=== PATIENT | female | born 2000 | race Caucasian/White ===

== ENCOUNTER 2020-05-26 16:10 | Emergency (ER) | payer MEDICAID, SELFPAY ==
[2020-05-26 16:15] VITALS: BP 167/81; PULSE 106; RESP 17; TEMP 36.9; O2SAT 99
--- NOTE | 2020-05-26 16:33 | ED.FEMALEGU ---
HPI - Female Genitourinary General Chief complaint: Vaginal Bleeding Stated complaint: vaginal bleeding Time Seen by Provider: 05/26/20 16:14 Source: patient and RN notes reviewed Mode of arrival: ambulatory Limitations: no limitations History of Present Illness MD elicited complaint: vaginal bleeding Onset (ago): month(s) (8) Related Data Home Medications Medication Instructions Recorded Confirmed No Home Medications 05/26/20 05/26/20 Allergies Allergy/AdvReac Type Severity Reaction Status Date / Time No Known Allergies Allergy Verified 05/26/20 16:24 Review of Systems Review of Systems: All systems reviewed & are unremarkable except as noted in HPI and below PMFSH Past Medical History Medical History (Updated 05/26/20 @ 17:02 by Gabino Santana MD) Hepatitis C Surgical History Surgical History (Updated 05/26/20 @ 16:45 by Gabino Santana MD) History of appendectomy Social History Social History (Updated 05/26/20 @ 16:45 by Gabino Santana MD) Smoking status: Light tobacco smoker Tobacco type: cigarettes Alcohol intake: current Alcohol use details: occasional Exam Const: General: healthy appearing and no acute distress Nutritional Appearance: well nourished and thin Orientation/consciousness: patient oriented x3 Other: female nurse in room during examination HENMT: Head: normal to inspection Face and sinus: normal facial exam Eyes: Conjunctivae: conjunctivae normal Pupils: Equal, round and reactive pupils present EOM: EOMs intact bilaterally Neck: Neck: normal visual inspection Resp: Effort & Inspection: normal respiratory effort Auscultation: clear to auscultation bilaterally Cardio: Rate: regular rate Rhythm: regular rhythm GI: GI Palp: Yes Soft to palpation and No Tenderness to palpation present (GI) Auscultation: normal bowel sounds Back/Spine/Pelvis: Cervical Spine: cervical ROM normal Thoracic/Lumbar Spine: thoraco-lumbar ROM normal Skin: General skin exam: normal color Rashes: no rashes Neuro: General: patient oriented x3, moves all extremities, no meningeal signs and no focal motor deficits Speech: normal speech Gait exam (Neuro): Normal gait present Extrem: General: normal to inspection and no clubbing, cyanosis or edema Psych: Mental Status: mental status grossly normal Affect: normal affect Attitude: cooperative Thought content: Yes Normal thought content present Judgement: Good judgement present (Psych) Course Vital Signs Vital signs: Vital Signs Temperature 36.9 C 05/26/20 16:15 Pulse Rate 106 H 05/26/20 16:15 Respiratory Rate 17 05/26/20 16:15 Blood Pressure 167/81 H 05/26/20 16:15 Pulse Oximetry 99 05/26/20 16:15 Temperature 36.9 C 05/26/20 16:15 Pulse Rate 106 H 05/26/20 16:15 Respiratory Rate 15 05/26/20 17:08 Blood Pressure 167/81 H 05/26/20 16:15 Pulse Oximetry 99 05/26/20 16:15 MDM - Female Genitourinary MDM Narrative Medical decision making narrative: I discussed differential diagnosis with the patient. Is possible that she is having side effects from the Nexplanon implant causing irregular bleeding. She also may be having retained fragments of conception status post her delivery. Recommended she see a field clerk for further evaluation and possible dilation and curettage. Discharge Plan Discharge Clinical Impression: Dysfunctional uterine bleeding Patient Disposition: Home, Self-Care Condition: Stable Instructions: Abnormal (Dysfunctional) Uterine Bleeding (ED) Additional Instructions: follow-up with field clerk in the next 7-10 days. Continues in tampons as needed. Prescriptions: No Action No Home Medications RF: 0 Follow-up/Referrals: UNKNOWN,DOCTOR [Primary Care Provider] - Time of Disposition: 17:02 Discharge Date/Time: 05/26/20 17:09
[2020-05-26 17:08] VITALS: RESP 15
== END 2020-05-26 17:09 | disposition home or self-care (01) ==
PROVIDERS: Emergency Provider Emergency Medicine
DX: N93.8 Other specified abnormal uterine and vaginal bleeding (principal)
CPT/HCPCS: 99281

== ENCOUNTER 2021-01-10 22:34 | Emergency (ER) | payer MEDICAID, SELFPAY ==
[2021-01-10 23:00] VITALS: BP 138/84; PULSE 81; RESP 20; TEMP 36.7; O2SAT 94
--- NOTE | 2021-01-10 23:21 | ED.EXTPRO ---
HPI - Extremity Problem General Stated complaint: fingers and feet turning purple, burning up. Source: patient Mode of arrival: ambulatory Limitations: no limitations History of Present Illness HPI Narrative: this is a 20-year-old female with a history of hepatitis C complains of some cold extremities mainly in her fingers that change colors and in her toes as well currently not having these symptoms but states that it occurs off and on and has been going on for months, currently has some some dizziness but no syncope no fainting no fever chills no chest pain or shortness of breath. Complaint: extremity pain and cold extremity Onset (ago): month(s) Pain Consistency: intermittent and now resolved Location: upper extremity and lower extremity Severity scale (1-10): 4 Quality: burning Radiation: none Relieving factors: nothing Exacerbating factors: nothing Associated symptoms: denies other symptoms Related Data Allergies Allergy/AdvReac Type Severity Reaction Status Date / Time No Known Allergies Allergy Verified 05/26/20 16:24 Review of Systems Review of Systems: All systems reviewed & are unremarkable except as noted in HPI and below PMFSH Past Medical History Medical History Hepatitis C Surgical History Surgical History History of appendectomy Social History Social History Smoking status: Light tobacco smoker Tobacco type: cigarettes Alcohol intake: current Exam Const: General: no acute distress Orientation/consciousness: patient oriented x3 HENMT: Head: normal to inspection Eyes: Conjunctivae: conjunctivae normal Pupils: Equal, round and reactive pupils present Neck: Neck: normal visual inspection, no lymphadenopathy and no meningeal signs Chest: Chest palpation & inspection: normal inspection of the chest Resp: Effort & Inspection: normal respiratory effort Cardio: Rate: regular rate Rhythm: regular rhythm GI: GI Palp: Yes Soft to palpation : General: Yes no CVA tenderness Urinary Catheter: Urinary Catheter: patent and draining Back/Spine/Pelvis: Back: no CVA tenderness Skin: General skin exam: normal color Rashes: no rashes Neuro: General: patient oriented x3, moves all extremities, no meningeal signs and no focal motor deficits Extrem: General: normal to inspection and no pedal edema Psych: Mental Status: mental status grossly normal Course Course Emergency Course: Currently not having any symptoms will give the patient a dose of Norvasc 2.5 here in the ER and will prescribe a dose and recommend follow-up with her primary care physician. Critical Care Time Critical Care Time Critical Care Time: No Discharge Plan Discharge Clinical Impression: Raynaud's disease Qualifiers: Raynaud?s-associated gangrene presence: without gangrene Qualified Code(s): I73.00 - Raynaud's syndrome without gangrene Patient Disposition: Home, Self-Care Condition: Stable Instructions: Antibiotic Form, Raynaud Disease (ED) Additional Instructions: follow-up with primary care physician within 1 week for further evaluation and treatment. Take medicine as prescribed. Prescriptions: New amlodipine [Norvasc] 2.5 mg tablet 2.5 mg PO DAILY Qty: 14 RF: 0 Follow-up/Referrals: UNKNOWN,DOCTOR [Primary Care Provider] - Time of Disposition: 23:25
[2021-01-10] MEDS: amLODIPine BESYLATE 5 MG TABLET (23:56)
[2021-01-10 23:58] VITALS: BP 138/84; PULSE 80; RESP 20; TEMP 36.6; O2SAT 97
== END 2021-01-11 00:01 | disposition home or self-care (01) ==
PROVIDERS: Emergency Provider Emergency Medicine
DX: I73.00 Raynaud's syndrome without gangrene (principal); M79.603 Pain in arm, unspecified; M79.606 Pain in leg, unspecified; Z86.19 Personal history of other infectious and parasitic diseases; F17.200 Nicotine dependence, unspecified, uncomplicated
CPT/HCPCS: 99283; A9270

== ENCOUNTER 2021-02-13 14:18 | Emergency (ER) | payer BC, SELFPAY ==
--- NOTE | 2021-02-13 14:36 | ED.SKABFB ---
HPI - Skin/Abscess/Foreign Bdy General Chief complaint: Skin/Abscess/Foreign Body Stated complaint: Bit by spider numb/burning Time Seen by Provider: 02/13/21 14:36 Source: patient Mode of arrival: ambulatory Limitations: no limitations History of Present Illness HPI narrative: 20-year-old woman who was previously well comes in today complaining of a spider bite on her right upper back. Patient states that she glimpsed a frank spider that was fuzzy and size of a dollar coin when she fell to the injury. She states she feels ill nauseous but attributes that to walking to the hospital. She denies any vomiting, fever, sweats, weakness. She states there is some numbness around the wound and that the wound itself stings. complaint: insect bite/sting Onset (ago): minute(s) (30) Tetanus up to date: yes Location: back Severity: mild Quality: burning Pain Consistency: constant Relieving factors: none Exacerbating factors: none Context: witnessed insect bite Associated symptoms: nausea Treatments prior to arrival: none Related Data Allergies Allergy/AdvReac Type Severity Reaction Status Date / Time No Known Allergies Allergy Verified 05/26/20 16:24 Review of Systems Review of Systems: All systems reviewed & are unremarkable except as noted in HPI and below Constitutional: Constitutional: Denies fatigue and Denies weakness ENT: Denies nasal congestion and Denies sore throat Cardiovascular: Cardiovascular: Denies chest pain and Denies radiating jaw, neck or arm pain Respiratory: Respiratory: Denies cough and Denies dyspnea Gastrointestinal: Gastrointestinal: Denies abdominal pain, Reports nausea and Denies vomiting Musculoskeletal: Musculoskeletal: Denies back pain, Denies arthralgias and Denies joint swelling Integumentary/Breasts: Skin/Breast: Denies pruritus, Denies erythema and Denies rash Neurologic: Denies vertigo, Denies dizziness and Denies syncope Hematologic/Lymphatic: Hematologic/Lymphatic: Denies easy bleeding and Denies easy bruising Allergic/Immunologic: Allergic/Immunologic: Denies lip swelling, Denies throat swelling and Denies wheezing PMFSH Past Medical History Medical History Hepatitis C Surgical History Surgical History History of appendectomy Social History Social History Smoking status: Light tobacco smoker Tobacco type: cigarettes Alcohol intake: current Exam Const: General: healthy appearing and alert Orientation/consciousness: patient oriented x3 Limitations: no limitations Other: Mildly anxious Eyes: Conjunctivae: conjunctivae normal Pupils: Equal, round and reactive pupils present EOM: EOMs intact bilaterally Resp: Effort & Inspection: normal respiratory effort and not labored Auscultation: clear to auscultation bilaterally, no rales, no rhonchi and no wheezes Cardio: Rate: regular rate Rhythm: regular rhythm Heart sounds: no murmurs Skin: General skin exam: normal color, no jaundice and no pallor Rashes: no rashes Other: 1.5 x 1 cm raised area on the right upper back with some mild surrounding erythema. Appears to be a very small central wound. No active bleeding. Neuro: General: patient oriented x3, moves all extremities, no focal motor deficits and CN's II-XI intact bilaterally Speech: normal speech Gait exam (Neuro): Normal gait present Extrem: General: normal to inspection and no clubbing, cyanosis or edema Psych: Appearance: grossly normal and well kempt Mental Status: mental status grossly normal Affect: normal affect Attitude: cooperative Thought content: Yes Normal thought content present Discharge Plan Discharge Clinical Impression: Spider bite Qualifiers: Encounter type: initial encounter Injury intent: accidental or unintentional Qualified Code(s): T63.301A - Toxic effect of
[2021-02-13 14:37] VITALS: BP 122/82; PULSE 110; RESP 16; TEMP 36.8; O2SAT 98
== END 2021-02-13 14:50 | disposition home or self-care (01) ==
PROVIDERS: Emergency Provider Emergency Medicine
DX: T63.301A Toxic effect of unspecified spider venom, accidental (unintentional), initial encounter (principal)
CPT/HCPCS: 99281; 99282

== ENCOUNTER 2021-03-30 12:33 | Outpatient (CLI) | payer BC, SELFPAY ==
[2021-03-30 12:44] LABS: Basophils Absolute Auto 0.03 K/mm3 (0.00-0.10); Basophils Percent Auto 0.3 % (0.0-1.0); Eosinophils Absolute Auto 0.09 K/mm3 (0.02-0.50); Hematocrit 40.8 % (35.0-49.0); Hemoglobin 13.6 g/dL (12.0-15.0); Immature Granulocyte Absolute 0.02 K/mm3 (0.00-0.00); Immature Granulocyte Percent A 0.2 % (0.0-0.0); Lymphocytes Percent Auto 21.6 % (18.0-42.0); Mean Corpuscular HGB Conc 33.3 g/dL (32.0-36.0); Mean Corpuscular Hemoglobin 26.5 pg (27.0-31.0); Mean Corpuscular Volume 79.4 fL (78.0-102.0); Mean Platelet Volume 11.5 fl (9.2-11.8); Monocytes Absolute Auto 0.54 K/mm3 (0.10-0.90); Monocytes Percent Auto 6.1 % (2.0-11.0); Neutrophils Absolute Auto 6.2 K/mm3 (1.7-7.2); Neutrophils Percent Auto 70.8 % (50.0-70.0); Platelet Count Result 227 K/mm3 (150-420); Red Blood Count 5.14 M/mm3 (4.20-5.40); Red Cell Distribution Width 13.2 % (11.6-14.4); White Blood Count 8.8 K/mm3 (4.8-10.8)
[2021-03-30 12:59] LABS: INR 1.1; Prothrombin Time 11.4 Seconds (9.50-12.10)
[2021-03-30 13:18] LABS: Alanine Aminotransferase 99 U/L (14-59); Alkaline Phosphatase 74 U/L (46-116); Anion Gap 11 mmol/L (8-16); Aspartate Amino Transferase 44 U/L (15-37); Bilirubin,Total 0.6 mg/dL (0.00-1.00); Blood Urea Nitrogen 11 mg/dL (7-18); Calcium 8.8 mg/dL (8.5-10.1); Carbon Dioxide 24 mmol/L (21-32); Chloride 106 mmol/L (98-108); Estimated Glomerular Filt Rate > 60; Glucose 91 mg/dL (70-99); Osmolality Calculated 291 mOsm/kg (285-295); Sodium 141 mmol/L (136-145); Total Protein 7.6 g/dL (6.4-8.2)
[2021-04-02 18:36] LABS: Hepatitis C Additional Testing Has been added; Hepatitis C Virus Antibody Reactive (Nonreactive)
[2021-04-05 14:42] LABS: Hepatitis C Viral RNA PCR 2960 IU/mL
== END 2021-03-30 12:34 | disposition home or self-care (01) ==
LOC: CHSLAB 12:35
PROVIDERS: PCP Family Medicine; Visit Provider Family Medicine
DX: B19.20 Unspecified viral hepatitis C without hepatic coma (principal)
CPT/HCPCS: 36415; 80053; 85025; 85610; 85730

== ENCOUNTER 2021-05-01 14:20 | Emergency (ER) | payer BC, SELFPAY ==
--- NOTE | ~2021-05-01 | US_ITS ---
EXAMINATION: US right upper quadrant DATE: 05/01/2021 15:13 INDICATION: Right upper quadrant abdominal pain. Nausea. Hepatitis C. TECHNIQUE: Multiple grayscale and Doppler ultrasound images of the abdomen were obtained. COMPARISON: None FINDINGS: The visualized portions of the head, body, and tail of the pancreas are normal. The liver i s normal without focal lesion. No liver surface nodularity. There is normal flow in main portal vein. The gallbladder is contracted. No gallstones or gallbladder wall thickening. There was no sonographi c Bro sign. The common duct is normal and measures 3 mm. IMPRESSION: 1. Normal right upper quadrant ultrasound. Reviewed, dictated and finalized at location [facility].
--- NOTE | ~2021-05-01 | CT_ITS ---
EXAMINATION: CT abdomen pelvis w con DATE: 05/01/2021 17:26 INDICATION: Right upper quadrant abdominal pain, tenderness. Nausea, diarrhea. TECHNIQUE: Computed tomography (CT) of the abdomen and pelvis was performed with 100 cc Omnipaque 350 intravenous contrast. Automated exposure control and iterative reconstruction technique were employe d. Exam dose: 189.99 mGy-cm total exam DLP. COMPARISON: 05/01/2021 right upper quadrant abdominal ultrasound, reported normal FINDINGS: The lung bases are clear. Normal heart size. No pericardial or pleural effusion. The liver, gallbladder, bile ducts, spleen, pancreas, pancreatic duct, and adrenal glands and kidneys are normal. No urinary tract calculus or hydroureteronephrosis. Normal caliber of the abdominal aorta. No intraperitoneal or retroperitoneal or pelvic mass lesion or adenopathy or ascites. The uterus and adnexal areas and urinary bladder appear normal. No bowel obstruction, bowel wall thickening, pneumatosis or intraperitoneal free air is detected. No suspicious osteolytic or osteoblastic lesions. IMPRESSION: No significant abnormality Reviewed, dictated and finalized at [facility]. Reviewed, dictated and finalized at location [facility]. IMPRESSION: No significant abnormality
--- NOTE | ~2021-05-01 | XR_ITS ---
XR chest 2V DATE: 05/01/2021 17:26 INDICATION: Weakness TECHNIQUE: PA and lateral views COMPARISON: None FINDINGS: Normal heart size. No hilar or mediastinal enlargement. No pulmonary infiltrate or consolid ation, pleural effusion or pulmonary vascular congestion or pneumothorax. Included skeletal structure s appear normal. IMPRESSION: Negative Reviewed, dictated and finalized at location [facility]. IMPRESSION: Negative
[2021-05-01 14:31] VITALS: BP 132/91; PULSE 95; RESP 16; TEMP 36.9; O2SAT 99
--- NOTE | 2021-05-01 14:44 | ED.ABDPAIN ---
HPI - Abdominal Pain General Chief Complaint: Abdominal Pain Stated Complaint: HAS HEP C LIVER IS HURTING Time Seen by Provider: 05/01/21 14:24 Source: patient Mode of arrival: ambulatory Limitations: no limitations History of Present Illness HPI narrative: 20-year-old woman with a history of hepatitis-C comes ER complaining of right upper quadrant pain that has been present for 4-5 days. The pain comes and goes and is not worsened by fever but is worse by taking a deep breath and with certain movements of her trunk. Pain was intermittent at 1st and now it is constant. She states she has had some mild intermittent nausea and decreased appetite but has had no fever, vomiting. She said she has had soft light brown stools but no black or bloody stools and no dysuria, vaginal discharge, chest pain, shortness of breath or cough. She states she is currently on her period. MD elicited complaint: abdominal pain Pertinent past history: other (Hepatitis-C) Onset (ago): day(s) (4-5) Pain Consistency: constant Location: RUQ Pain scale (0-10): 10 Quality: sharp Radiation: none Migration to: no migration Exacerbating factors: movement and other (Taking a deep breath) Relieving factors: nothing Associated symptoms: nausea Related Data Allergies Allergy/AdvReac Type Severity Reaction Status Date / Time No Known Allergies Allergy Verified 05/26/20 16:24 Review of Systems Review of Systems: All systems reviewed & are unremarkable except as noted in HPI and below Constitutional: Constitutional: Denies chills and Denies fever(s) Eyes: Eyes: Denies change in vision and Denies photophobia ENT: Denies nasal congestion and Denies sore throat Cardiovascular: Cardiovascular: Denies chest pain and Denies radiating jaw, neck or arm pain Respiratory: Respiratory: Denies cough and Denies dyspnea Gastrointestinal: Gastrointestinal: Reports abdominal pain, Denies diarrhea, Reports nausea and Denies vomiting Genitourinary: Genitourinary: Denies hematuria, Denies nocturia and Denies dysuria Musculoskeletal: Musculoskeletal: Denies back pain, Denies arthralgias and Denies joint swelling Integumentary/Breasts: Skin/Breast: Denies pruritus, Denies erythema and Denies rash Neurologic: Denies vertigo, Denies dizziness, Denies syncope and Denies headache(s) Hematologic/Lymphatic: Hematologic/Lymphatic: Denies easy bleeding and Denies easy bruising Allergic/Immunologic: Allergic/Immunologic: Denies lip swelling and Denies throat swelling PMFSH Past Medical History Medical History Hepatitis C Surgical History Surgical History History of appendectomy Social History Social History Smoking status: Light tobacco smoker Tobacco type: cigarettes Alcohol intake: current Alcohol use details: occasional Exam Const: General: healthy appearing, no acute distress and alert Orientation/consciousness: patient oriented x3 Limitations: no limitations HENMT: Head: normal to inspection General nose exam: Normal nares present Face and sinus: normal facial exam Mouth: Yes moist mucous membranes Throat: posterior oropharynx normal Eyes: Conjunctivae: conjunctivae normal Pupils: Equal, round and reactive pupils present EOM: EOMs intact bilaterally Resp: Effort & Inspection: normal respiratory effort and not labored Auscultation: clear to auscultation bilaterally, no rales, no rhonchi and no wheezes Cardio: Rate: regular rate Rhythm: regular rhythm Heart sounds: no murmurs GI: GI Palp: Yes Soft to palpation, Yes Tenderness to palpation present (GI) (Mild right upper quadrant.), No Guarding due to palpation present (GI) and No Palpable mass present Auscultation: normal bowel sounds Skin: General skin exam: normal color, no jaundice and no pallor Rashes: no rashes Neuro: G
[2021-05-01 15:21] LABS: Add Urine Microscopic? YES; Appearance Urine Clear (Clear); Basophils Absolute Auto 0.04 K/mm3 (0.00-0.10); Basophils Percent Auto 0.5 % (0.0-1.0); Bilirubin Urine Negative (Negative); Blood Urine 2+ (Negative); Color Urine Light Yellow (Yellow); Eosinophils Absolute Auto 0.13 K/mm3 (0.02-0.50); Eosinophils Percent Auto 1.8 % (1.0-6.0); Glucose Urine UA Negative (Negative); Hematocrit 41.3 % (35.0-49.0); Hemoglobin 14.1 g/dL (12.0-15.0); Immature Granulocyte Absolute 0.01 K/mm3 (0.00-0.00); Immature Granulocyte Percent A 0.1 % (0.0-0.0); Ketones Urine Negative (Negative); Leukocyte Esterase Ur Negative LEU/UL (Negative); Lymphocytes Absolute Auto 2.12 K/mm3 (1.10-4.50); Lymphocytes Percent Auto 28.6 % (18.0-42.0); Mean Corpuscular HGB Conc 34.1 g/dL (32.0-36.0); Mean Corpuscular Hemoglobin 27.3 pg (27.0-31.0); Mean Corpuscular Volume 79.9 fL (78.0-102.0); Mean Platelet Volume 11.1 fl (9.2-11.8); Monocytes Absolute Auto 0.75 K/mm3 (0.10-0.90); Monocytes Percent Auto 10.1 % (2.0-11.0); Neutrophils Absolute Auto 4.4 K/mm3 (1.7-7.2); Neutrophils Percent Auto 58.9 % (50.0-70.0); Nitrate Urine Negative (Negative); Platelet Count Result 271 K/mm3 (150-420); Protein Urine Negative (Negative); Red Blood Count 5.17 M/mm3 (4.20-5.40); Red Cell Distribution Width 13.4 % (11.6-14.4); Specific Grav Ur 1.015 (1.010-1.020); Urobilinogen Urine 0.2 mg/dL (0.2-1.0); White Blood Count 7.4 K/mm3 (4.8-10.8); pH Urine 6.5 (5.0-8.0)
[2021-05-01 15:29] LABS: Squamous Epithelial Cell Urine Rare /hpf (Few); WBC Urine 0-3 /hpf (0-3)
[2021-05-01 15:30] LABS: Bacteria Urine Trace /hpf
[2021-05-01 15:36] LABS: Alanine Aminotransferase 93 U/L (14-59); Albumin Level 4.2 g/dL (3.4-5.0); Alkaline Phosphatase 75 U/L (46-116); Anion Gap 11 mmol/L (8-16); Aspartate Amino Transferase 47 U/L (15-37); Bilirubin,Total 0.9 mg/dL (0.00-1.00); Blood Urea Nitrogen 14 mg/dL (7-18); Calcium 9.5 mg/dL (8.5-10.1); Carbon Dioxide 29 mmol/L (21-32); Chloride 104 mmol/L (98-108); Estimated CRCL calculation 72 ml/min; Estimated Glomerular Filt Rate > 60; Glucose 69 mg/dL (70-99); Lipase 69 U/L (73-393); Osmolality Calculated 296 mOsm/kg (285-295); Potassium 3.6 mmol/L (3.5-5.1); Sodium 144 mmol/L (136-145); Total Protein 8.3 g/dL (6.4-8.2)
[2021-05-01 15:39] LABS: Lactic Acid Reflex 0.9 mmol/L (0.4-2.0)
[2021-05-01] MEDS: PANTOPRAZOLE SODIUM IV 40 MG VIAL IV PUSH (16:25)
[2021-05-01] MEDS: ONDANSETRON INJ 4 MG/2 ML VIAL IV PUSH (16:25)
[2021-05-01 17:05] LABS: Urine Pregnancy Test Negative
[2021-05-01 17:06] LABS: Pregnancy On Board Control Positive
[2021-05-01 17:55] VITALS: BP 134/81; PULSE 97; RESP 14; TEMP 36.6; O2SAT 99
== END 2021-05-01 17:58 | disposition home or self-care (01) ==
PROVIDERS: Emergency Provider Emergency Medicine; PCP Family Medicine
DX: R10.11 Right upper quadrant pain (principal)
CPT/HCPCS: 36415; 71046; 74177; 76705; 80053; 81001; 81025; 83605; 83690; 85025; 96374; 96375; 99283; 99284; C9113; J2405; Q9967

== ENCOUNTER 2021-06-12 15:56 | Outpatient (CLI) | payer BC, SELFPAY ==
[2021-06-12 16:22] LABS: Amphetamine Screen Urine Negative (Negative); Barbiturate Screen Urine Negative (Negative); Benzodiazepines Screen Urine Negative (Negative); Cannabinoid Screen Urine Positive (Negative); Cocaine Screen Urine Negative (Negative); Methadone Screen Urine Negative (Negative); Opiate Screen Urine Negative (Negative); Phencyclidine Screen Urine Negative (Negative)
[2021-06-12 16:30] LABS: INR 1.2; Prothrombin Time 12.3 Seconds (9.50-12.10)
[2021-06-17 17:47] LABS: Alpha Fetoprotein Tumor Marker 1.7 ng/mL (<6.1)
== END 2021-06-12 15:57 | disposition home or self-care (01) ==
PROVIDERS: PCP Family Medicine
DX: B19.20 Unspecified viral hepatitis C without hepatic coma (principal)
CPT/HCPCS: 36415; 80307; 82105; 85610

== ENCOUNTER 2021-07-11 14:53 | Emergency (ER) | payer BC, SELFPAY ==
[2021-07-11 15:08] VITALS: BP 128/80; PULSE 108; RESP 20; TEMP 36.6; O2SAT 100
[2021-07-11] MEDS: SODIUM CHLORIDE 0.9% IV 1,000 ML 999 ML IV CONT (15:39)
[2021-07-11] MEDS: ONDANSETRON INJ 4 MG/2 ML VIAL IV PUSH (15:40)
[2021-07-11 15:57] LABS: Basophils Absolute Auto 0.05 K/mm3 (0.00-0.10); Basophils Percent Auto 0.5 % (0.0-1.0); Eosinophils Absolute Auto 0.03 K/mm3 (0.02-0.50); Eosinophils Percent Auto 0.3 % (1.0-6.0); Hematocrit 43.2 % (35.0-49.0); Hemoglobin 14.7 g/dL (12.0-15.0); Immature Granulocyte Absolute 0.04 K/mm3 (0.00-0.00); Immature Granulocyte Percent A 0.4 % (0.0-0.0); Lymphocytes Absolute Auto 1.86 K/mm3 (1.10-4.50); Lymphocytes Percent Auto 19.6 % (18.0-42.0); Mean Corpuscular Hemoglobin 27.3 pg (27.0-31.0); Mean Corpuscular Volume 80.3 fL (78.0-102.0); Mean Platelet Volume 11.1 fl (9.2-11.8); Monocytes Percent Auto 7.4 % (2.0-11.0); Neutrophils Absolute Auto 6.8 K/mm3 (1.7-7.2); Neutrophils Percent Auto 71.8 % (50.0-70.0); Platelet Count Result 312 K/mm3 (150-420); Red Blood Count 5.38 M/mm3 (4.20-5.40); Red Cell Distribution Width 13.2 % (11.6-14.4); White Blood Count 9.5 K/mm3 (4.8-10.8)
[2021-07-11 16:03] LABS: Amphetamine Screen Urine Negative (Negative); Barbiturate Screen Urine Negative (Negative); Benzodiazepines Screen Urine Negative (Negative); Cannabinoid Screen Urine Positive (Negative); Cocaine Screen Urine Negative (Negative); Methadone Screen Urine Negative (Negative); Opiate Screen Urine Negative (Negative); Phencyclidine Screen Urine Negative (Negative)
[2021-07-11 16:20] LABS: Alanine Aminotransferase 132 U/L (14-59); Albumin Level 4.4 g/dL (3.4-5.0); Alkaline Phosphatase 83 U/L (46-116); Anion Gap 13 mmol/L (8-16); Aspartate Amino Transferase 56 U/L (15-37); Bilirubin,Total 0.8 mg/dL (0.00-1.00); Blood Urea Nitrogen 10 mg/dL (7-18); Calcium 9.1 mg/dL (8.5-10.1); Carbon Dioxide 27 mmol/L (21-32); Chloride 101 mmol/L (98-108); Creatine Kinase 109 U/L (26-192); Estimated CRCL calculation 69 ml/min; Estimated Glomerular Filt Rate > 60; Glucose 80 mg/dL (70-99); Osmolality Calculated 290 mOsm/kg (285-295); Potassium 3.5 mmol/L (3.5-5.1); Sodium 141 mmol/L (136-145); Total Protein 8.8 g/dL (6.4-8.2)
[2021-07-11 16:21] LABS: Ethanol < 3 mg/dL (0-6)
--- NOTE | 2021-07-11 16:37 | ED.NAVMDI ---
HPI - Nausea/Vomiting/Diarrhea General Chief complaint: Nausea/Vomiting/Diarrhea Stated complaint: Alcohol poisoning Source: patient Mode of arrival: ambulatory Limitations: no limitations History of Present Illness HPI Narrative: this is a 20-year-old female that presents with dry heaves feeling dehydrated after she had a binge drinking overnight and currently having some nausea with dry heaves and had episodes of vomiting with some epigastric discomfort with no abdominal pain no flank pain no dysuria, patient also describes feeling a little dizzy, with no chest pain no shortness of breath. MD elicited complaint: nausea and vomiting Onset (ago): day(s) Description of vomiting: watery Associated nausea: Yes Associated abdominal pain: Yes Location of pain: epigastric Related Data Home Medications Medication Instructions Recorded Confirmed sulfamethoxazole-trimethoprim 1 tablet PO BID 07/11/21 07/11/21 Allergies Allergy/AdvReac Type Severity Reaction Status Date / Time No Known Allergies Allergy Verified 07/11/21 15:13 Review of Systems Review of Systems: All systems reviewed & are unremarkable except as noted in HPI and below PMFSH Past Medical History Medical History Hepatitis C Surgical History Surgical History History of appendectomy Social History Social History Smoking status: Light tobacco smoker Tobacco type: cigarettes Alcohol intake: current Alcohol use details: occasional Exam Const: General: no acute distress Orientation/consciousness: patient oriented x3 HENMT: Head: normal to inspection Eyes: Pupils: Equal, round and reactive pupils present Neck: Neck: normal visual inspection, no lymphadenopathy and no meningeal signs Chest: Chest palpation & inspection: normal inspection of the chest Resp: Effort & Inspection: normal respiratory effort Cardio: Rate: regular rate Rhythm: regular rhythm GI: GI Palp: Yes Soft to palpation and Yes Tenderness to palpation present (GI) ( Epigastric) : General: Yes no CVA tenderness Urinary Catheter: Urinary Catheter: patent and draining Back/Spine/Pelvis: Back: no CVA tenderness Skin: General skin exam: normal color Rashes: no rashes Extrem: General: normal to inspection Psych: Mental Status: mental status grossly normal Course Course Emergency Course: patient states that her dizziness feels better has improved with IV fluids and Zofran, reviewed her laboratory findings. Patient currently resting comfortably and will discharge patient and will discharge with Zofran as needed and advised clear liquid diet till she starts tolerating her food intake. Vital Signs Vital signs: Vital Signs Temperature 36.6 C 07/11/21 15:08 Pulse Rate 108 H 07/11/21 15:08 Respiratory Rate 20 07/11/21 15:08 Blood Pressure 128/80 07/11/21 15:08 Pulse Oximetry 100 07/11/21 15:08 Temperature 36.6 C 07/11/21 15:08 Pulse Rate 108 H 07/11/21 15:08 Respiratory Rate 20 07/11/21 15:08 Blood Pressure 128/80 07/11/21 15:08 Pulse Oximetry 100 07/11/21 15:08 MDM - Nausea/Vomiting/Diarrhea Lab Data Result diagrams: 07/11/21 15:25 07/11/21 15:25 Labs: Lab Results 07/11/21 07/11/21 07/11/21 Range/Units 15:25 15:25 15:25 WBC 9.5 (4.8-10.8) K/mm3 RBC 5.38 (4.20-5.40) M/mm3 Hgb 14.7 (12.0-15.0) g/dL Hct 43.2 (35.0-49.0) % MCV 80.3 (78.0-102.0) fL MCH 27.3 (27.0-31.0) pg MCHC 34.0 (32.0-36.0) g/dL RDW 13.2 (11.6-14.4) % Plt Count 312 (150-420) K/mm3 MPV 11.1 (9.2-11.8) fl Immature Gran % (Auto) 0.4 H (0.0-0.0) % Neut % (Auto) 71.8 H (50.0-70.0) % Lymph % (Auto) 19.6 (18.0-42.0) % Hoke % (Auto) 7.4 (2.0-11.0) % Eos % (Auto) 0.3 L (1.0-6.0) %
[2021-07-11 17:01] VITALS: BP 115/70; PULSE 91; RESP 20; TEMP 37.2; O2SAT 100
== END 2021-07-11 17:05 | disposition home or self-care (01) ==
PROVIDERS: Emergency Provider Emergency Medicine; PCP Family Medicine
DX: E86.0 Dehydration (principal)
CPT/HCPCS: 36415; 80053; 80307; 82550; 83735; 85025; 96361; 96374; 99283; 99284; J2405; J7030

== ENCOUNTER 2021-08-08 16:19 | Emergency (ER) | payer BC, SELFPAY ==
[2021-08-08 16:25] VITALS: BP 123/71; PULSE 106; RESP 24; TEMP 37; O2SAT 100
--- NOTE | 2021-08-08 16:27 | ED.GENADULT ---
HPI - General Adult General Chief complaint: Nausea/Vomiting/Diarrhea Stated complaint: amb Time Seen by Provider: 08/08/21 16:22 Source: patient Mode of arrival: EMS Limitations: no limitations History of Present Illness HPI narrative: Annie is a 20F with a PMH of anemia, Hep C, and IV drug use (clean for 6 years) presented to the ED via EMS. She reportedly drank a bottle of apple crown last night and is very dizzy today as well as anxious and nauseated. She could not tolerate PO fluids and her dizziness became worse so she came to the ED. She is not a frequent drinker. She only drinks twice a month. However, when she does she tends to overdrink. Related Data Allergies Allergy/AdvReac Type Severity Reaction Status Date / Time No Known Allergies Allergy Unverified 08/08/21 16:25 Review of Systems Constitutional: Constitutional: Reports no additional constitutional complaints, Denies chills and Denies fever(s) Eyes: Eyes: Reports no additional eye complaints ENT: Reports system reviewed and no additional complaints, except as documented Cardiovascular: Cardiovascular: Reports no additional cardiovascular complaints Respiratory: Respiratory: Reports no additional respiratory complaints Gastrointestinal: Gastrointestinal: Reports as per HPI Genitourinary: Genitourinary: Reports no additional female genitourinary complaints Musculoskeletal: Musculoskeletal: Reports no additional musculoskeletal complaints Integumentary/Breasts: Skin/Breast: Reports system reviewed and no additional complaints, except as docu Neurologic: Comments: tremors Psychiatric: Psychiatric: Reports anxiety and Reports depression Endocrine: Endocrine: Reports no additional endocrine complaints Hematologic/Lymphatic: Hematologic/Lymphatic: Reports no additional hematologic/lymphatic complaints Allergic/Immunologic: Allergic/Immunologic: Reports no additional allergic/immunologic complaints [facility] Past Medical History Medical History Hepatitis C Surgical History Surgical History History of appendectomy Social History Social History Smoking status: Light tobacco smoker Tobacco type: cigarettes Alcohol intake: current Alcohol use details: occasional Exam Const: General: no acute distress and alert Orientation/consciousness: patient oriented x3 Limitations: No altered mental status HENMT: Head: normal to inspection Other: atrauamtic. Dry mucous membranes Eyes: Conjunctivae: conjunctivae normal Pupils: Equal, round and reactive pupils present Neck: Neck: normal visual inspection Chest: Chest palpation & inspection: normal inspection of the chest Resp: Effort & Inspection: normal respiratory effort Auscultation: clear to auscultation bilaterally Cardio: Rate: tachycardic Rhythm: regular rhythm Heart sounds: no murmurs GI: Inspection: non-distended GI Palp: Yes Soft to palpation, No Tenderness to palpation present (GI) and No Guarding due to palpation present (GI) Skin: General skin exam: normal color Rashes: no rashes Neuro: General: patient oriented x3, moves all extremities and no focal motor deficits Other: no asterixes Extrem: General: normal to inspection Psych: Appearance: grossly normal Mental Status: mental status grossly normal Course Course Emergency Course: Ordered labs, fluids, zofran and ativan. Labs were largely unremarkable so she was discharged home. Vital Signs Vital signs: Vital Signs Temperature 98.6 F 08/08/21 16:25 Pulse Rate 106 H 08/08/21 16:25 Respiratory Rate 24 H 08/08/21 16:25 Blood Pressure 123/71 08/08/21 16:25 Pulse Oximetry 100 08/08/21 16:25 Temperature 98.6 F 08/08/21 16:25 Pulse Rate 106 H 08/08/21 16:25 Respiratory Rate 24 H 08/08/21 16:25 Blood Pressure 123/71
[2021-08-08 16:42] LABS: Basophils Absolute Auto 0.03 K/mm3 (0.00-0.10); Basophils Percent Auto 0.4 % (0.0-1.0); Eosinophils Absolute Auto 0.06 K/mm3 (0.02-0.50); Eosinophils Percent Auto 0.8 % (1.0-6.0); Hematocrit 42.7 % (35.0-49.0); Hemoglobin 14.5 g/dL (12.0-15.0); Immature Granulocyte Absolute 0.03 K/mm3 (0.00-0.00); Immature Granulocyte Percent A 0.4 % (0.0-0.0); Lymphocytes Absolute Auto 1.97 K/mm3 (1.10-4.50); Lymphocytes Percent Auto 25.1 % (18.0-42.0); Mean Corpuscular Volume 79.5 fL (78.0-102.0); Mean Platelet Volume 11.2 fl (9.2-11.8); Monocytes Absolute Auto 0.51 K/mm3 (0.10-0.90); Monocytes Percent Auto 6.5 % (2.0-11.0); Neutrophils Absolute Auto 5.2 K/mm3 (1.7-7.2); Neutrophils Percent Auto 66.8 % (50.0-70.0); Platelet Count Result 295 K/mm3 (150-420); Red Blood Count 5.37 M/mm3 (4.20-5.40); Red Cell Distribution Width 12.7 % (11.6-14.4); White Blood Count 7.8 K/mm3 (4.8-10.8)
[2021-08-08 16:54] LABS: Add Urine Microscopic? NO; Appearance Urine Clear (Clear); Bilirubin Urine Negative (Negative); Blood Urine Negative (Negative); Color Urine Light Yellow (Yellow); Glucose Urine UA Negative (Negative); Ketones Urine Negative (Negative); Leukocyte Esterase Ur Negative (Negative); Nitrate Urine Negative (Negative); Protein Urine Negative (Negative); Urobilinogen Urine 0.2 mg/dL (0.2-1.0); pH Urine 7.5 (5.0-8.0)
[2021-08-08 16:57] LABS: Pregnancy On Board Control Positive; Urine Pregnancy Test Negative
[2021-08-08 16:57] LABS: Alanine Aminotransferase 43 U/L (14-59); Albumin Level 4.3 g/dL (3.4-5.0); Alkaline Phosphatase 80 U/L (46-116); Ammonia < 10 umol/L (11-32); Anion Gap 15 mmol/L (8-16); Aspartate Amino Transferase 23 U/L (15-37); Bilirubin,Total 0.8 mg/dL (0.00-1.00); Blood Urea Nitrogen 14 mg/dL (7-18); Calcium 9.7 mg/dL (8.5-10.1); Carbon Dioxide 24 mmol/L (21-32); Chloride 104 mmol/L (98-108); Estimated CRCL calculation 65 ml/min; Estimated Glomerular Filt Rate > 60; Ethanol < 3 mg/dL (0-6); Glucose 95 mg/dL (70-99); Osmolality Calculated 296 mOsm/kg (285-295); Potassium 3.2 mmol/L (3.5-5.1); Sodium 143 mmol/L (136-145); Total Protein 8.7 g/dL (6.4-8.2)
[2021-08-08 17:00] LABS: Amphetamine Screen Urine Negative (Negative); Barbiturate Screen Urine Negative (Negative); Benzodiazepines Screen Urine Negative (Negative); Cannabinoid Screen Urine Positive (Negative); Cocaine Screen Urine Negative (Negative); Methadone Screen Urine Negative (Negative); Opiate Screen Urine Negative (Negative); Phencyclidine Screen Urine Negative (Negative)
[2021-08-08 17:03] LABS: Thyroid Stimulating Hormone 0.62 uIU/mL (0.36-3.74)
[2021-08-08] MEDS: SODIUM CHLORIDE 0.9% IV 1,000 ML 999 ML IV CONT (17:03)
[2021-08-08] MEDS: LORazepam INJ (*CRX) 2 MG/ML VIAL 1 MG IV PUSH (17:05)
[2021-08-08] MEDS: ONDANSETRON INJ 4 MG/2 ML VIAL IV PUSH (17:05)
[2021-08-08 18:09] VITALS: BP 105/70; PULSE 100; RESP 16; TEMP 36.4; O2SAT 100
== END 2021-08-08 18:05 | disposition home or self-care (01) ==
PROVIDERS: Emergency Provider Family Medicine; PCP Family Medicine
DX: F10.129 Alcohol abuse with intoxication, unspecified (principal)
CPT/HCPCS: 36415; 80053; 80307; 81003; 81025; 82140; 84443; 85025; 96361; 96374; 96375; 99283; 99284; J2060; J2405; J7030

== ENCOUNTER 2021-09-07 13:56 | Emergency (ER) | payer BC, SELFPAY ==
--- NOTE | ~2021-09-07 | US_ITS ---
EXAMINATION: US abdomen limited EXAM DATE: 09/07/2021 14:36 INDICATION: right upper quadrant pain. TECHNIQUE: Multiple grayscale and Doppler images of the abdomen right upper quadrant were obtained (b y a technologist who performed the scan) and subsequently reviewed. Comparison is made to prior exami nation from 05/01/2021. FINDINGS: The pancreatic head and body are normal in appearance. The pancreatic tail is not visualized. The l iver has normal echogenicity and contour. There are no focal liver lesions identified. There is no evidence of intrahepatic biliary duct dilation. Portal venous flow was seen in the hepatopedal, nor mal direction and has normal Doppler waveform. No right-sided hydronephrosis. Common bile duct measures 2 mm, which is normal. The gallbladder wall is normal in thickness, with ex pected amount of distention. No sonographic evidence of pericholecystic fluid. There is no cholelit hiases. Technologist performing exam reports patient did not demonstrate sonographic Bro's sign. Please note that this sign is less reliable in patients who have received pain medication. IMPRESSION: 1. Unremarkable abdominal ultrasound exam. Reviewed, dictated and finalized at location B. [employer]
[2021-09-07 14:12] VITALS: BP 109/71; PULSE 92; RESP 20; TEMP 36.5; O2SAT 99
--- NOTE | 2021-09-07 14:18 | ED.GENADULT ---
HPI - General Adult General Chief complaint: Abdominal Pain Stated complaint: abd/stomache pain History of Present Illness HPI narrative: Annie is a 20F with a PMH of anemia, Hep C, and IV drug use (clean for 6 years) presented to the ED with right upper quadrant pain. It started 7 hours ago and has become worse. It is a stabbing pain in her RUQ. She had 1 episode of diarrhea and has had some nausea. She denies fevers, chills, vomiting, CP and SOB. Related Data Home Medications Medication Instructions Recorded Confirmed escitalopram oxalate 10 mg PO DAILY 09/07/21 09/07/21 Allergies Allergy/AdvReac Type Severity Reaction Status Date / Time No Known Allergies Allergy Unverified 09/07/21 14:44 Review of Systems Constitutional: Constitutional: Reports no additional constitutional complaints Eyes: Eyes: Reports no additional eye complaints ENT: Reports system reviewed and no additional complaints, except as documented Cardiovascular: Cardiovascular: Reports no additional cardiovascular complaints Respiratory: Respiratory: Reports no additional respiratory complaints Gastrointestinal: Gastrointestinal: Reports as per HPI Genitourinary: Genitourinary: Reports no additional female genitourinary complaints Musculoskeletal: Musculoskeletal: Reports no additional musculoskeletal complaints Integumentary/Breasts: Skin/Breast: Reports system reviewed and no additional complaints, except as docu Neurologic: Reports system reviewed and no additional complaints, except as documented Psychiatric: Psychiatric: Reports no additional psychiatric complaints Endocrine: Endocrine: Reports no additional endocrine complaints Hematologic/Lymphatic: Hematologic/Lymphatic: Reports no additional hematologic/lymphatic complaints Allergic/Immunologic: Allergic/Immunologic: Reports no additional allergic/immunologic complaints [facility] Past Medical History Medical History Hepatitis C Surgical History Surgical History History of appendectomy Social History Social History Smoking status: Light tobacco smoker Tobacco type: cigarettes Alcohol intake: current Alcohol use details: occasional Exam Const: General: no acute distress and alert Orientation/consciousness: patient oriented x3 Limitations: No altered mental status HENMT: Head: normal to inspection Other: Normocephalic, atraumatic Eyes: Conjunctivae: conjunctivae normal Pupils: Equal, round and reactive pupils present Neck: Neck: normal visual inspection Chest: Chest palpation & inspection: normal inspection of the chest Resp: Effort & Inspection: normal respiratory effort, not labored and not tachypneic Auscultation: clear to auscultation bilaterally Cardio: Rate: regular rate Rhythm: regular rhythm GI: GI Palp: Yes Guarding due to palpation present (GI) and Yes Rigid due to palpation Other: Diffusely TTP but most TTP in the RUQ, with some guarding and rebound tenderness. +Bro sign : General: Yes no CVA tenderness Skin: General skin exam: normal color Rashes: no rashes Neuro: General: patient oriented x3, moves all extremities, no meningeal signs and CN's II-XI intact bilaterally Extrem: General: normal to inspection Psych: Mental Status: mental status grossly normal Thought content: Yes Normal thought content present Course Course Emergency Course: Ordered labs, US and IV acetaminophen (avoided narcotics given history of abuse) Labs and imaging were unremarkable. However, on repeat exam her abdomen had minimal tenderness and no guarding or rebound tenderness so she was discharged home. Vital Signs Vital signs: Vital Signs Temperature 97.7 F 09/07/21 14:12 Pulse Rate 92 09/07/21 14:12 Respiratory Rate 20 09/07/21 14:12 Blood Pressure 109/71 12
[2021-09-07 14:46] LABS: Basophils Absolute Auto 0.04 K/mm3 (0.00-0.10); Basophils Percent Auto 0.7 % (0.0-1.0); Eosinophils Absolute Auto 0.08 K/mm3 (0.02-0.50); Eosinophils Percent Auto 1.3 % (1.0-6.0); Hematocrit 39.2 % (35.0-49.0); Hemoglobin 13.2 g/dL (12.0-15.0); Immature Granulocyte Absolute 0.01 K/mm3 (0.00-0.00); Immature Granulocyte Percent A 0.2 % (0.0-0.0); Lymphocytes Absolute Auto 1.73 K/mm3 (1.10-4.50); Lymphocytes Percent Auto 28.5 % (18.0-42.0); Mean Corpuscular HGB Conc 33.7 g/dL (32.0-36.0); Mean Corpuscular Hemoglobin 27.4 pg (27.0-31.0); Mean Corpuscular Volume 81.5 fL (78.0-102.0); Mean Platelet Volume 11.9 fl (9.2-11.8); Monocytes Absolute Auto 0.51 K/mm3 (0.10-0.90); Monocytes Percent Auto 8.4 % (2.0-11.0); Neutrophils Absolute Auto 3.7 K/mm3 (1.7-7.2); Neutrophils Percent Auto 60.9 % (50.0-70.0); Platelet Count Result 224 K/mm3 (150-420); Red Blood Count 4.81 M/mm3 (4.20-5.40); Red Cell Distribution Width 13.2 % (11.6-14.4); White Blood Count 6.1 K/mm3 (4.8-10.8)
[2021-09-07 14:52] LABS: Add Urine Microscopic? NO; Appearance Urine Clear (Clear); Bilirubin Urine Negative (Negative); Blood Urine Negative (Negative); Color Urine Light Yellow (Yellow); Glucose Urine UA Negative (Negative); Ketones Urine Negative (Negative); Leukocyte Esterase Ur Negative (Negative); Nitrate Urine Negative (Negative); Protein Urine Negative (Negative); Specific Grav Ur >= 1.030 (1.010-1.020); Urobilinogen Urine 0.2 mg/dL (0.2-1.0); pH Urine 5.5 (5.0-8.0)
[2021-09-07 14:57] LABS: INR 1.1; Prothrombin Time 11.7 Seconds (9.50-12.10)
[2021-09-07 15:04] LABS: Lactic Acid Reflex 0.9 mmol/L (0.4-2.0)
[2021-09-07 15:08] LABS: Alanine Aminotransferase 53 U/L (14-59); Albumin Level 3.9 g/dL (3.4-5.0); Alkaline Phosphatase 60 U/L (46-116); Anion Gap 8 mmol/L (8-16); Aspartate Amino Transferase 34 U/L (15-37); Bilirubin,Total 0.9 mg/dL (0.00-1.00); Blood Urea Nitrogen 12 mg/dL (7-18); Calcium 9.4 mg/dL (8.5-10.1); Carbon Dioxide 26 mmol/L (21-32); Chloride 105 mmol/L (98-108); Estimated CRCL calculation 84 ml/min; Estimated Glomerular Filt Rate > 60; Glucose 81 mg/dL (70-99); Lipase 59 U/L (73-393); Osmolality Calculated 286 mOsm/kg (285-295); Potassium 3.6 mmol/L (3.5-5.1); Sodium 139 mmol/L (136-145); Total Protein 7.4 g/dL (6.4-8.2)
[2021-09-07 15:10] LABS: CRP < 0.5 mg/dL (0.0-0.9)
[2021-09-07 15:30] VITALS: BP 99/62; PULSE 80; RESP 20; TEMP 36.6; O2SAT 100
== END 2021-09-07 15:30 | disposition home or self-care (01) ==
PROVIDERS: Emergency Provider Family Medicine; PCP Family Medicine
DX: R10.9 Unspecified abdominal pain (principal)
CPT/HCPCS: 36415; 76705; 80053; 81003; 83605; 83690; 85025; 85610; 86140; 96374; 99283; 99284; J0131

== ENCOUNTER 2021-11-12 16:27 | Outpatient (CLI) | payer BC, SELFPAY ==
[2021-11-12 17:26] LABS: Influenza A QL RT-PCR Negative (Negative); Influenza B QL RT-PCR Negative (Negative); SARS-CoV-2 RNA PCR Negative (Negative)
== END 2021-11-12 16:28 | disposition home or self-care (01) ==
LOC: CHSLAB 16:30
PROVIDERS: PCP Family Medicine; Visit Provider Family Medicine
DX: R05.1 Acute cough (principal); Z20.822 Contact with and (suspected) exposure to COVID-19
CPT/HCPCS: 87502; C9803; U0003; U0005

== ENCOUNTER 2022-04-05 17:03 | Emergency (ER) | payer BC, SELFPAY ==
[2022-04-05 17:10] VITALS: BP 117/87; PULSE 64; RESP 16; TEMP 36.6; O2SAT 99
--- NOTE | 2022-04-05 17:58 | ED.GENADULT ---
HPI - General Adult General Chief complaint: Weakness Stated complaint: confusion/temp 95.6 History of Present Illness HPI narrative: The patient is a 21-year-old woman who presents with generalized weakness and feeling tired, in a fog, with mild confusion over the past 2 hours. She had 3 episodes of watery diarrhea this morning, and occasional nausea today but no vomiting. Mild abdominal discomfort on the right side which is minimal. No fevers chills diaphoresis cough rhinorrhea nasal congestion or chest pain or back pain or dysuria urinary urgency or frequency. She is , last menstrual period is currently. She has had an appendectomy. She also has hepatitis-C and history of anxiety. No COVID symptoms. Related Data Allergies Allergy/AdvReac Type Severity Reaction Status Date / Time No Known Allergies Allergy Verified 04/05/22 17:46 Review of Systems Review of Systems: All systems reviewed & are unremarkable except as noted in HPI and below Constitutional: Constitutional: Reports no additional constitutional complaints, Denies anorexia, Reports body ache(s), Denies chills, Denies excessive sweating, Reports fatigue, Denies fever(s), Denies frequent falls, Denies headache(s), Reports malaise and Denies poor appetite Eyes: Eyes: Reports no additional eye complaints, Denies blurry vision, Denies change in vision, Denies irritation, Denies itchy eyes and Denies photophobia ENT: Reports system reviewed and no additional complaints, except as documented, Reports Normal hearing present, Denies change in voice, Denies dysphagia, Denies vertigo, Denies dizziness, Denies ear discharge, Denies headache(s), Denies hearing loss, Denies hoarseness, Denies nasal congestion, Denies neck pain, Denies sinus pressure, Denies sore throat and Denies throat swelling Cardiovascular: Cardiovascular: Reports no additional cardiovascular complaints, Denies chest pain, Denies syncope, Denies rapid heart rate, Denies irregular heart rhythm, Denies leg edema, Denies dyspnea and Denies slow heart rate Respiratory: Respiratory: Reports no additional respiratory complaints, Denies cough, Denies dyspnea, Denies stridor and Denies wheezing Gastrointestinal: Gastrointestinal: Reports no additional gastrointestinal complaints, Reports abdominal pain, Denies melena, Denies hematochezia, Denies dysphagia, Denies diarrhea, Reports nausea and Denies vomiting Genitourinary: Genitourinary: Denies hematuria, Denies urinary frequency, Denies dysuria, Denies flank pain and Denies urinary urgency Musculoskeletal: Musculoskeletal: Reports no additional musculoskeletal complaints, Denies abnormal gait, Denies back pain, Reports myalgias, Denies arthralgias, Denies joint swelling, Denies limited range of motion, Denies muscle cramps, Denies muscle weakness, Denies neck pain and Denies numbness Integumentary/Breasts: Skin/Breast: Reports system reviewed and no additional complaints, except as docu, Denies breast pain, Denies change in pigmentation, Denies pruritus, Denies erythema and Denies wounds Neurologic: Reports system reviewed and no additional complaints, except as documented, Reports Normal hearing present, Denies Abnormal speech present, Denies abnormal gait, Reports confusion, Denies vertigo, Denies dizziness, Denies syncope, Denies frequent falls, Denies headache(s), Denies focal weakness, Denies numbness and Denies paresthesias Psychiatric: Psychiatric: Reports no additional psychiatric complaints and Denies confusion Endocrine: Endocrine: Reports no additional endocrine complaints, Denies cold intolerance, Denies excessive sweating, Denies fatigue and Denies heat intolerance Hematologic/Lymphatic: Hematologic/Lymphatic: Reports no additional hematologic/lymphatic complaints, Denies easy bleeding and Denies easy bruising Allergic/Immunologic: Allergic/Immunologic: Reports no additional allergic/immunologic complaints, Denies urticaria, Denies itchy eyes, Denies throat swe
[2022-04-05 18:04] LABS: Add Urine Microscopic? YES; Appearance Urine Clear (Clear); Bilirubin Urine Negative (Negative); Blood Urine 3+ (Negative); Color Urine Light Yellow (Yellow); Glucose Urine UA Negative (Negative); Ketones Urine Negative (Negative); Leukocyte Esterase Ur Negative LEU/UL (Negative); Nitrate Urine Negative (Negative); Protein Urine Negative (Negative); Specific Grav Ur <= 1.005 (1.010-1.020); Urobilinogen Urine 0.2 mg/dL (0.2-1.0)
[2022-04-05 18:10] LABS: Pregnancy On Board Control Positive; Urine Pregnancy Test Negative
[2022-04-05 18:30] LABS: Bacteria Urine None seen /hpf; Squamous Epithelial Cell Urine Rare /hpf (Few); WBC Urine 0-3 /hpf (0-3)
[2022-04-05 18:45] LABS: Amphetamine Screen Urine Negative (Negative); Barbiturate Screen Urine Negative (Negative); Benzodiazepines Screen Urine Negative (Negative); Cannabinoid Screen Urine Negative (Negative); Cocaine Screen Urine Negative (Negative); Methadone Screen Urine Negative (Negative); Opiate Screen Urine Negative (Negative); Phencyclidine Screen Urine Negative (Negative)
== END 2022-04-05 17:58 | disposition left against medical advice (07) ==
PROVIDERS: Emergency Provider Emergency Medicine; PCP Family Medicine
DX: R53.1 Weakness (principal)
CPT/HCPCS: 80307; 81001; 81025; 99283

== ENCOUNTER 2022-07-06 16:46 | Emergency (ER) | payer BC, SELFPAY ==
[2022-07-06 16:50] VITALS: BP 132/77; PULSE 100; RESP 18; TEMP 36.6; O2SAT 99
--- NOTE | 2022-07-06 16:53 | ED.DENTAL ---
HPI - Dental/Oral General Chief complaint: Dental/Oral Stated complaint: tooth ache Time Seen by Provider: 07/06/22 16:52 Source: patient and RN notes reviewed Mode of arrival: ambulatory Limitations: no limitations History of Present Illness Complaint: tooth pain Location: Tooth # (13) Onset (ago): minute(s) (20) Duration: constant Severity: moderate Relieving factors: nothing Exacerbating factors: chewing Context: history of dental caries Treatment prior to arrival: oral analgesic (Aleve) Related Data Allergies Allergy/AdvReac Type Severity Reaction Status Date / Time No Known Allergies Allergy Verified 07/06/22 16:53 Review of Systems Review of Systems: All systems reviewed & are unremarkable except as noted in HPI and below Constitutional: Constitutional: Denies chills and Denies fever(s) PMFSH Past Medical History Medical History Hepatitis C Surgical History Surgical History History of appendectomy Social History Social History Smoking status: Light tobacco smoker Tobacco type: cigarettes Alcohol intake: current Alcohol use details: occasional Exam Const: General: healthy appearing, no acute distress and alert Nutritional Appearance: well nourished Orientation/consciousness: patient oriented x3 Limitations: no limitations Other: female nurse in room during examination. HENMT: Head: normal to inspection Ears: external ears normal Face and sinus: normal facial exam Mouth: Yes moist mucous membranes Teeth and gingiva: abnormal tooth and associated gingiva upper left second bicuspid tender and other ( Cavity center of tooth) Throat: posterior oropharynx normal Eyes: Conjunctivae: conjunctivae normal Pupils: Equal, round and reactive pupils present EOM: EOMs intact bilaterally Neck: Neck: normal visual inspection Resp: Effort & Inspection: normal respiratory effort Auscultation: clear to auscultation bilaterally Cardio: Rate: regular rate Rhythm: regular rhythm GI: GI Palp: Yes Soft to palpation and No Tenderness to palpation present (GI) Auscultation: normal bowel sounds Back/Spine/Pelvis: Cervical Spine: cervical ROM normal Thoracic/Lumbar Spine: thoraco-lumbar ROM normal Skin: General skin exam: normal color Rashes: no rashes Neuro: General: patient oriented x3, moves all extremities and no focal motor deficits Speech: normal speech Gait exam (Neuro): Normal gait present Extrem: General: normal to inspection and no clubbing, cyanosis or edema Psych: Mental Status: mental status grossly normal Affect: normal affect Attitude: cooperative Course Vital Signs Vital signs: Vital Signs Temperature 36.6 C 07/06/22 16:50 Pulse Rate 100 07/06/22 16:50 Respiratory Rate 18 07/06/22 16:50 Blood Pressure 132/77 07/06/22 16:50 Pulse Oximetry 99 07/06/22 16:50 Oxygen Delivery Room Air 07/06/22 16:50 Temperature 36.6 C 07/06/22 16:50 Pulse Rate 100 07/06/22 16:50 Respiratory Rate 18 07/06/22 16:50 Blood Pressure 132/77 07/06/22 16:50 Pulse Oximetry 99 07/06/22 16:50 Oxygen Delivery Room Air 07/06/22 16:50 Discharge Plan Discharge Clinical Impression: Pain, dental Patient Disposition: Home, Self-Care Condition: Stable Instructions: Toothache (ED) Additional Instructions: keep your appointment with dentist tomorrow. Get some dental wax and placed that over the opening of the tooth. Do not use any other Advil, Aleve, ibuprofen or Motrin while using nabumetone for pain. Prescriptions: New nabumetone 750 mg tablet 750 mg PO BID 10 Days Qty: 20 0RF Follow-up/Referrals: Jamaal Hodges MD [Primary Care Provider] - Time of Disposition: 17:02
[2022-07-06] MEDS: KETOROLAC 30 MG/ML VIAL (*BKC) IM (17:03)
== END 2022-07-06 17:30 | disposition home or self-care (01) ==
PROVIDERS: Emergency Provider Emergency Medicine; PCP Family Medicine
DX: K08.89 Other specified disorders of teeth and supporting structures (principal)
CPT/HCPCS: 96372; 99283; J1885

== ENCOUNTER 2022-12-27 11:40 | Emergency (ER) | payer BC, SELFPAY ==
[2022-12-27 11:40] VITALS: BP 132/79; PULSE 98; RESP 16; TEMP 36.6; O2SAT 100
--- NOTE | 2022-12-27 12:15 | ED.GENADULT ---
HPI - General Adult General Chief complaint: Upper Respiratory Infection Stated complaint: allergy issues; itchy eyes and nasal congestion Time Seen by Provider: 12/27/22 12:00 History of Present Illness HPI narrative: The patient is a 22 with history of intermittent seasonal allergies. For the last 4 days, she has had exacerbation of her seasonal allergies as characterized by mild swelling of the eyes, itchiness in the face and eyes, with watery eyes, nasal congestion, rhinorrhea. She has tried [id number] remedies such as Claritin, Zyrtec, Benadryl, fix. No relief. No sore throat or cough. No dyspnea. No abdominal pain or nausea or vomiting. No fevers or chills or diaphoresis. No urinary symptoms. Does not believe she is . Related Data Allergies Allergy/AdvReac Type Severity Reaction Status Date / Time No Known Allergies Allergy Verified 12/27/22 11:46 Review of Systems Review of Systems: All systems reviewed & are unremarkable except as noted in HPI and below Constitutional: Constitutional: Reports as per HPI, Reports no additional constitutional complaints, Denies chills, Denies excessive sweating, Denies fatigue, Denies fever(s), Denies headache(s) and Denies weakness Eyes: Eyes: Reports as per HPI, Reports no additional eye complaints, Denies change in vision, Reports irritation, Reports itchy eyes, Denies loss of vision, Reports requires corrective lenses and Denies photophobia ENT: Reports system reviewed and no additional complaints, except as documented, Reports as per HPI, Denies change in voice, Denies dysphagia, Denies vertigo, Denies dizziness, Denies headache(s), Denies hoarseness, Denies lip swelling, Reports nasal congestion, Reports nasal discharge, Denies sore throat, Denies throat swelling and Denies tongue swelling Cardiovascular: Cardiovascular: Reports as per HPI, Reports no additional cardiovascular complaints, Denies chest pain, Denies syncope, Denies rapid heart rate and Denies dyspnea Respiratory: Respiratory: Reports as per HPI, Reports no additional respiratory complaints, Denies chest congestion, Denies cough, Denies dyspnea and Denies wheezing Gastrointestinal: Gastrointestinal: Reports as per HPI, Reports no additional gastrointestinal complaints, Denies abdominal pain, Denies constipation, Denies dysphagia, Denies diarrhea, Denies nausea and Denies vomiting Genitourinary: Genitourinary: Reports as per HPI, Denies hematuria, Denies urinary frequency, Denies dysuria, Denies urinary incontinence and Denies urinary urgency Musculoskeletal: Musculoskeletal: Reports no additional musculoskeletal complaints, Denies back pain, Denies myalgias, Denies arthralgias, Denies joint swelling and Denies numbness Integumentary/Breasts: Skin/Breast: Reports system reviewed and no additional complaints, except as docu, Denies pruritus, Denies erythema, Denies rash and Denies skin ulcer Neurologic: Reports system reviewed and no additional complaints, except as documented, Reports as per HPI, Denies confusion, Denies vertigo, Denies dizziness, Denies syncope, Denies headache(s), Denies focal weakness, Denies numbness and Denies weakness Psychiatric: Psychiatric: Reports as per HPI, Denies anxiety, Denies confusion, Denies depression, Denies homicidal ideation and Denies suicidal ideation Endocrine: Endocrine: Reports no additional endocrine complaints, Denies excessive sweating, Denies fatigue, Denies polydipsia and Denies polyuria Hematologic/Lymphatic: Hematologic/Lymphatic: Reports no additional hematologic/lymphatic complaints, Denies easy bleeding and Denies easy bruising Allergic/Immunologic: Allergic/Immunologic: Reports no additional allergic/immunologic complaints, Denies lip swelling, Denies throat swelling, Denies tongue swelling and Denies wheezing PMFSH Past Medical History Medical History Hepatitis C Surgical History Surgical History (R
[2022-12-27] MEDS: predniSONE 40 MG, predniSONE 10 MG 50 MG PO (12:30)
[2022-12-27] MEDS: LORATADINE 10 MG TABLET 20 MG PO (12:31)
[2022-12-27] MEDS: hydrOXYzine HCL 25 MG TABLET PO (12:32)
[2022-12-27 12:40] LABS: Appearance Urine Clear (Clear); Bilirubin Urine Negative (Negative); Blood Urine Negative (Negative); Color Urine Yellow (Yellow); Glucose Urine UA Negative (Negative); Ketones Urine Negative (Negative); Leukocyte Esterase Ur Trace LEU/UL (Negative); Nitrate Urine Negative (Negative); Protein Urine Negative (Negative); Specific Grav Ur 1.025 (1.010-1.020); Urobilinogen Urine 0.2 mg/dL (0.2-1.0)
[2022-12-27 12:41] LABS: Pregnancy On Board Control Positive; Urine Pregnancy Test Negative
[2022-12-27 12:45] LABS: Add Urine Microscopic? YES; Bacteria Urine 2+ /hpf; Mucus Urine Few /lpf; RBC Urine None seen /hpf (0-2); Squamous Epithelial Cell Urine Moderate /hpf (Few); WBC Urine 0-3 /hpf (0-3)
[2022-12-27 13:08] LABS: Strep Group A RT-PCR NOT DETECTED (Negative)
--- NOTE | 2022-12-27 13:14 | PC.NURSE ---
PT IS LYING ON STRETCHER WITH DAUGHTER AT BEDSIDE. PT DENIES ANY NEEDS OR COMPLAINTS AT THIS TIME. PT IS AWAITING RESULTS. NAD NOTED. WILL CONTINUE TO MONITOR.
[2022-12-27 13:16] LABS: Influenza A QL RT-PCR Negative (Negative); Influenza B QL RT-PCR Negative (Negative); SARS-CoV-2 RNA PCR Negative (Negative)
[2022-12-27 13:20] LABS: RSV RNA, RT-PCR Negative (Negative)
[2022-12-27 13:50] VITALS: BP 138/94; PULSE 97; RESP 16; O2SAT 100
== END 2022-12-27 13:50 | disposition home or self-care (01) ==
PROVIDERS: Emergency Provider Emergency Medicine; PCP Family Medicine
DX: J30.2 Other seasonal allergic rhinitis (principal); F17.210 Nicotine dependence, cigarettes, uncomplicated; Z20.822 Contact with and (suspected) exposure to COVID-19
CPT/HCPCS: 81001; 81025; 87637; 87651; 99283; A9270; J7512

== ENCOUNTER 2023-03-13 14:53 | Emergency (ER) | payer BC, SELFPAY ==
[2023-03-13 14:53] VITALS: BP 111/83; PULSE 99; RESP 16; TEMP 36.5; O2SAT 100
--- NOTE | 2023-03-13 14:57 | ED.URI ---
HPI - URI/Sore Throat General Chief Complaint: Upper Respiratory Infection Stated Complaint: sore throat Time Seen by Provider: 03/13/23 14:56 Source: patient and RN notes reviewed Mode of arrival: ambulatory Limitations: no limitations History of Present Illness MD elicited complaint: cough and sore throat Onset (ago): day(s) (1) Consistency: intermittent Severity: moderate Description of mucous: clear Able to tolerate fluids by mouth: Yes Exacerbating factors: swallowing Relieving factors: nothing Associated symptoms: myalgias, headache and rhinorrhea Treatments prior to arrival: none Related Data Home Medications Medication Instructions Recorded Confirmed No Home Medications 03/13/23 03/13/23 Allergies Allergy/AdvReac Type Severity Reaction Status Date / Time No Known Allergies Allergy Verified 03/13/23 14:57 Review of Systems Review of Systems: All systems reviewed & are unremarkable except as noted in HPI and below PMFSH Past Medical History Medical History Hepatitis C Surgical History Surgical History History of appendectomy Social History Social History (Updated 03/13/23 @ 15:02 by Gabino Santana MD) Smoking status: Current every day smoker Tobacco type: e-cigarettes/vaping Alcohol intake: current Alcohol use details: occasional Substance use type: marijuana Exam Const: General: healthy appearing, no acute distress and alert Nutritional Appearance: well nourished and thin Orientation/consciousness: patient oriented x3 Limitations: no limitations HENMT: Head: normal to inspection Ears: external ears normal Face/Nose/Sinus: Normal external nose present Face and sinus: normal facial exam Mouth: Yes moist mucous membranes Throat: uvula midline and posterior oropharynx abnormal erythema Eyes: Conjunctivae: conjunctivae normal Pupils: Equal, round and reactive pupils present EOM: EOMs intact bilaterally Neck: Neck: normal visual inspection and lymphadenopathy bilateral anterior cervical normal and tender Resp: Effort & Inspection: normal respiratory effort Auscultation: clear to auscultation bilaterally Cardio: Rate: regular rate Rhythm: regular rhythm GI: GI Palp: Yes Soft to palpation and No Tenderness to palpation present (GI) Auscultation: normal bowel sounds Back/Spine/Pelvis: Cervical Spine: cervical ROM normal Thoracic/Lumbar Spine: thoraco-lumbar ROM normal Skin: General skin exam: normal color Rashes: no rashes Neuro: General: patient oriented x3, moves all extremities, no focal motor deficits and CN's II-XI intact bilaterally Speech: normal speech Gait exam (Neuro): Normal gait present Extrem: General: normal to inspection and no clubbing, cyanosis or edema Psych: Mental Status: mental status grossly normal Affect: normal affect Attitude: cooperative MDM - URI/Sore Throat Differential Diagnosis Differential diagnosis: Likely upper respiratory infection, viral infection, influenza, pharyngitis and other (COVID) Lab Data Attestation: I reviewed the patient's lab results. Discharge Plan Discharge Clinical Impression: Upper respiratory infection Qualifiers: URI type: acute nasopharyngitis (common cold) Qualified Code(s): J00 - Acute nasopharyngitis [common cold] Patient Disposition: Home, Self-Care Condition: Stable Instructions: Cold Symptoms (ED) Additional Instructions: use Tylenol and or Motrin as needed for body aches. Can use [id number] cough cold medication as needed. Prescriptions: No Action No Home Medications Follow-up/Referrals: Jamaal Hodges MD [Primary Care Provider] - Time of Disposition: 16:00
[2023-03-13 15:47] LABS: Strep Group A RT-PCR NOT DETECTED (Negative)
[2023-03-13 15:58] LABS: Influenza A QL RT-PCR Negative (Negative); Influenza B QL RT-PCR Negative (Negative); SARS-CoV-2 RNA PCR Negative (Negative)
[2023-03-13 16:06] VITALS: BP 115/65; PULSE 66; RESP 16; TEMP 36.7; O2SAT 99
== END 2023-03-13 16:07 | disposition home or self-care (01) ==
PROVIDERS: Emergency Provider Emergency Medicine; PCP Family Medicine
DX: J00 Acute nasopharyngitis [common cold] (principal); F17.290 Nicotine dependence, other tobacco product, uncomplicated; Z20.822 Contact with and (suspected) exposure to COVID-19
CPT/HCPCS: 87636; 87651; 99283

== ENCOUNTER 2023-07-14 12:19 | Emergency (ER) | payer BC, SELFPAY ==
[2023-07-14 12:22] VITALS: BP 129/75; PULSE 101; RESP 20; TEMP 36.6; O2SAT 100
[2023-07-14 12:42] LABS: Basophils Absolute Auto 0.04 K/mm3 (0.00-0.10); Basophils Percent Auto 0.5 % (0.0-1.0); Bilirubin Urine Negative (Negative); Blood Urine Negative (Negative); Color Urine Light Yellow (Yellow); Eosinophils Absolute Auto 0.13 K/mm3 (0.02-0.50); Eosinophils Percent Auto 1.7 % (1.0-6.0); Glucose Urine UA Negative (Negative); Hematocrit 44.2 % (35.0-49.0); Hemoglobin 14.9 g/dL (12.0-15.0); Immature Granulocyte Absolute 0.02 K/mm3 (0.00-0.00); Immature Granulocyte Percent A 0.3 % (0.0-0.0); Ketones Urine Negative (Negative); Leukocyte Esterase Ur 3+ LEU/UL (Negative); Lymphocytes Percent Auto 19.9 % (18.0-42.0); Mean Corpuscular HGB Conc 33.7 g/dL (32.0-36.0); Mean Corpuscular Hemoglobin 28.8 pg (27.0-31.0); Mean Corpuscular Volume 85.5 fL (78.0-102.0); Mean Platelet Volume 10.5 fl (9.2-11.8); Monocytes Absolute Auto 0.67 K/mm3 (0.10-0.90); Monocytes Percent Auto 8.9 % (2.0-11.0); Neutrophils Absolute Auto 5.2 K/mm3 (1.7-7.2); Neutrophils Percent Auto 68.7 % (50.0-70.0); Nitrate Urine Negative (Negative); Occult Blood Positive (Negative); Platelet Count Result 271 K/mm3 (150-420); Protein Urine Negative (Negative); Red Blood Count 5.17 M/mm3 (4.20-5.40); Red Cell Distribution Width 13.3 % (11.6-14.4); Specific Grav Ur 1.025 (1.010-1.020); Urobilinogen Urine 0.2 mg/dL (0.2-1.0); White Blood Count 7.5 K/mm3 (4.8-10.8)
[2023-07-14 12:47] LABS: Add Urine Microscopic? YES; Appearance Urine Slightly Cloudy (Clear); Bacteria Urine 1+ /hpf; RBC Urine None seen /hpf (0-2); Squamous Epithelial Cell Urine Many /hpf (Few)
[2023-07-14 12:58] LABS: Alanine Aminotransferase 60 U/L (14-59); Albumin Level 3.8 g/dL (3.4-5.0); Alkaline Phosphatase 67 U/L (46-116); Anion Gap 9 mmol/L (8-16); Aspartate Amino Transferase 30 U/L (15-37); Bilirubin,Total 0.9 mg/dL (0.00-1.00); Blood Urea Nitrogen 12 mg/dL (7-18); Calcium 9.3 mg/dL (8.5-10.1); Carbon Dioxide 26 mmol/L (21-32); Chloride 103 mmol/L (98-108); Estimated CRCL calculation 91 ml/min; Estimated Glomerular Filt Rate > 60; Glucose 87 mg/dL (70-99); Osmolality Calculated 284 mOsm/kg (285-295); Sodium 138 mmol/L (136-145)
--- NOTE | 2023-07-14 12:58 | ED.ABDPAIN ---
HPI - Abdominal Pain General Chief Complaint: Abdominal Pain Stated Complaint: rectal bleeding Time Seen by Provider: 07/14/23 12:20 Source: patient Mode of arrival: ambulatory Limitations: no limitations History of Present Illness HPI narrative: this is a 22-year-old female that presents with some blood in her stool states that she has had bright red blood on the toilet paper when she wipes, and having some lower abdominal discomfort suprapubic with pressure and dysuria with no fever chills no flank pain no diarrhea constipation no chest pain or shortness of breath. MD elicited complaint: other ( suprapubic tenderness) Pertinent past history: none Onset (ago): hour(s) Pain Consistency: now resolved Location: suprapubic Severity: mild Quality: fullness Migration to: no migration Exacerbating factors: nothing Associated symptoms: denies other symptoms and hematochezia Related Data Allergies Allergy/AdvReac Type Severity Reaction Status Date / Time No Known Allergies Allergy Verified 03/13/23 14:57 Review of Systems Review of Systems: All systems reviewed & are unremarkable except as noted in HPI and below PMFSH Past Medical History Medical History Hepatitis C Surgical History Surgical History History of appendectomy Social History Social History Smoking status: Current every day smoker Tobacco type: e-cigarettes/vaping Alcohol intake: current Alcohol use details: occasional Substance use type: marijuana Exam Const: General: healthy appearing, no acute distress and alert Nutritional Appearance: well nourished Orientation/consciousness: patient oriented x3 Limitations: no limitations Neck: Neck: normal visual inspection Chest: Chest palpation & inspection: normal inspection of the chest Resp: Effort & Inspection: normal respiratory effort Auscultation: clear to auscultation bilaterally Cardio: Rate: regular rate Rhythm: regular rhythm GI: GI Palp: Yes Soft to palpation and Yes Tenderness to palpation present (GI) ( Suprapubic area) Auscultation: normal bowel sounds : General: Yes Bladder palpation abnormal Back/Spine/Pelvis: Back: no CVA tenderness Skin: General skin exam: normal color Rashes: no rashes Neuro: General: patient oriented x3 Extrem: General: normal to inspection Psych: Mental Status: mental status grossly normal Affect: normal affect Course Course Emergency Course: stool guaiac positive consistent with internal hemorrhoids, with suprapubic tenderness urinalysis shows she has a urinary tract infection, normal white blood cell count. Vital Signs Vital signs: Vital Signs Temperature 36.6 C 07/14/23 12:22 Pulse Rate 101 H 07/14/23 12:22 Respiratory Rate 20 07/14/23 12:22 Blood Pressure 129/75 07/14/23 12:22 Pulse Oximetry 100 07/14/23 12:22 Temperature 36.6 C 07/14/23 12:22 Pulse Rate 101 H 07/14/23 12:22 Respiratory Rate 20 07/14/23 12:22 Blood Pressure 129/75 07/14/23 12:22 Pulse Oximetry 100 07/14/23 12:22 MDM - Abdominal Pain Lab Data 07/14/23 12:38 07/14/23 12:38 Labs: Lab Results 07/14/23 Range/Units 12:38 WBC 7.5 (4.8-10.8) K/mm3 RBC 5.17 (4.20-5.40) M/mm3 Hgb 14.9 (12.0-15.0) g/dL Hct 44.2 (35.0-49.0) % MCV 85.5 (78.0-102.0) fL MCH 28.8 (27.0-31.0) pg MCHC 33.7 (32.0-36.0) g/dL RDW 13.3 (11.6-14.4) % Plt Count 271 (150-420) K/mm3 MPV 10.5 (9.2-11.8) fl Immature Gran % (Auto) 0.3 H (0.0-0.0) % Neut % (Auto) 68.7 (50.0-70.0) % Lymph % (Auto) 19.9 (18.0-42.0) % Elliott % (Auto) 8.9 (2.0-11.0) % Eos % (Auto) 1.7 (1.0-6.0) % Baso % (Auto) 0.5 (0.0-1.0) % Lymph # (Auto) 1.50 (1.10-4.50) K/mm3 Elliott # (Auto) 0.67 (0.10-0.90) K/mm3 Eos # (Auto) 0.13 (
[2023-07-14 13:14] VITALS: BP 115/81; PULSE 104; RESP 20; TEMP 36.6; O2SAT 100
--- NOTE | 2023-07-14 13:16 | PC.NURSE ---
On 07/14/23, the student, [patsy morgan ], provided care and completed [facility] documentation on this patient. I have reviewed the student's documentation and agree with the findings.
--- NOTE | 2023-07-16 14:27 | PC.NURSE ---
final urine culture reviewed. mixed genital diamante isolated. these superficial bacteria are not indicative of a UTI . no change in plan of care.
== END 2023-07-14 13:20 | disposition home or self-care (01) ==
PROVIDERS: Emergency Provider Emergency Medicine
DX: K64.0 First degree hemorrhoids (principal); N30.00 Acute cystitis without hematuria; F17.290 Nicotine dependence, other tobacco product, uncomplicated
CPT/HCPCS: 36415; 80053; 81001; 82272; 85025; 87086; 87088; 99283

== ENCOUNTER 2023-09-25 15:25 | Emergency (ER) | payer BC, SELFPAY ==
--- NOTE | ~2023-09-25 | XR_ITS ---
Right Hand Technique: PA, oblique, and lateral views were obtained. Clinical History: Pain Findings: No acute fracture or dislocation is seen. Osseous alignment is anatomic. Joint spaces are p reserved. Soft tissues are unremarkable. Impression: Unremarkable right hand. Reviewed, dictated and finalized at location M. ING WHEEL INSPECTOR Impression: Unremarkable right hand.
[2023-09-25 15:25] VITALS: BP 134/95; PULSE 115; RESP 18; TEMP 36.7; O2SAT 100
[2023-09-25] MEDS: KETOROLAC (*BKC) 60 MG/2 ML VIAL IM (15:47)
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
[2023-09-25 16:18] VITALS: PULSE 102; RESP 16; O2SAT 100
[2023-09-25 16:30] VITALS: BP 119/65; PULSE 64; RESP 16; TEMP 36.2; O2SAT 98
== END 2023-09-25 16:34 | disposition home or self-care (01) ==
LOC: CHSED 16:11
PROVIDERS: Emergency Provider Family Medicine; PCP Family Medicine
DX: S63.601A Unspecified sprain of right thumb, initial encounter (principal); F17.290 Nicotine dependence, other tobacco product, uncomplicated; Y04.0XXA Assault by unarmed brawl or fight, initial encounter
CPT/HCPCS: 29125; 73130; 96372; 99283; J1885

== ENCOUNTER 2024-03-02 14:48 | Outpatient (CLI) | payer BC, SELFPAY ==
[2024-03-05 07:51] LABS: Trichomonas Vag PCR NOT DETECTED (NOT DETECTE)
[2024-03-05 08:14] LABS: Chlamydia trachomatis NOT DETECTED (NOT DETECTE); Neisseria gonorrhoeae PCR NOT DETECTED (NOT DETECTE)
== END 2024-03-02 14:49 | disposition home or self-care (01) ==
LOC: CHSLAB 14:50
PROVIDERS: PCP Family Medicine; Visit Provider Nurse Practitioner Family
DX: Z72.51 High risk heterosexual behavior (principal)
CPT/HCPCS: 87491; 87591; 87661

== ENCOUNTER 2024-04-21 13:10 | Emergency (ER) | payer BC, SELFPAY ==
[2024-04-21 13:10] VITALS: BP 130/91; PULSE 107; RESP 20; TEMP 36.5; O2SAT 100
--- NOTE | 2024-04-21 13:16 | ED.GENADULT ---
HPI - General Adult General Chief complaint: Unspecified Stated complaint: INSECT STING Source: patient Mode of arrival: ambulatory History of Present Illness HPI narrative: bee sting to left hand 1 hour prior to arrival to the emergency room. Comparing of slight soreness and redness around the sting, with numbness of 2 fingers. She denies difficulty breathing or swallowing or shortness of breath or any rash. She denied any history of anaphylactic shock in the past. Related Data Home Medications Medication Instructions Recorded Confirmed medroxyprogesterone 150 mg/mL 150 mg IM MONTHLY 09/25/23 04/21/24 intramuscular syringe Allergies Allergy/AdvReac Type Severity Reaction Status Date / Time No Known Allergies Allergy Verified 04/21/24 13:15 Review of Systems Review of Systems: All systems reviewed & are unremarkable except as noted in HPI and below PMFSH Past Medical History Medical History Hepatitis C Surgical History Surgical History History of appendectomy Social History Social History Smoking status: Current every day smoker Tobacco type: e-cigarettes/vaping Alcohol intake: current Alcohol use details: occasional Substance use type: marijuana Exam Narrative: General appearance: Well-developed, well-nourished Skin: Normal color Eyes: Clear conjunctiva ENT: Oropharynx normal, ears normal, nose normal Neck: Supple, nontender Chest and respiratory: Airway patent, no respiratory distress, no accessory muscle use Heart: Regular rate/rhythm Abdomen: Soft, nontender, no organomegaly, quiet bowel sounds Vascular: Normal peripheral pulses, normal capillary refill. 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 Keep left hand elevated Topical cortisone cream [id number] as needed Prescriptions: New prednisone 20 mg tablet 40 mg PO BID Qty: 6 0RF Zyrtec 10 mg capsule 10 mg PO BID PRN (Reason: allergy symptoms) Qty: 10 0RF No Action medroxyprogesterone 150 mg/mL syringe 150 mg IM MONTHLY Follow-up/Referrals: Jamaal Hodges MD [Primary Care Provider] -
[2024-04-21] MEDS: diphenhydrAMINE HCl CAP 25 MG CAPSULE PO (13:27)
[2024-04-21] MEDS: predniSONE 20 MG TABLET 60 MG PO (13:27)
== END 2024-04-21 13:37 | disposition home or self-care (01) ==
PROVIDERS: Emergency Provider Emergency Medicine; PCP Family Medicine
DX: T63.441A Toxic effect of venom of bees, accidental (unintentional), initial encounter (principal); R20.0 Anesthesia of skin
CPT/HCPCS: 99283; A9270; J7512

== ENCOUNTER 2024-07-31 12:56 | Emergency (ER) | payer BC, SELFPAY ==
[2024-07-31 12:56] VITALS: BP 132/91; PULSE 112; RESP 20; TEMP 35.9; O2SAT 100
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
[2024-07-31 13:10] LABS: Appearance Urine Cloudy (Clear); Bilirubin Urine 1+ (Negative); Blood Urine 3+ (Negative); Glucose Urine UA Negative (Negative); Ketones Urine Trace (Negative); Leukocyte Esterase Ur 1+ (Negative); Nitrate Urine Positive (Negative); Protein Urine 3+ (Negative); Specific Grav Ur 1.025 (1.010-1.020); pH Urine 6.5 (5.0-8.0)
[2024-07-31 13:22] LABS: Add Urine Microscopic? YES; Bacteria Urine 1+ /hpf; Color Urine Dark Red (Yellow); RBC Urine >100 /hpf (0-2); Squamous Epithelial Cell Urine Moderate /hpf (Few)
[2024-07-31 13:31] LABS: Hematocrit 39.5 % (35.0-49.0); Mean Corpuscular HGB Conc 35.4 g/dL (32-36); Mean Corpuscular Volume 87.4 fL (78.0-102.0); Mean Platelet Volume 10.1 fl (9.2-11.8); Platelet Count Result 260 K/mm3 (150-420); Red Blood Count 4.52 M/mm3 (4.20-5.40); Red Cell Distribution Width 12.5 % (11.6-14.4); White Blood Count 7.8 K/mm3 (4.8-10.8)
[2024-07-31 13:39] LABS: Anion Gap 9 mmol/L (4-12); Blood Urea Nitrogen 10 mg/dL (7-18); Calcium 9.2 mg/dL (8.5-10.1); Carbon Dioxide 28 mmol/L (21-32); Chloride 102 mmol/L (98-108); Estimated CRCL calculation 74 ml/min; Estimated Glomerular Filt Rate > 60; Glucose 111 mg/dL (70-99); Osmolality Calculated 288 mOsm/kg (285-295); Potassium 3.8 mmol/L (3.5-5.1); Sodium 139 mmol/L (136-145)
[2024-07-31 14:00] VITALS: BP 126/82; PULSE 105; RESP 16; O2SAT 99
[2024-07-31 14:24] VITALS: BP 126/82; PULSE 105; RESP 16; TEMP 36.4; O2SAT 99
--- NOTE | 2024-08-02 12:36 | PC.NURSE ---
final urine culture reviewed. mixed genital diamante isolated. not indicative of a uti. no change in plan of care.
== END 2024-07-31 14:24 | disposition home or self-care (01) ==
PROVIDERS: Emergency Provider Emergency Medicine; PCP Family Medicine
DX: N39.0 Urinary tract infection, site not specified (principal)
CPT/HCPCS: 36415; 80048; 81001; 84702; 85027; 87086; 99283

== ENCOUNTER 2024-09-08 16:19 | Emergency (ER) | payer BC, SELFPAY ==
--- NOTE | 2024-09-08 16:32 | ED.PREGNANCY ---
HPI - General Chief complaint: Vaginal Bleeding Stated complaint: ; cramping and spotting Time Seen by Provider: 09/08/24 16:32 Source: patient Mode of arrival: ambulatory Limitations: no limitations History of Present Illness HPI Narrative: patient is a 23-year-old female with left lower quadrant cramping and vaginal bleeding in 1st trimester. She is not definite about how many weeks but she said she is definitely first-trimester only at this time. She is having light bleeding to medium bleeding with 2 pads used today. There is some tissue/ clots per her information. Otherwise she feels normal at this time. Complaint: other ( Left lower pelvic cramping) Onset (ago): day(s) (1) Pain Consistency: intermittent Location: pelvis ( left side) Severity: mild Severity scale (1-10): 2 Quality: Cramping Radiation: pelvis Relieving factors: none Exacerbating factors: none Associated symptoms: vaginal bleeding Vaginal discharge: none Vaginal bleeding: light and clots Hx Last Menstrual Period: see nurse's notes for last menstrual period date Patient : Yes Number of Weeks : OB History - Current : no complications OB History - Previous Pregnancies: no complications care: none Related Data Allergies Allergy/AdvReac Type Severity Reaction Status Date / Time No Known Allergies Allergy Verified 09/08/24 16:30 Review of Systems Review of Systems: All systems reviewed & are unremarkable except as noted in HPI and below Constitutional: Constitutional: Reports no additional constitutional complaints Eyes: Eyes: Reports no additional eye complaints ENT: Reports system reviewed and no additional complaints, except as documented Cardiovascular: Cardiovascular: Reports no additional cardiovascular complaints Respiratory: Respiratory: Reports no additional respiratory complaints Gastrointestinal: Gastrointestinal: Reports no additional gastrointestinal complaints Genitourinary: Genitourinary: Reports no additional female genitourinary complaints Musculoskeletal: Musculoskeletal: Reports no additional musculoskeletal complaints Integumentary/Breasts: Skin/Breast: Reports system reviewed and no additional complaints, except as docu Neurologic: Reports system reviewed and no additional complaints, except as documented Psychiatric: Psychiatric: Reports no additional psychiatric complaints Endocrine: Endocrine: Reports no additional endocrine complaints Hematologic/Lymphatic: Hematologic/Lymphatic: Reports no additional hematologic/lymphatic complaints Allergic/Immunologic: Allergic/Immunologic: Reports no additional allergic/immunologic complaints PMFSH Past Medical History Medical History Hepatitis C Surgical History Surgical History History of appendectomy Social History Social History Smoking status: Current every day smoker Tobacco type: e-cigarettes/vaping Alcohol intake: current Alcohol use details: occasional Substance use type: marijuana Exam Const: General: healthy appearing Nutritional Appearance: well nourished Orientation/consciousness: patient oriented x3 Limitations: no limitations HENMT: Head: normal to inspection Ears: external ears normal Face/Nose/Sinus: Normal external nose present Eyes: Conjunctivae: conjunctivae normal Pupils: Equal, round and reactive pupils present EOM: EOMs intact bilaterally Neck: Neck: normal visual inspection Chest: Chest palpation & inspection: normal inspection of the chest Resp: Effort & Inspection: normal respiratory effort and not labored Auscultation: clear to auscultation bilaterally and no crackles Cardio: Rate: regular rate Rhythm: regular rhythm Heart sounds: no murmurs GI: Inspection: non-distended GI Palp: Yes Soft to palpation and No Tenderness to palpation present (GI) Auscultation: normal bowel sounds : General: Yes bladder normal to palpation Back/Spine/Pelvis: Back: no CVA tenderness Skin: General skin exam: normal color Rashes: no rashes Wounds: no wounds Neuro: General: patient oriented x3 Cranial nerves: Yes Nystagmus not present Speech: normal speech Gait exam (Neuro): Normal gait present Extrem: General: normal to inspection Psych: Mental Status: mental status grossly normal Affect: normal affect Attitude: cooperative Course Vital Signs Vital signs: Vital Signs Pulse Rate 99 09/08/24 17:31 Respiratory Rate 18 09/08/24 17:31 Blood Pressure 112/67 09/08/24 17:31 Pulse Oximetry 99 09/08/24 17:31 Oxygen Delivery Room Air 09/08/24 17:31 Pulse Rate 99 09/08/24 17:31 Respiratory Rate 18 09/08/24 17:31 Blood Pressure 112/67 09/08/24 17:31 Pulse Oximetry 99 09/08/24 17:31 Oxygen Delivery Room Air 09/08/24 17:31 MDM - OB/Uterine Contractions MDM Narrative Medical decision making narrative: patient is a 23-year-old female with left lower quadrant pelvic discomfort and cramping as well as vaginal bleeding in 1st trimester. I explained to the patient we cannot get an ultrasound at this time and it does not appear that she has ectopic concerns nor does her examination correlate with ectopic concerns. We will do workup at this time. Lab Data Attestation: I reviewed the patient's lab results. 09/08/24 16:56 09/08/24 16:56 Labs: Lab Results 09/08/24 Range/Units 16:56 WBC 12.0 H (4.8-10.8) K/mm3 RBC 4.85 (4.20-5.40) M/mm3 Hgb 14.8 (12.0-15.0) g/dL Hct 41.7 (35.0-49.0) % MCV 86.0 (78.0-102.0) fL MCH 30.5 (27.0-31.0) pg MCHC 35.5 (32-36) g/dL RDW 12.2 (11.6-14.4) % Plt Count 304 (150-420) K/mm3 MPV 10.2 (9.2-11.8) fl Immature Gran % (Auto) 0.5 H (0.0-0.0) % Neut % (Auto) 78.4 H (50.0-70.0) % Lymph % (Auto) 13.9 L (18.0-42.0) % [place] % (Auto) 6.2 (2.0-11.0) % Eos % (Auto) 0.3 L (1.0-6.0) % Baso % (Auto) 0.7 (0.0-1.0) % Lymph # (Auto) 1.67 (1.10-4.50) K/mm3 [place] # (Auto) 0.74 (0.10-0.90) K/mm3 Eos # (Auto) 0.04 (0.02-0.50) K/mm3 Baso # (Auto) 0.08 (0.00-0.10) K/mm3 Abs Immat Gran (auto) 0.06 H (0.00-0.00) K/mm3 Absolute Neuts (auto) 9.40 H (1.70-7.20) K/mm3 Absolute Nucleated RBC 0.00 (0.00-0.00) K/mm3 Nucleated RBC % 0.0 (0-0.0) % PT 11.1 (9.50-12.1) Seconds INR 1.0 APTT 26.8 (23.9-30.70) Sec Sodium 137 (136-145) mmol/L Potassium 3.7 (3.5-5.1) mmol/L Chloride 100 (98-108) mmol/L Carbon Dioxide 27 (21-32) mmol/L Anion Gap 10 (4-12) mmol/L BUN 9 (7-18) mg/dL Creatinine 0.82 (0.55-1.02) mg/dL Estim Creat Clear Calc Not Reportable Estimated GFR > 60 (59 - ) Glucose 89 (70-99) mg/dL Calculated Osmolality 281 L (285-295) mOsm/kg Calcium 9.8 (8.5-10.1) mg/dL Total Bilirubin 0.6 (0.00-1.00) mg/dL AST 21 (15-37) U/L ALT 29 (14-59) U/L Alkaline Phosphatase 72 (46-116) U/L Total Protein 8.2 (6.4-8.2) g/dL Albumin 4.2 (3.4-5.0) g/dL Beta HCG, Quant 5708.00 H (0-6) mIU/mL Urine Color Yellow (Yellow) Urine Appearance Cloudy A (Clear) Urine pH 6.0 (5.0-8.0) Ur Specific [place] 1.025 H (1.010-1.020) Urine Protein Trace H (Negative) Urine Glucose (UA) Negative (Negative) Urine Ketones Trace H (Negative) Ur Blood (Man) 2+ H (Negative) Urine Nitrate Negative (Negative) Urine Bilirubin 1+ H (Negative) Urine Urobilinogen 4.0 H (0.2-1.0) mg/dL Leukocyte Esterase Rfl 1+ H (Negative) MOHIT/UL Urine RBC 6-10 H (0-2) /hpf Urine WBC 4-6 H (0-3) /hpf Ur Squamous Epith Cells Many H (Few) /hpf Urine Bacteria 1+ H (None) /hpf Urine Mucus Heavy H /lpf Discharge Plan Discharge Clinical Impression: First trimester bleeding UTI (urinary tract infection) during Qualifiers: Trimester: first trimester Qualified Code(s): O23.41 - Unspecified infection of urinary tract in , first trimester Patient Disposition: Home, Self-Care Condition: Stable Instructions: Antibiotic Form, Threatened Miscarriage (ED), Urinary Tract Infection in (ED) Patient Language: Sen[place]e Prescriptions: New cephalexin 500 mg capsule 500 mg PO BID 7 Days Qty: 14 0RF Follow-up/Referrals: Jamaal Hodges MD [Primary Care Provider] - Time of Disposition: 18:55
[2024-09-08 17:19] LABS: Basophils Absolute Auto 0.08 K/mm3 (0.00-0.10); Basophils Percent Auto 0.7 % (0.0-1.0); Eosinophils Absolute Auto 0.04 K/mm3 (0.02-0.50); Eosinophils Percent Auto 0.3 % (1.0-6.0); Hematocrit 41.7 % (35.0-49.0); Hemoglobin 14.8 g/dL (12.0-15.0); Immature Granulocyte Absolute 0.06 K/mm3 (0.00-0.00); Immature Granulocyte Percent A 0.5 % (0.0-0.0); Lymphocytes Absolute Auto 1.67 K/mm3 (1.10-4.50); Lymphocytes Percent Auto 13.9 % (18.0-42.0); Mean Corpuscular HGB Conc 35.5 g/dL (32-36); Mean Corpuscular Hemoglobin 30.5 pg (27.0-31.0); Mean Platelet Volume 10.2 fl (9.2-11.8); Monocytes Absolute Auto 0.74 K/mm3 (0.10-0.90); Monocytes Percent Auto 6.2 % (2.0-11.0); Neutrophils Percent Auto 78.4 % (50.0-70.0); Platelet Count Result 304 K/mm3 (150-420); Red Blood Count 4.85 M/mm3 (4.20-5.40); Red Cell Distribution Width 12.2 % (11.6-14.4)
[2024-09-08 17:29] LABS: Add Urine Microscopic? YES; Bilirubin Urine 1+ (Negative); Blood Urine 2+ (Negative); Color Urine Yellow (Yellow); Glucose Urine UA Negative (Negative); Ketones Urine Trace (Negative); Leukocyte Esterase Ur 1+ LEU/UL (Negative); Nitrate Urine Negative (Negative); Protein Urine Trace (Negative); Specific Grav Ur 1.025 (1.010-1.020)
[2024-09-08 17:31] VITALS: BP 112/67; PULSE 99; RESP 18; O2SAT 99
[2024-09-08 17:33] LABS: Partial Thromboplastin Time 26.8 Sec (23.9-30.70); Prothrombin Time 11.1 Seconds (9.50-12.1)
[2024-09-08 18:05] LABS: Alanine Aminotransferase 29 U/L (14-59); Albumin Level 4.2 g/dL (3.4-5.0); Alkaline Phosphatase 72 U/L (46-116); Anion Gap 10 mmol/L (4-12); Aspartate Amino Transferase 21 U/L (15-37); Bilirubin,Total 0.6 mg/dL (0.00-1.00); Blood Urea Nitrogen 9 mg/dL (7-18); Calcium 9.8 mg/dL (8.5-10.1); Carbon Dioxide 27 mmol/L (21-32); Chloride 100 mmol/L (98-108); Estimated Glomerular Filt Rate > 60; Glucose 89 mg/dL (70-99); Osmolality Calculated 281 mOsm/kg (285-295); Potassium 3.7 mmol/L (3.5-5.1); Sodium 137 mmol/L (136-145); Total Protein 8.2 g/dL (6.4-8.2)
[2024-09-08 18:32] LABS: Appearance Urine Cloudy (Clear); Bacteria Urine 1+ /hpf; Squamous Epithelial Cell Urine Many /hpf (Few)
[2024-09-08 18:33] LABS: Mucus Urine Heavy /lpf
[2024-09-08 19:00] VITALS: BP 127/66; PULSE 67; RESP 16; TEMP 37; O2SAT 100
[2024-09-08] MEDS: CEPHALEXIN 500 MG CAPSULE PO (19:02)
== END 2024-09-08 19:07 | disposition home or self-care (01) ==
PROVIDERS: Emergency Provider Emergency Medicine; PCP Family Medicine
DX: O23.41 Unspecified infection of urinary tract in pregnancy, first trimester (principal); N39.0 Urinary tract infection, site not specified; O20.9 Hemorrhage in early pregnancy, unspecified; O99.331 Smoking (tobacco) complicating pregnancy, first trimester; F17.290 Nicotine dependence, other tobacco product, uncomplicated; O99.321 Drug use complicating pregnancy, first trimester; F12.90 Cannabis use, unspecified, uncomplicated; Z3A.00 Weeks of gestation of pregnancy not specified
CPT/HCPCS: 36415; 80053; 81001; 84702; 85025; 85610; 85730; 87086; 99283; A9270

== ENCOUNTER 2024-09-09 17:19 | Emergency (ER) | payer BC, SELFPAY ==
[2024-09-09 17:20] VITALS: BP 141/84; PULSE 751; RESP 16; TEMP 36.3; O2SAT 100
--- NOTE | 2024-09-09 19:10 | PC.NURSE ---
Patient approached triage desk asking for wait time. This RN told patient we are not allowed to give out wait times as they can change any minute. Pt stated she has been waiting for over and hour so she wanted to leave. This RN advised pt to be seen at nearest ED if she feels necessary to be.
--- OUTSIDE RECORDS SUMMARY | 2024-09-16 21:14 | XMS_ITS | Data Portability ---
Author Organization [facility] MEHRANYosef Fonseca Address [address] [place] [address] Assessment No assessment recorded. Plan of Treatment Reminders Order Date Submit Date Provider Last Modified By Organization Details Last Modified Time Details Appointments None record ed. Lab None record ed. Referral None record ed. Procedures None record ed. Surgeries None record ed. Imaging None record ed. Medication Orders None record ed. Patient TargetsNo targets recorded. Patient InstructionsNo instructions recorded. Reason for Referral None Reported. Problems No Known Problems Procedures Surgical History Date Name Laterality Status Provider Name and Address Organization Details Recorded Time Appendectomy completed EVELIA Raymundo [facility] 03/20/2024 14:03:32 Imaging Results None recorded. Procedure Notes None recorded. Medical Equipment None Reported. Allergies No known drug allergies Medications Name Sig Start Date Stop Date Status Note LastModified by Organization Details LastModified Time fluconazole 100 mg tablet 03/20 completed Not Available Not Available Not Available metronidazole 0.75 % (37.5 mg/5 gram) vaginal gel 03/20 completed Not Available Not Available Not Available medroxyprogester one 150 mg/mL intramuscular syringe 03/20 completed Not Available Not Available Not Available nitrofurantoin monohydrate/macr ocrystals 100 mg capsule 03/20 completed Not Available Not Available Not Available Vitals Date Recorded Body height Body mass index (BMI) Body weight Systolic blood pressure Diastolic blood pressure Provider Name and Address Organization Details Last Updated DateTime 03/20/2024 165.1 cm 21.1 kg/m2 21750.23 g 141 mm[Hg] 84 mm[Hg] EVELIA Trevizo [facility] 13:59:16 Social History Question Answer Notes LastModified by Organizat ion Details LastModified Time Tobacco Smoking Status Former Smoker Bruna Knox, [place], [place] 03/20/2024 14:03:09 What Is Your Level Of Alcohol Consumption? Moderate Information not available 03/20/2024 Do You Or Have You Ever Used E-cigarettes Or Vape? Current User Of Electronic Cigarettes Information not available 03/20/2024 What Was The Date Of Your Most Recent Tobacco Screening? 03/20/2024 Information not available 03/20/2024 What Is Your Relationship Status? Single Information not available 03/20/2024 Are You Sexually Active? Yes Information not available 03/20/2024 Do You Use Any Illicit Or Recreational Drugs? Yes Information not available 03/20/2024 Has Tobacco Cessation Counseling Been Provided? No Information not available 03/20/2024 Do You Or Have You Ever Used Any Other Forms Of Tobacco Or Nicotine? Yes Information not available 03/20/2024 Sex: Female Functional Status None recorded. Mental Status None recorded. Family History Relationship Description Onset Age of this Age Resolved Age Notes LastModified by Organization Details LastModified Time Father No current problems or disability [email or web address] Not available 05/2024 14:02:23 Mother No current problems or disability [email or web address] Not available 05/2024 14:02:23 Medical History Condition Response Anemia Y Anxiety Disorder Y Hepatitis Y Gynecological History Statement/Question Response Flow Moderate Date of LMP 03/16/2024 On BCP's at Conception? N Menses Monthly Y STIs/STDs N Date of Last Pap Smear Duration of Flow (days) 7 Current Control Method None LMP Approximate Obstetrics History GPAL:G 1 P 0 1 0 1 Type Value Premature 1 Living 1 Total 1 Past Encounters Encounter ID Performer Location Encounter Start Date Encounter Closed Date Diagnosis/Indication Diagnosis SNOMED-CT Code Diagnosis ICD10 Code [id number] TREVON Oliva 14 OB [address] [place] [address] 03/20/2024 13:50:13 03/21/2024 09:28:36 Contraception care management 708359283 Z30.9 Health Concerns Section Related Observation LastModified by Organization Detai ls LastModified Time None Recorded Concern Status LastModified by Organization Details LastModified Time None Recorded Advance Directives Directive None Recorded Payers Encounter Date Sequence Insurance Name Policy Number Policy Thomas Covered Member ID Thomas Member ID Guarantor Name 03/20/2024 1 [facility] (MEDICAID REPLACEMENT - HMO) [id number] Annie Naranjo [id number] Annieyoli Naranjo Notes Date Note Type Note Provider Name and Address Organization Details Recorded Time 03/20/2024 text/html Annual GYNReport ed bypatient.History:n o gynecologic complaints Menstrual cycle:Normal menses Urinary symptoms:No hematuria; No incontinence Vulva:No genital lesion Vagina:Normal vaginal discharge Breast:No breast pain; No breast lump; No nipple discharge Current Contraception:Wants to discuss contraceptive options Sexual complaints:No sexual complaints; No pain during intercourse; Normal libido Menopausal Symptoms:No menopausal symptoms; Normal vaginal lubrication Psychological symptoms:No depression; No anxiety; No PMDD Preventive measures:Encourage self breast examination; Encourage regular exercise; Encourage no tobacco use 23 yo here for control consult- pt states she has taken plan b numerous times this summer, cycles are now irregular and she would like to have mirena- states normal pap in [place] done last year, will obtain records- no other complaints or concerns ROVERTO Oliva Attn: [address]ing[address] [place], [address], [facility] 03/20/2024 15:05:20 OBGyn Episode Ob Episode Information Episode Created Date Number of Fetuses Patient Bloodtype Patient rh Status Prepregnancy Weight lbs Domestic Partner Domestic Partner Phone Father Name 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 Status 03/20/20 24 1 CLOSED Fetus Data First Name Last Name Admitted to NICU Weight (g) Sex Living Outcome Pediatric Complications Fetus ID Race Codes Race Delivery Type [id number] [place] [id number] Vaginal Julia Calculation JULIA Calculation Method Initial Julia Date Initial Exam Date Initial Exam Provider Initial Ultrasound Date Last Menstrual Period Date Ultra Sound Weeks Gestation Conception by IVF Embryo Age at Transfer Date of Transfer 0 Eighteen To Twenty Week Julia Update Ultra Sound Date Fundal Height At Umbil Quickening Date Ultra Sound Latest Weeks Gestation Final Julia Confirmed By Final Julia Confirmed Date Final Julia Date Ultra Sound Latest Days Gestation 0 0 Menstrual History Last Menstrual Date Menses Monthly On Bcp Conception Prior Menses Frequency Hcg Plus Date Menarche Onset Age Delivery Information Delivery Date Delivery Type Labor Anesthesia Weeks Gestation Incision Type Labor Labor Length Hrs Delivered By Post Complications Tubal Sterilization Discharge Date Comments 0 36 [place] Discharge Information Feeding Method Contraceptive Method Maternal HG B and HCT Levels
--- OUTSIDE RECORDS SUMMARY | 2024-09-16 21:14 | XMS_ITS | Clinical Summary ---
Author Organization [facility] Address [address] [place] [address]. 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 Gender Identity Not on file Sexual Orientation Not on file Plan of Treatment Health Maintenance Due Date Last Done Comments Cervical Cancer Screening Pa p Smear (Age 21 to 29) Every 3 Years 1998 Cervical Cancer Screening 1998 Annual Physical 2001 Pneumococcal Vaccine: Pediat rics (0 to 5 Years) and At-Risk Patients (6 to 64 Years) (1 of 2 - PCV) 2004 HPV Vaccines (1 - 3-dose series) 2013 DTaP, Tdap and Td Vaccines ( 1 - Tdap) 2017 Hepatitis B Vaccines (1 of 3 - 19+ 3-dose series) 2017 COVID-19 Vaccine ( - 2023-2 5 season) 2024 Influenza Adult (#1) 2024 Hepatitis C Completed 08/07/2024 Meningococcal Vaccine Aged Out No martha rajesh eligible based on patient's age to complete this topic RSV Immunizations Under 20 Months Aged Out No longer eligible based on patient's age to complete this topic Insurance [facility] Care Teams Water Resource Project Manager Relationship Specialty Start Date End Date Jamaal Hodges MD [address] [place] [address] PCP - General FAMILY PRACTICE 08/29/24
== END 2024-09-09 19:48 | disposition left against medical advice (07) ==
PROVIDERS: PCP Family Medicine
DX: O03.4 Incomplete spontaneous abortion without complication (principal)
CPT/HCPCS: 99199

== ENCOUNTER 2024-09-10 11:22 | Emergency (ER) | payer BC, SELFPAY ==
--- NOTE | ~2024-09-10 | US_ITS ---
EXAMINATION: US transvaginal DATE: 09/10/2024 12:35 INDICATION: Cramping and bleeding during first trimester . TECHNIQUE: Multiple endovaginal sonographic images of the pelvis were obtained. COMPARISON: None. FINDINGS: The uterus measures 9.0 x 4.0 x 4.7 cm. The endometrial complex measures 10 mm in thickness with het erogeneous echogenicity. No intrauterine gestational sac. The right ovary measures 3.0 x 2.2 x 1.5 cm . The left ovary measures 2.6 x 1.7 x 2.1 cm. [place] identified in both ovaries on color Doppler. N o abnormal masses or evident ectopic in the bilateral adnexal regions. There is no free flu id in the pelvis. IMPRESSION: 1. No intrauterine gestational sac for which differential would include early, failed or ectopic preg chelo. Recommend follow-up with serial beta-hCG levels and repeat imaging as clinically indicated. Reviewed, dictated and finalized at location B. NERY OPERATOR IMPRESSION: 1. No intrauterine gestational sac for which differential would include early, failed or ectopic . Recommend follow-up with serial beta-hCG levels an d repeat imaging as clinically indicated.
[2024-09-10 11:24] VITALS: BP 128/99; PULSE 106; RESP 20; TEMP 36.7; O2SAT 99
--- NOTE | 2024-09-10 11:38 | ED_ITS ---
HPI - Female Genitourinary General Chief complaint: Vaginal Bleeding Stated complaint: threatened miscarriage Time Seen by Provider: 09/10/24 11:34 Source: patient Mode of arrival: ambulatory Limitations: no limitations History of Present Illness HPI Narrative: Patient is a 23-year-old female with large clot with tissue from the vagina yesterday. She went to another facility but the wait was too long. She came back today for evaluation and hopefully an ultrasound for reassurance. She is under the assumption she had a miscarriage. I saw this patient 2 days ago and she had beta level checked and we did not do ultrasound due to weekend. She came back as instructed if any changes. She is being treated for UTI as well. MD elicited complaint: UTI , vaginal bleeding ( since her visit 2 days ago she had large clots/tissue passage) and pelvic pain ( Left side pain is not worse in degrees of pain) Onset (ago): day(s) (3) Location of symptoms: LLQ and pelvis Severity: mild Female Urogenital Radiation: Non-Radiating Severity scale (1-10): 1 Quality of pain: cramping Consistency: constant Vaginal discharge: none Vaginal bleeding: moderate, bright red, dark red, clots and POC/tissue Urinary symptoms: Dysuria ( symptoms resolved and she is on antibiotics) Exacerbating factors: none Relieving factors: none Associated symptoms: denies other symptoms Treatment prior to arrival: none Sexual activity: Yes Patient : Yes Possible : at home test positive ( known positive from last visit as well and her hCG was 5708) Related Data Allergies Allergy/AdvReac Type Severity Reaction Status Date / Time No Known Allergies Allergy Verified 09/08/24 16:30 Review of Systems 2 Review of Systems: All systems reviewed & are unremarkable except as noted in HPI and below Constitutional: Constitutional: Reports no additional constitutional complaints Eyes: Eyes: Reports no additional eye complaints ENT: Reports system reviewed and no additional complaints, except as documented Cardiovascular: Cardiovascular: Reports no additional cardiovascular complaints Respiratory: Respiratory: Reports no additional respiratory complaints Gastrointestinal: Gastrointestinal: Reports no additional gastrointestinal complaints Genitourinary: Genitourinary: Reports no additional female genitourinary complaints Musculoskeletal: Musculoskeletal: Reports no additional musculoskeletal complaints Integumentary/Breasts: Skin/Breast: Reports system reviewed and no additional complaints, except as docu Neurologic: Reports system reviewed and no additional complaints, except as documented Psychiatric: Psychiatric: Reports no additional psychiatric complaints Endocrine: Endocrine: Reports no additional endocrine complaints Hematologic/Lymphatic: Hematologic/Lymphatic: Reports no additional hematologic/lymphatic complaints Allergic/Immunologic: Allergic/Immunologic: Reports no additional allergic/immunologic complaints [facility] Past Medical History Medical History Hepatitis C Surgical History Surgical History History of appendectomy Social History Social History Smoking status: Current every day smoker Tobacco type: e-cigarettes/vaping Alcohol intake: current Alcohol use details: occasional Substance use type: marijuana Exam 2 Const: General: healthy appearing Nutritional Appearance: well nourished Orientation/consciousness: patient oriented x3 Limitations: no limitations HENMT: Head: normal to inspection Ears: external ears normal F shelli/Nose/Sinus: Normal external nose present Eyes: Conjunctivae: conjunctivae normal Pupils: Equal, round and reactive pupils present EOM: EOMs intact bilaterally Neck: Neck: normal visual inspection Chest: Chest palpation & inspection: normal inspection of the chest Resp: Effort & Inspection: normal respiratory effort and not labored A uscultation: clear to auscultation bilaterally and no crackles Cardio: Rate: regular rate Rhythm: regular rhythm Heart sounds: no murmurs GI: Inspection: non-distended GI Palp: Yes Soft to palpation, Yes Tenderness to palpation present (GI) ( left lower quadrant /pelvis minimally), No Guarding due to palpation present (GI), No Rigid due to palpation, No Hernia present, No Palpable mass present and No Rebound tenderness present A uscultation: normal bowel sounds : General: Yes bladder normal to palpation Back/Spine/Pelvis: Back: no CVA tenderness Skin: General skin exam: normal color Rashes: no rashes Wounds: no wounds Neuro: General: patient oriented x3 Cranial nerves: Yes Nystagmus not present Speech: normal speech Gait exam (Neuro): Normal gait present Extrem: General: normal to inspection Psych: Appearance: grossly normal Mental Status: mental status grossly normal Affect: normal affect Attitude: cooperative Course Vital Signs Vital signs: Vital Signs Temperature 36.7 C 09/10/24 11:24 Pulse Rate 106 H 09/10/24 11:24 Respiratory Rate 20 09/10/24 11:24 Blood Pressure 128/99 H 09/10/24 11:24 Pulse Oximetry 99 09/10/24 11:24 Oxygen Delivery Room Air 09/10/24 11:24 Temperature 36.7 C 09/10/24 11:24 Pulse Rate 98 09/10/24 13:00 Respiratory Rate 20 09/10/24 13:00 Blood Pressure 124/90 09/10/24 13:00 Pulse Oximetry 99 09/10/24 13:00 Oxygen Delivery Room Air 09/10/24 13:00 MDM - Female Genitourinary MDM Narrative Medical decision making narrative: patient is a 23-year-old female who saw me the other night for a consideration of a missed spontaneous and she was discharged at that time with hopeful thoughts that this would take and proceed. Further she comes back with loss of large amounts of tissue/clots and it appears that she has had a miscarriage. The pain is not worse in the left lower quadrant which may be and probably related to urinary tract infection and the miscarriage. Ultrasound was done and did not see any adnexal masses were concerns for ectopic . She will return to the emergency room with any worse bleeding or worse pain. Lab Data Attestation: I reviewed the patient's lab results. 09/10/24 12:08 09/10/24 12:08 Labs: Lab Results 09/10/24 Range/Units 12:08 WBC 6.8 (4.8-10.8) K/mm3 RBC 4.62 (4.20-5.40) M/mm3 Hgb 14.6 (12.0-15.0) g/dL Hct 39.9 (35.0-49.0) % MCV 86.4 (78.0-102.0) fL MCH 31.6 H (27.0-31.0) pg MCHC 36.6 H (32-36) g/dL RDW 12.3 (11.6-14.4) % Plt Count 259 (150-420) K/mm3 MPV 9.9 (9.2-11.8) fl Immature Gran % (Auto) 0.3 H (0.0-0.0) % Neut % (Auto) 67.2 (50.0-70.0) % Lymph % (Auto) 20.7 (18.0-42.0) % [place] % (Auto) 9.7 (2.0-11.0) % Eos % (Auto) 1.5 (1.0-6.0) % Baso % (Auto) 0.6 (0.0-1.0) % Lymph # (Auto) 1.40 (1.10-4.50) K/mm3 [place] # (Auto) 0.66 (0.10-0.90) K/mm3 Eos # (Auto) 0.10 (0.02-0.50) K/mm3 Baso # (Auto) 0.04 (0.00-0.10) K/mm3 Abs Immat Gran (auto) 0.02 H (0.00-0.00) K/mm3 Absolute Neuts (auto) 4.55 (1.70-7.20) K/mm3 Absolute Nucleated RBC 0.00 (0.00-0.00) K/mm3 Nucleated RBC % 0.0 (0-0.0) % Sodium 137 (136-145) mmol/L Potassium 3.4 L (3.5-5.1) mmol/L Chloride 102 (98-108) mmol/L Carbon Dioxide 26 (21-32) mmol/L Anion Gap 9 (4-12) mmol/L BUN 6 L (7-18) mg/dL Creatinine 0.86 (0.55-1.02) mg/dL Estim Creat Clear Calc 79 ml/min Estimated GFR > 60 (59 - ) Glucose 95 (70-99) mg/dL Calculated Osmolality 281 L (285-295) mOsm/kg Calcium 9.5 (8.5-10.1) mg/dL Beta HCG, Quant 2063.00 H (0-6) mIU/mL Imaging Data Attestation: I personally reviewed and interpreted this imaging study as follows: Radiologist's impression: Ultrasound transvaginally shows no intrauterine or related products; no ectopic seen Discharge Plan Discharge Clinical Impression: Incomplete miscarriage Patient Disposition: Home, Self-Care Condition: Stable Instructions: Miscarriage (ED) Additional Instructions: Please follow-up with the primary doctor/ obstetrics gynecology md in the next week. You will need close follow-up to make sure that this has completely resolved. If you get further heavy bleeding or significant pain then you will need to be seen again right away in the emergency room. Patient Language: Swedish Prescriptions: No Action cephalexin 500 mg capsule 500 mg PO BID 7 Days Qty: 14 0RF Follow-up/Referrals: UNKNOWN,DOCTOR [Primary Care Provider] - Time of Disposition: 13:29
[2024-09-10 12:13] LABS: Basophils Absolute Auto 0.04 K/mm3 (0.00-0.10); Basophils Percent Auto 0.6 % (0.0-1.0); Eosinophils Percent Auto 1.5 % (1.0-6.0); Hematocrit 39.9 % (35.0-49.0); Hemoglobin 14.6 g/dL (12.0-15.0); Immature Granulocyte Absolute 0.02 K/mm3 (0.00-0.00); Immature Granulocyte Percent A 0.3 % (0.0-0.0); Lymphocytes Percent Auto 20.7 % (18.0-42.0); Mean Corpuscular HGB Conc 36.6 g/dL (32-36); Mean Corpuscular Hemoglobin 31.6 pg (27.0-31.0); Mean Corpuscular Volume 86.4 fL (78.0-102.0); Mean Platelet Volume 9.9 fl (9.2-11.8); Monocytes Absolute Auto 0.66 K/mm3 (0.10-0.90); Monocytes Percent Auto 9.7 % (2.0-11.0); Neutrophils Absolute Auto 4.55 K/mm3 (1.70-7.20); Neutrophils Percent Auto 67.2 % (50.0-70.0); Platelet Count Result 259 K/mm3 (150-420); Red Blood Count 4.62 M/mm3 (4.20-5.40); Red Cell Distribution Width 12.3 % (11.6-14.4); White Blood Count 6.8 K/mm3 (4.8-10.8)
[2024-09-10 12:23] LABS: Anion Gap 9 mmol/L (4-12); Blood Urea Nitrogen 6 mg/dL (7-18); Calcium 9.5 mg/dL (8.5-10.1); Carbon Dioxide 26 mmol/L (21-32); Chloride 102 mmol/L (98-108); Estimated CRCL calculation 79 ml/min; Estimated Glomerular Filt Rate > 60; Glucose 95 mg/dL (70-99); Osmolality Calculated 281 mOsm/kg (285-295); Potassium 3.4 mmol/L (3.5-5.1); Sodium 137 mmol/L (136-145)
[2024-09-10 13:00] VITALS: BP 124/90; PULSE 98; RESP 20; O2SAT 99
[2024-09-10] MEDS: POTASSIUM CHLORIDE 20 MEQ ER TABLET PO (13:34)
--- NOTE | 2024-09-11 18:18 | PC.NURSE ---
final urine culture report; mixed genital diamante isolated, no further action or change in treatment per dr. andino
== END 2024-09-10 13:45 | disposition home or self-care (01) ==
PROVIDERS: Emergency Provider Emergency Medicine
DX: O03.4 Incomplete spontaneous abortion without complication (principal); F17.210 Nicotine dependence, cigarettes, uncomplicated; F12.90 Cannabis use, unspecified, uncomplicated
CPT/HCPCS: 36415; 76830; 80048; 84702; 85025; 99284; A9270

== ENCOUNTER 2024-12-07 12:40 | Emergency (ER) | payer BC, SELFPAY ==
[2024-12-07 12:45] VITALS: BP 129/88; PULSE 102; RESP 16; TEMP 36.5; O2SAT 100
--- NOTE | 2024-12-07 12:55 | ED.SKABFB ---
HPI - Skin/Abscess/Foreign Bdy General Chief complaint: Skin/Abscess/Foreign Body Stated complaint: rash Time Seen by Provider: 12/07/24 12:55 Source: patient Mode of arrival: ambulatory Limitations: no limitations History of Present Illness HPI narrative: Patient is a 24-year-old female with a rash on her chin cheeks and bilateral temporal area. This has been going on for 1 day. complaint: rash Onset (ago): day(s) ( One) Tetanus up to date: yes Location: face Severity: moderate Severity scale (1-10): 3 Quality: pruritic Pain Consistency: constant Relieving factors: none Exacerbating factors: none Context: other ( patient started to have a facial rash over the past 24 hours which is pruritic in nature) Associated symptoms: denies other symptoms Treatments prior to arrival: none Related Data Allergies Allergy/AdvReac Type Severity Reaction Status Date / Time No Known Allergies Allergy Verified 09/08/24 16:30 Review of Systems Review of Systems: All systems reviewed & are unremarkable except as noted in HPI and below Constitutional: Constitutional: Reports no additional constitutional complaints Eyes: Eyes: Reports no additional eye complaints ENT: Reports system reviewed and no additional complaints, except as documented Cardiovascular: Cardiovascular: Reports no additional cardiovascular complaints Respiratory: Respiratory: Reports no additional respiratory complaints Gastrointestinal: Gastrointestinal: Reports no additional gastrointestinal complaints Genitourinary: Genitourinary: Reports no additional female genitourinary complaints Musculoskeletal: Musculoskeletal: Reports no additional musculoskeletal complaints Integumentary/Breasts: Skin/Breast: Reports system reviewed and no additional complaints, except as docu Neurologic: Reports system reviewed and no additional complaints, except as documented Psychiatric: Psychiatric: Reports no additional psychiatric complaints Endocrine: Endocrine: Reports no additional endocrine complaints Hematologic/Lymphatic: Hematologic/Lymphatic: Reports no additional hematologic/lymphatic complaints Allergic/Immunologic: Allergic/Immunologic: Reports no additional allergic/immunologic complaints [facility] Past Medical History Medical History Hepatitis C Surgical History Surgical History History of appendectomy Social History Social History Smoking status: Current every day smoker Tobacco type: e-cigarettes/vaping Alcohol intake: current Alcohol use details: occasional Substance use type: marijuana Exam Const: General: healthy appearing Nutritional Appearance: well nourished Orientation/consciousness: patient oriented x3 Limitations: no limitations HENMT: Head: normal to inspection Ears: external ears normal Face/Nose/Sinus: Normal external nose present Eyes: Conjunctivae: conjunctivae normal Pupils: Equal, round and reactive pupils present EOM: EOMs intact bilaterally Neck: Neck: normal visual inspection Chest: Chest palpation & inspection: normal inspection of the chest Resp: Effort & Inspection: normal respiratory effort and not labored Auscultation: clear to auscultation bilaterally and no crackles Cardio: Rate: regular rate Rhythm: regular rhythm Heart sounds: no murmurs GI: Inspection: non-distended Auscultation: normal bowel sounds and bowel sounds present : General: Yes bladder normal to palpation Back/Spine/Pelvis: Back: no CVA tenderness Skin: General skin exam: normal color Rashes: rash noted Wounds: no wounds Other: bilateral lower chin and cheeks and all the way up to the temporal area has red irritated erythema could fluent rash with pruritic changes; no cellulitis seen Neuro: General: patient oriented x3 Cranial nerves: Yes Nystagmus not present Speech: normal speech Gait exam (Neuro): Normal gait present Extrem: General: normal to inspection Psych: Mental Status: mental status grossly normal Affect: normal affect Attitude: cooperative Course Vital Signs Vital signs: Vital Signs Temperature 36.5 C 12/07/24 12:45 Pulse Rate 102 H 12/07/24 12:45 Respiratory Rate 16 12/07/24 12:45 Blood Pressure 129/88 12/07/24 12:45 Pulse Oximetry 100 12/07/24 12:45 Oxygen Delivery Room Air 12/07/24 12:45 Temperature 36.5 C 12/07/24 12:45 Pulse Rate 102 H 12/07/24 12:45 Respiratory Rate 16 12/07/24 12:45 Blood Pressure 129/88 12/07/24 12:45 Pulse Oximetry 100 12/07/24 12:45 Oxygen Delivery Room Air 12/07/24 12:45 MDM - Skin/Abscess/Foreign Bdy MDM Narrative Medical decision making narrative: patient is a 24-year-old female with a facial rash and dermatitis. We will give her prednisone now and send her home with desonide cream. Discharge Plan Discharge Clinical Impression: Perioral dermatitis Patient Disposition: Home, Self-Care Condition: Stable Instructions: Dermatitis (ED) Patient Language: Uzbek Prescriptions: New desonide 0.05 % cream 1 applic topical BID PRN (Reason: skin irritation) Qty: 15 0RF No Action cephalexin 500 mg capsule 500 mg PO BID 7 Days Qty: 14 0RF Follow-up/Referrals: Jamaal Hodges MD [Primary Care Provider] - Time of Disposition: 13:51
--- OUTSIDE RECORDS SUMMARY | 2024-12-07 12:56 | XMS_ITS | Data Portability ---
Author Organization [facility] MEHRANYosef Fonseca Address [address] [place] [address] Assessment No assessment recorded. Plan of Treatment [...] Details Recorded Time Appendectomy completed EVELIA Raymundo [facility] 03/20/2024 14:03:32 Imaging Results None recorded. Procedure [...] Updated DateTime 03/20/2024 165.1 cm 21.1 kg/m2 49104.23 g 141 mm[Hg] 84 mm[Hg] EVELIA Trevizo [facility] 13:59:16 Social History Question Answer Notes LastModified [...] available 05/2024 14:02:23 Medical History Condition Response Anxiety Disorder Y Hepatitis Y Anemia Y Gynecological History Statement/Question Response Flow Moderate [...] Diagnosis/Indication Diagnosis SNOMED-CT Code Diagnosis ICD10 Code Diagnosis Note [id number] TREVON Oliva 14 OB [address] [facility] [place] [address] 03/20/2024 13:50:13 03/21/2024 09:28:36 Contraception care management [id number] Z30.9 Patient here for control discussion . All forms of control reviewed with patient including risks, benefits, pros and cons. Patient verbalized understand ing of all forms and that abstinence is the only true form of control. Condom use reviewed as well and prevention of STD's. Patient would like us to order IUD. Device reviewed with patient and pamphlet given. Will call when device arrives to schedule appt or when pt is on cycle. Health Concerns Section Related Observation LastModified by Organization Detai ls LastModified Time None Recorded Concern Status LastModified by Organization Details LastModified Time None Recorded Advance Directives Directive None Recorded Payers Encounter Date Sequence Insurance Name Policy Number Policy Thomas Covered Member ID Thomas Member ID Guarantor Name 03/20/2024 1 [facility] (MEDICAID REPLACEMENT - HMO) [id number] Annie Marcella [id number] Annie Naranjo Notes Date Note Type Note Provider [...] to have mirena- states normal pap in [place] done last year, will obtain records- no other complaints or concerns MARIANNA Oliva- Attn: Accounting[address] 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 Status 03/20/20 24 1 CLOSED Fetus Data First Name Last Name Admitted to NICU Weight (g) Sex Living Outcome Pediatric Complications Fetus ID Race Codes Race Delivery Type 5.88 8704 F [place] [address] Vaginal Sebastian Calculation Initial Sebastian Date Initial Exam Date Initial Exam Provider Initial Ultrasound Date Last Menstrual Period Date Ultra Sound Weeks Gestation 0 Eighteen To Twenty Week Sebastian Update Ultra Sound Date Fundal Height At Umbil Quickening Date Ultra Sound Latest Weeks Gestation Final Sebastian Confirmed By Final Sebastian Confirmed Date Final Sebastian Date Ultra Sound Latest Days Gestation 0 0 Menstrual History Last Menstrual Date Menses Monthly On Bcp Conception Prior Menses Frequency Hcg Plus Date Menarche Onset Age Delivery Information Delivery Date Delivery Type Labor Anesthesia Weeks Gestation Incision Type Labor Labor Length Hrs Delivered By Post Complications Tubal Sterilization Discharge Date Comments 0 36 [place] Discharge Information Feeding Method Contraceptive Method Maternal HG B and HCT Levels
--- OUTSIDE RECORDS SUMMARY | 2024-12-07 13:15 | XMS_ITS | Data Portability ---
Author Organization [place] [facility], zLSP_General Surgery_[facility] Address [address] [place] [address] Assessment Encounter Date Assessment Date Assessment LastModified by Organization Details LastModified Time 10/08/2019 10/08/2019 Discussed blues with patient. Warning signs reviewed. CMP ordered today to re-evaluate liver enzymes. Nexplanon ordered. Patient has history of marijuana use, reports last use the beginning of September. She would like drug screen performed today. Follow-up in 5 weeks for visit. Not available 10/08/2019 14:54:23 11/12/2019 11/12/2019 exam: -Patient cleared to resume normal activity -Pap performed -liver function and hepatitis viral loads ordered today. She has follow-up with gastroenterology scheduled PP Depression Screen: -Discussed signs and symptoms of PP depression, Patient encouraged to contact clinic if symptoms are to occur Contraceptive counseling: -Nexplanon has been ordered, we will follow up with specially pharmacy in order to get her device before insurance terms. [email or web address] Not available 11/12/2019 22:34:43 11/19/2019 11/19/2019 The risks, benefits, alternatives, and indications for Nexplanon use were reviewed with patient. Reviewed side effects which include irregular bleeding, weight gain, and mood disturbances. Reviewed that the device is effective for 3 years. Reviewed that device does not protect against sexually transmitted infections and recommend condoms with all sexual encounters to prevent these. All questions were answered and consent was obtained. Device placed without difficulty. She tolerated the procedure well. Post placement instructions reviewed with patient. Reviewed use of SSRI therapy. Risks benefits side effects reviewed. Will restart her Prozac at her previous dose of 10 mg. Patient has follow follow-up scheduled with Gastroenterology secondary to hepatitis C, again reinforced importance of following up for treatment [email or web address] Not available 11/19/2019 22:29:17 Plan of Treatment Reminders Order Date Submit Date Provider Last Modified By Organization Details Last Modified Time Details Appointments None recorded. Lab hepatitis C virus RNA, quant, PCR, serum or plasma 2019 [email or web address] Not available 0 12:37:40 hepatic function panel, serum 2019 020 [email or web address] Not available 0 12:37:40 hepatitis B virus core Ab igg, serum 2019 [email or web address] Not available 0 14:21:38 test, urine 2019 [facility], [address], [address], [place], [address], 0 14:37:07 urinalysis , dipstick 2019 [place] [id number] [facility], [address], [address], [place], [address], 0 21:23:34 test, urine 2019 [place] [address] [facility], [address], [address], [place], [address], 0 21:23:34 pap, LB + reflex to HR HPV if ASC-U 2019 KELY Mccracken (Lab), [address], [place], [address], 0 16:04:14 unlisted lab - leukorrhea panel, thinprep vial contains verna, gardnerell a, trich, ctng 2019 KELY Mccracken (Lab), [address], [place], [address], 0 16:04:14 CMP, serum or plasma 2019 020 KELY Mccracken (Lab), [facility] , [place], [address], 0 17:44:28 unlisted lab - hepatitis C antibody w/ reflex to PCR 2019 020 KELY Mccracken (Lab), [address] [place] [address] , [place], [address], 0 17:44:29 drug screen, urine 2019 020 KELY Mccracken (Lab), [address] [place] [address] , [place], [address], 0 08:36:30 CMP, serum or plasma 2019 020 KELY Mccracken (Lab), [address] [place] [address] , [place], [address], 0 08:36:31 Referral None recorded. Procedures None recorded. Surgeries None recorded. Imaging None recorded. Medication Orders fluoxetine 10 mg capsule 2019 020 [id number], [address] [address], [place], [place], [id number], 0 12:32:29 Patient TargetsNo targets recorded. Patient Instructions Encounter Date Encounter Id Patient Instructions Last Modified By Organization Details Last Modified Time 10/08/2019 [id number] hepatitis C: car e instructions [email or web address] Not available 10/08/2019 17:57:11 learning about hepatitis C [email or web address] Not available 10/08/2019 17:57:11 11/12/2019 [id number] hepatitis C: car e instructions [email or web address] Not available 11/12/2019 21:23:34 11/19/2019 [id number] learning about mood disorders [email or web address] Not available 11/19/2019 12:32:11 Reason for Referral None Reported. Results Created Date Observation Date Name Description Value Unit Range Abnormal Flag Note LastModifiedBy Organization Detail LastModifiedTime 11/19/19 20 11/19/2019 pregn isidoro test, urine HCG - Urine negati ve Not Available [facility] [address], [place], [address], 11/19/2019 11:03:02 11/12/19 20 11/12/2019 pregn isidoro test, urine HCG - Urine negati ve Not Available [facility] [address], [place], [address], 11/12/2019 16:10:17 11/12/19 20 11/12/2019 urina lysis , dipst ick Leukocytes (reference range: negative jonathan/ l) small Not Available [facility] [employer] [address], [place], [address], 11/12/2019 16:10:16 11/12/19 20 11/12/2019 urina lysis , dipst ick Nitrite (reference range: negative mg/dl) negati ve Not Available [facility] [address], [place], [address], 11/12/2019 16:10:16 11/12/19 20 11/12/2019 urina lysis , dipst ick Urobilinogen (reference range: 0.2 - 1 mg/dl) 0.2 Not Available [facility] [employer] [address], [place], [address], 11/12/2019 16:10:16 11/12/19 20 11/12/2019 urina lysis , dipst ick Protein (reference range: negative mg/dl) trace Not Available [facility] [employer] [facility] [address], [place], [address], 11/12/2019 16:10:16 11/12/19 20 11/12/2019 urina lysis , dipst ick pH (reference range: 5 - 7 units) 6.0 Not Available [facility] [employer] [address], [place], [address], 11/12/2019 16:10:16 11/12/19 20 11/12/2019 urina lysis , dipst ick Blood (reference range: negative rbc/ l) non-He molyze d: Trace Not Available [facility] [address], [place], [address], 11/12/2019 16:10:16 11/12/19 20 11/12/2019 urina lysis , dipst ick Specific gravity (reference range: 1.005 - 1.030) 1.020 Not Available Elton Campos [employer] [address], [place], [address], 11/12/2019 16:10:16 11/12/19 20 11/12/2019 urina lysis , dipst ick Ketone (reference range: negative mg/dl) modera te Not Available [facility] [address], [place], [address], 11/12/2019 16:10:16 11/12/19 20 11/12/2019 urina lysis , dipst ick Bilirubin (reference range: negative mg/dl) negati ve Not Available [facility] [address], [place], [address], 11/12/2019 16:10:16 11/12/19 20 11/12/2019 urina lysis , dipst ick Glucose (reference range: negative mg/dl) negati ve Not Available [facility] [address], [place], [address], 11/12/2019 16:10:16 11/12/19 20 11/12/2019 urina lysis , dipst ick Appearance (reference range: clear) clear Not Available Elton Campos [employer] [address], [place], [address], 11/12/2019 16:10:16 11/12/19 20 11/12/2019 urina lysis , dipst ick Color (reference range: yellow) brown Not Available [facility] [employer] [facility] [address], [place], [address], 11/12/2019 16:10:16 09/26/19 20 09/26/2019 urina lysis , dipst ick Leukocytes (reference range: negative jonathan/ l) modera te Not Available [facility] [address], [place], [address], 09/26/2019 14:52:35 09/26/19 20 09/26/2019 urina lysis , dipst ick Nitrite (reference range: negative mg/dl) negati ve Not Available [facility] [address], [place], [address], 09/26/2019 14:52:35 09/26/19 20 09/26/2019 urina lysis , dipst ick Urobilinogen (reference range: 0.2 - 1 mg/dl) 8 Not Available [facility] [address], [place], [address], 09/26/2019 14:52:35 09/26/19 20 09/26/2019 urina lysis , dipst ick Protein (reference range: negative mg/dl) 30 Not Available [facility] [address], [place], [address], 09/26/2019 14:52:35 09/26/19 20 09/26/2019 urina lysis , dipst ick pH (reference range: 5 - 7 units) 8.0 Not Available [facility] [address], [place], [address], 09/26/2019 14:52:35 09/26/19 20 09/26/2019 urina lysis , dipst ick Blood (reference range: negative rbc/ l) negati ve Not Available [facility] [address], [place], [address], 09/26/2019 14:52:35 09/26/19 20 09/26/2019 urina lysis , dipst ick Specific gravity (reference range: 1.005 - 1.030) 1.005 Not Available [facility] [employer] [address], [place], [address], 09/26/2019 14:52:35 09/26/19 20 09/26/2019 urina lysis , dipst ick Ketone (reference range: negative mg/dl) negati ve Not Available [facility] [address], [place], [address], 09/26/2019 14:52:35 09/26/19 20 09/26/2019 urina lysis , dipst ick Bilirubin (reference range: negative mg/dl) large Not Available Bailey [facility] [employer] [address], [place], [address], 09/26/2019 14:52:35 09/26/19 20 09/26/2019 urina lysis , dipst ick Glucose (reference range: negative mg/dl) 100 Not Available [facility] [address], [place], [address], 09/26/2019 14:52:35 09/26/19 20 09/26/2019 urina lysis , dipst ick Appearance (reference range: clear) cloudy Not Available Bailey [facility] [employer] [address], [place], [address], 09/26/2019 14:52:35 09/26/19 20 09/26/2019 urina lysis , dipst ick Color (reference range: yellow) orange Not Available Elton Campos [employer] [address], [place], [address], 09/26/2019 14:52:35 09/19/19 20 09/19/2019 urina lysis , dipst ick Leukocytes (reference range: negative jonathan/ l) modera te Not Available [facility] [address], [place], [address], 09/19/2019 17:07:14 09/19/19 20 09/19/2019 urina lysis , dipst ick Nitrite (reference range: negative mg/dl) negati ve Not Available [facility] [address], [place], [address], 09/19/2019 17:07:14 09/19/19 20 09/19/2019 urina lysis , dipst ick Urobilinogen (reference range: 0.2 - 1 mg/dl) 1 Not Available Conde [facility] [employer] [address], [place], [address], 09/19/2019 17:07:14 09/19/19 20 09/19/2019 urina lysis , dipst ick Protein (reference range: negative mg/dl) trace Not Available Conde [facility] [employer] [address], [place], [address], 09/19/2019 17:07:14 09/19/19 20 09/19/2019 urina lysis , dipst ick pH (reference range: 5 - 7 units) 8.5 Not Available [facility] [employer] [address], [place], [address], 09/19/2019 17:07:14 09/19/19 20 09/19/2019 urina lysis , dipst ick Blood (reference range: negative rbc/ l) negati ve Not Available [facility] [address], [place], [address], 09/19/2019 17:07:14 09/19/19 20 09/19/2019 urina lysis , dipst ick Specific gravity (reference range: 1.005 - 1.030) 1.005 Not Available Bailey Carlito [facility] [employer] [facility] [address], [place], [address], 09/19/2019 17:07:14 09/19/19 20 09/19/2019 urina lysis , dipst ick Ketone (reference range: negative mg/dl) negati ve Not Available [facility] [address], [place], [address], 09/19/2019 17:07:14 09/19/19 20 09/19/2019 urina lysis , dipst ick Bilirubin (reference range: negative mg/dl) modera te Not Available [facility] [address], [place], [address], 09/19/2019 17:07:14 09/19/19 20 09/19/2019 urina lysis , dipst ick Glucose (reference range: negative mg/dl) negati ve Not Available [facility] [address], [place], [address], 09/19/2019 17:07:14 09/19/1909/19/2019 urina lysis , dipst ick Appearance (reference range: clear) cloudy Not Available Bailey [facility]ito [employer] [facility] [address], [place], [address], 09/19/2019 17:07:14 09/19/1909/19/2019 urina lysis , dipst ick Color (reference range: yellow) orange Not Available Elton Campos [employer] [address], [place], [address], 09/19/2019 17:07:14 09/14/19 20 09/14/2019 bile acid, quant , serum total bile acids 29 mcmol /L 0-10 high Refer ence inter radha appli es to fasti ng speci mens. TESTI NG PERFO RMED AT [facility] [employer] [address], [address], [address] [place] [address] CLIA NO: [id number] UNLES S OTHER GEORGE INDIC ATED, ALL TESTI NG PERFO RMED AT CLINI JOANN PATHO LOGY [facility] [employer] [address] [place] [address] LABOR ATORY DIREC TOR: TOAN KENNEDY M.D. CLIA NUMBE [id number] [place]. [id number] -01 Not Available [facility] (Lab) [facility], [place], [address], 09/17/2019 18:08:55 09/14/19 20 09/14/2019 CMP, serum or plasm a glucose 71 mg/dL 68-110 Fasti ng Gluco se Refer ence Range : Predi abete s 100 - 125 mg/dL Diabe slick >/= 126 mg/dL Gesta dmitriy l diabe slick > 92 mg/dL Not Available [facility] (Lab) [address], [place], [address], 09/17/2019 18:08:55 09/14/19 20 09/14/2019 CMP, serum or plasm a BUN 6 mg/dL 7-19 low Not Available [facility] (L ab) [address], [place], [address], 09/17/2019 18:08:55 09/14/19 20 09/14/2019 CMP, serum or plasm a creatinine 0.6 mg/dL 0.6-1. 2 Not Available [facility] (Lab) [facility], [place], [address], 09/17/2019 18:08:55 09/14/19 20 09/14/2019 CMP, serum or plasm a BUN/creat ratio 11 ratio 10-21 Not Available [facility] (Lab) [address] [place] [address] [address], [place], [address], 09/17/2019 18:08:55 09/14/19 20 09/14/2019 CMP, serum or plasm a bilirubin, total 1.00 mg/dL 0.27-1 .23 Not Available [facility] (Lab) [address] [place] [address] [address], [place], [address], 09/17/2019 18:08:55 09/14/19 20 09/14/2019 CMP, serum or plasm a AST (SGOT) 182 U/L 10-34 high Not Available [facility] (Lab) [address] [place] [address] [address], [place], [address], 09/17/2019 18:08:55 09/14/19 20 09/14/2019 CMP, serum or plasm a ALT (SGPT) 391 U/L 7-39 high Not Available [facility] (Lab) [address] [place] [address] [place], [address], 09/17/2019 18:08:55 09/14/19 20 09/14/2019 CMP, serum or plasm a alkaline phosphatase 159 U/L 26-104 high Not Available [facility] (Lab) [address] [place] [address] [place], [address], 09/17/2019 18:08:55 09/14/19 20 09/14/2019 CMP, serum or plasm a calcium 9.2 mg/dL 8.9-10 .3 Not Available [facility] (Lab) [address] [place] [address] [place], [address], 09/17/2019 18:08:55 09/14/1909/14/2019 CMP, serum or plasm a sodium 136 mEq/L 136-14 5 Not Available [facility] (Lab) [address] [place] [address] [place], [address], 09/17/2019 18:08:55 09/14/19 20 09/14/2019 CMP, serum or plasm a potassium 3.8 mEq/L 3.5-5. 1 Not Available [facility] (Lab) [address] [place] [address] [address], [place], [address], 09/17/2019 18:08:55 09/14/19 20 09/14/2019 CMP, serum or plasm a chloride 101 mEq/L 98-107 Not Available [facility] ( Lab) [address] [place] [address] [address], [place], [address], 09/17/2019 18:08:55 09/14/19 20 09/14/2019 CMP, serum or plasm a CO2 29 mmol/ L 23-33 Not Available [facility] (Lab) [address] [place] [address] [address], [place], [address], 09/17/2019 18:08:55 09/14/1909/14/2019 CMP, serum or plasm a total protein 6.5 g/dL 6.4-7. 9 Not Available [facility] (Lab) [address] [place] [address] [address], [place], [address], 09/17/2019 18:08:55 09/14/19 20 09/14/2019 CMP, serum or plasm a albumin 3.4 g/dL 3.8-4. 9 low Not Available [facility] (Lab) [address] [place] [address] [address], [place], [address], 09/17/2019 18:08:55 09/14/19 20 09/14/2019 CMP, serum or plasm a globulin 3.1 g/dL 2.0-4. 0 Not Available [facility] (Lab) [address] [place] [address] [address], [place], [address], 09/17/2019 18:08:55 09/14/1909/14/2019 CMP, serum or plasm a eGFR 166 mL/mi n/1.7 3m2 >60 Not Available [facility] (Lab) [address] [place] [address] [address], [place], [address], 09/17/2019 18:08:55 09/14/1909/14/2019 CMP, serum or plasm a eGFR non- 137 mL/mi n/1.7 3m2 >60 Not Available [facility] (Lab) [address] [place] [address] [address], [place], [address], 09/17/2019 18:08:55 09/14/19 20 09/14/2019 CMP, serum or plasm a albumin/glob ulin 1.1 ratio 1.2-2. 2 low Not Available [facility] (Lab) [address] [place] [address] , [place], [address], 09/17/2019 18:08:55 09/14/19 20 09/14/2019 CMP, serum or plasm a anion gap 10 mEq/L 9-14 Not Available [facility] (Lab) [address] [place] [address] , [place], [address], 09/17/2019 18:08:55 09/19/19 20 09/19/2019 bile acid, quant , serum total bile acids 76 mcmol /L 0-10 high Refer ence inter radha appli es to fasti ng speci mens. TESTI NG PERFO RMED AT SONIC REFER [facility]CE LABOR [employer] [address], [address], [address] [place] [address] CLIA NO: [id number] UNLES S OTHER GEORGE INDIC ATED, ALL TESTI NG PERFO RMED AT CLINI JOANN PATHO LOGY LABOR [employer] [address] [place] [address] LABOR [employer] DIREC TOR: TOAN KENNEDY M.D. CLIA NUMBE [id number] [place]. [id number] -01 Not Available [facility] (Lab) [address] [place] [address] , [place], [address], 09/21/2019 15:31:54 09/19/19 20 09/19/2019 CMP, serum or plasm a glucose 73 mg/dL 68-110 Fasti ng Gluco se Refer ence Range : Predi abete s 100 - 125 mg/dL Diabe slick >/= 126 mg/dL Gesta dmitriy l diabe slick > 92 mg/dL Not Available [facility] (Lab) [address] [place] [address] , [place], [address], 09/21/2019 15:31:55 09/19/19 20 09/19/2019 CMP, serum or plasm a BUN 7 mg/dL 7-19 Not Available [facility] (L [facility]) [address] [place] [address] , [place], [address], 09/21/2019 15:31:55 09/19/19 20 09/19/2019 CMP, serum or plasm a creatinine 0.6 mg/dL 0.6-1. 2 Not Available [facility] (Lab) [address] [place] [address] , [place], [address], 09/21/2019 15:31:55 09/19/19 20 09/19/2019 CMP, serum or plasm a BUN/creat ratio 11 ratio 10-21 Not Available [facility] ([facility]) [address] [place] [address] , [place], [address], 09/21/2019 15:31:55 09/19/19 20 09/19/2019 CMP, serum or plasm a bilirubin, total 1.70 mg/dL 0.27-1 .23 high Not Available [facility] (Lab) [address] [place] [address] [address], [place], [address], 09/21/2019 15:31:55 09/19/19 20 09/19/2019 CMP, serum or plasm a AST (SGOT) 202 U/L 10-34 high Not Available [facility] (Lab) [address] [place] [address] , [place], [address], 09/21/2019 15:31:55 09/19/19 20 09/19/2019 CMP, serum or plasm a ALT (SGPT) 433 U/L 7-39 high Not Available [facility] (Lab) [address] [place] [address] [place], [address], 09/21/2019 15:31:55 09/19/19 20 09/19/2019 CMP, serum or plasm a alkaline phosphatase 162 U/L 26-104 high Not Available [facility] (Lab) [address] [place] [address] , [place], [address], 09/21/2019 15:31:55 09/19/19 20 09/19/2019 CMP, serum or plasm a calcium 9.0 mg/dL 8.9-10 .3 Not Available [facility] (Lab) [address] [place] [address] [place], [address], 09/21/2019 15:31:55 09/19/19 20 09/19/2019 CMP, serum or plasm a sodium 134 mEq/L 136-14 5 low Not Available [facility] (Lab) [address] [place] [address] , [place], [address], 09/21/2019 15:31:55 09/19/19 20 09/19/2019 CMP, serum or plasm a potassium 4.1 mEq/L 3.5-5. 1 Not Available [facility] (Lab) [address] [place] [address] , [place], [address], 09/21/2019 15:31:55 09/19/19 20 09/19/2019 CMP, serum or plasm a chloride 102 mEq/L 98-107 Not Available [facility] ( Lab) [address] [place] [address] [address], [place], [address], 09/21/2019 15:31:55 09/19/19 20 09/19/2019 CMP, serum or plasm a CO2 28 mmol/ L 23-33 Not Available [facility] (Lab) [address] [place] [address] [address], [place], [address], 09/21/2019 15:31:55 09/19/19 20 09/19/2019 CMP, serum or plasm a total protein 6.8 g/dL 6.4-7. 9 Not Available [facility] (Lab) [address] [place] [address] , [place], [address], 09/21/2019 15:31:55 09/19/19 20 09/19/2019 CMP, serum or plasm a albumin 3.4 g/dL 3.8-4. 9 low Not Available [facility] (Lab) [address] [place] [address] [address], [place], [address], 09/21/2019 15:31:55 09/19/19 20 09/19/2019 CMP, serum or plasm a globulin 3.4 g/dL 2.0-4. 0 Not Available [facility] (Lab) [address] [place] [address] [address], [place], [address], 09/21/2019 15:31:55 09/19/19 20 09/19/2019 CMP, serum or plasm a eGFR 145 mL/mi n/1.7 3m2 >60 Not Available [facility] (Lab) [address] [place] [address] , [place], [address], 09/21/2019 15:31:55 09/19/19 20 09/19/2019 CMP, serum or plasm a eGFR non- 119 mL/mi n/1.7 3m2 >60 Not Available [facility] (Lab) [address] [place] [address] , [place], [address], 09/21/2019 15:31:55 09/19/19 20 09/19/2019 CMP, serum or plasm a albumin/glob ulin 1.0 ratio 1.2-2. 2 low Not Available [facility] (Lab) [address] [place] [address] , [place], [address], 09/21/2019 15:31:55 09/19/19 20 09/19/2019 CMP, serum or plasm a anion gap 8 mEq/L 9-14 low Not Available [facility] (Lab) [address] [place] [address] , [place], [address], 09/21/2019 15:31:55 09/25/19 20 09/26/2019 cultu re, vagin al/re ctal, strep tococ cus group B group B strep Negati ve normal GROUP B STREP TOCOC CI: Negat mariusz Metho d: Real- time PCR. This test was devel oped and its perfo rmanc e irwin cteri stics deter mined by [facility]. It has not been clear ed or appro maximo by the U.S. Food and Drug Admin istra tion (FDA) . The labor atory is regul ated under CLIA as quali fied to perfo rm high- compl exity testi ng. This test is used for clini joann purpo ses. It shoul d not be regar ded as inves tigat ional or for resea [facility]. Not Available [facility] (Lab) [address] [place] [address] , [place], [address], 09/27/2019 12:03:12 09/25/19 09/26/2019 patho logy study pdfreport PROPAT H Not Available [facility] (Landy echevarria) [address], [place], [address], 09/27/2019 12:03:13 09/27/1909/27/2019 surgi joann patho logy study surgical procedure See Result s ----- ----- ----- ----- -SPEC IMEN PART- ----- ----- ----- --- A. Place nta ----- ----- ----- ----- -CLIN ICAL HX--- ----- ----- ----- --- No clini joann submi tted ----- ----- ----- ----- -MAVIS L DIAGN OSIS- ----- ----- ----- - A. Place nta: Umbil ical cord: - Three vesse l cord, no signi fican t patho logic abnor malit y. membr anes: - Pigme nted laden macro phage s, sugge stive of mecon ium stain ing. Place ntal disc: - Third trime ster place nta (285 g), small for gesta dmitriy l age. - Micro calci ficat ions. ----- ----- ----- ----- -MICR O DIAGN OSIS- ----- ----- ----- - The stain quali ty is adequ ate. The micro scopi c findi ngs are refle cted in the diagn osis. ----- ----- ----- ----- -GILBERTO S DESCR IPTIO N---- ----- ----- - A. Submi tted in forma raman; Desig nated : Plac enta Inven tory: Singl eton place nta with attac hed umbil ical cord and membr anes Shape : Disco id Dimen sions : 16.5 x 13.8 x 2.0 cm Weigh t: 285 gm, below the 10th perce ntile for gesta dmitriy l age Membr anes: Color : Green Inser tion: Kiya nal surfa ce: Alexandria l Umbil ical cord: Inser tion: Velam entou s Lengt h: 12.5 cm, short for gesta dmitriy l age Vesse ls: Three Diame ter: 0.8 cm Lesio ns: No focal lesio ns Numbe r of coils : 12 Mater nal surfa ce: Alexandria l Place ntal paren chyma : [place] l Summa ry of secti ons: (A1) Umbil ical cord and membr ane roll, 3 pcs (A2-A 3) Ortiz campos place nta, 1 pc each Not Available [facility] ([facility]) [address] , [place], [address], 2019 18:04:36 09/27/19 20 09/27/2019 surgi joann patho logy study surgical procedure See Result s ----- ----- ----- ----- -SPEC IMEN PART- ----- ----- ----- --- A. Place nta ----- ----- ----- ----- -CLIN ICAL HX--- ----- ----- ----- --- No clini joann submi tted ----- ----- ----- ----- -MAVIS L DIAGN OSIS- ----- ----- ----- - A. Place nta: Umbil ical cord: - Three vesse l cord, no signi fican t patho logic abnor malit y. membr anes: - Pigme nted laden macro phage s, sugge stive of mecon ium stain ing. Place ntal disc: - Third trime ster place nta (285 g), small for gesta dmitriy l age. - Micro calci ficat ions. ----- ----- ----- ----- -MICR O DIAGN OSIS- ----- ----- ----- - The stain quali ty is adequ ate. The micro scopi c findi ngs are refle cted in the diagn osis. ----- ----- ----- ----- -GILBERTO S DESCR IPTIO N---- ----- ----- - A. Submi tted in forma raman; Desig nated : Plac enta Inven tory: Singl eton place nta with attac hed umbil ical cord and membr anes Shape : Disco id Dimen sions : 16.5 x 13.8 x 2.0 cm Weigh t: 285 gm, below the 10th perce ntile for gesta dmitriy l age Membr anes: Color : Green Inser tion: Kiya nal surfa ce: [place] l Umbil ical cord: Inser tion: Velam entou s Lengt h: 12.5 cm, short for gesta dmitriy l age Vesse ls: Three Diame ter: 0.8 cm Lesio ns: No focal lesio ns Numbe r of coils : 12 Mater nal surfa ce: Alexandria l Place ntal paren chyma : [place] l Summa ry of secti ons: (A1) Umbil ical cord and membr ane roll, 3 pcs (A2-A 3) Rando m place nta, 1 pc each Not Available [facility] ([facility]) [address] [place] [address] Aron Zelaya, [place], [address], 2019 16:44:12 09/27/19 20 09/27/2019 patho logy study pdfreport PROPAT H Not Available [facility] ([facility]) [address] [place] [address] Aron Zelaya, [place], [address], 2019 16:44:13 10/08/19 20 10/08/2019 drug scree n, urine amphetamine Negati ve negati ve Not Available [facility] ([facility]) [address] [place] [address] Aron Zelaya, [place], [address], 10/09/2019 08:36:30 10/08/19 20 10/08/2019 drug scree n, urine barbiturate Negati ve negati ve Not Available [facility] ([facility]) [address] [place] [address] Aron Zelaya, [place], [address], 10/09/2019 08:36:30 10/08/19 20 10/08/2019 drug scree n, urine benzodiazepi ne Negati ve negati ve Not Available [facility] ([facility]) [address] [place] [address] Aron Zelaya, [place], [address], 10/09/2019 08:36:30 10/08/19 20 10/08/2019 drug scree n, urine cocaine Negati ve negati ve Not Available [facility] ([facility]) [address] [place] [address] Aron Zelaya, [place], [address], 10/09/2019 08:36:30 10/08/19 20 10/08/2019 drug scree n, urine methadone Negati ve negati ve Not Available [facility] ([facility]) [address] [place] [address] Aron Zelaya, [place], [address], 10/09/2019 08:36:30 10/08/19 20 10/08/2019 drug scree n, urine opiates Negati ve negati ve Not Available [facility] ([facility]) [address] [place] [address] Aron Zelaya, [place], [address], 10/09/2019 08:36:30 10/08/19 20 10/08/2019 drug scree n, urine pcp Negati ve negati ve Not Available [facility] ([facility]) [address] [place] [address] Aron Zelaya, [place], [address], 10/09/2019 08:36:30 10/08/19 20 10/08/2019 drug scree n, urine THC Positi ve negati ve abnormal Not Available [facility] ([facility]) [address] [place] [address] Aron Zelaya, [place], [address], 10/09/2019 08:36:30 10/08/19 20 10/08/2019 CMP, serum or plasm a glucose 91 mg/dL 68-110 Fasti ng Gluco se Refer ence Range : Predi abete s 100 - 125 mg/dL Diabe slick >/= 126 mg/dL Gesta dmitriy l diabe slick > 92 mg/dL Not Available [facility] ([facility]) [address] [place] [address] Aron Zelaya, [place], [address], 10/09/2019 08:36:31 10/08/19 20 10/08/2019 CMP, serum or plasm a BUN 14 mg/dL 7-19 Not Available [facility] (L ab) [address] [place] [address] Aron Zelaya, [place], [address], 10/09/2019 08:36:31 10/08/19 20 10/08/2019 CMP, serum or plasm a creatinine 0.7 mg/dL 0.6-1. 2 Not Available [facility] ([facility]) [address] [place] [address] Aron Zelaya, [place], [address], 10/09/2019 08:36:31 10/08/19 20 10/08/2019 CMP, serum or plasm a BUN/creat ratio 19 ratio 10-21 Not Available [facility]) [address] [place] [address] , [place], [address], 10/09/2019 08:36:31 10/08/19 20 10/08/2019 CMP, serum or plasm a bilirubin, total 0.80 mg/dL 0.27-1 .23 Not Available [facility] ([facility]) [address] [place] [address] Aron Zelaya, [place], [address], 10/09/2019 08:36:31 10/08/19 20 10/08/2019 CMP, serum or plasm a AST (SGOT) 146 U/L 10-34 high Not Available [facility] ([facility]) [address] [place] [address] Aron Zelaya, [place], [address], 10/09/2019 08:36:31 10/08/19 20 10/08/2019 CMP, serum or plasm a ALT (SGPT) 365 U/L 7-39 high Not Available [facility] ([facility]) [address] [place] [address] Aron Zelaya, [place], [address], 10/09/2019 08:36:31 10/08/19 20 10/08/2019 CMP, serum or plasm a alkaline phosphatase 165 U/L 26-104 high Not Available [facility] ([facility]) [address] [place] [address] [place], [address], 10/09/2019 08:36:31 10/08/19 20 10/08/2019 CMP, serum or plasm a calcium 10.0 mg/dL 8.9-10 .3 Not Available [facility] ([facility]) [address] [place] [address] Aron Zelaya, [place], [address], 10/09/2019 08:36:31 10/08/19 20 10/08/2019 CMP, serum or plasm a sodium 139 mEq/L 136-14 5 Not Available [facility] ([facility]) [address] [place] [address] Aron Zelaya, [place], [address], 10/09/2019 08:36:31 10/08/19 20 10/08/2019 CMP, serum or plasm a potassium 3.8 mEq/L 3.5-5. 1 Not Available [facility] ([facility]) [address] [place] [address] Aron Zelaya, [place], [address], 10/09/2019 08:36:31 10/08/1910/08/2019 CMP, serum or plasm a chloride 103 mEq/L 98-107 Not Available [facility] ( Lab) [address] [place] [address] Aron Zelaya, [place], [address], 10/09/2019 08:36:31 10/08/1910/08/2019 CMP, serum or plasm a CO2 26 mmol/ L 23-33 Not Available [facility] ([facility]) [address] [place] [address] Aron Zelaya, [place], [address], 10/09/2019 08:36:31 10/08/1910/08/2019 CMP, serum or plasm a total protein 7.6 g/dL 6.4-7. 9 Not Available [facility] ([facility]) [address] [place] [address] Aron Zelaya, [place], [address], 10/09/2019 08:36:31 10/08/1910/08/2019 CMP, serum or plasm a albumin 4.0 g/dL 3.8-4. 9 Not Available [facility] ([facility]) [address] [place] [address] Aron Zelaya, [place], [address], 10/09/2019 08:36:31 10/08/19 20 10/08/2019 CMP, serum or plasm a globulin 3.6 g/dL 2.0-4. 0 Not Available [facility] ([facility]) [address] [place] [address] Aron Zelaya, [place], [address], 10/09/2019 08:36:31 10/08/19 20 10/08/2019 CMP, serum or plasm a eGFR 120 mL/mi n/1.7 3m2 >60 Not Available [facility] ([facility]) [address] [place] [address] Aron Zelaya, [place], [address], 10/09/2019 08:36:31 10/08/19 20 10/08/2019 CMP, serum or plasm a eGFR non- 99 mL/mi n/1.7 3m2 >60 Not Available [facility] ([facility]) [address] [place] [address] Aron Zelaya, [place], [address], 10/09/2019 08:36:31 10/08/19 20 10/08/2019 CMP, serum or plasm a albumin/glob ulin 1.1 ratio 1.2-2. 2 low Not Available [facility] ([facility]) [address] [place] [address] Aron Zelaya, [place], [address], 10/09/2019 08:36:31 10/08/19 20 10/08/2019 CMP, serum or plasm a anion gap 14 mEq/L 9-14 Not Available [facility] ([facility]) [address] [place] [address] Aron Zelaya, [place], [address], 10/09/2019 08:36:31 11/08/19 20 11/08/2019 CMP, serum or plasm a Na 140 mmol/ L 136-14 5 Not Available [facility] [address] [facility] [address], [place], [address], 11/08/2019 15:34:50 11/08/19 20 11/08/2019 CMP, serum or plasm a K 3.6 mmol/ L 3.5-5. 1 Not Available [facility] [address] [facility] [address], [place], [address], 11/08/2019 15:34:50 11/08/19 20 11/08/2019 CMP, serum or plasm a cL 103 mmol/ L 98-107 Not Available [facility] [address] [facility] [address], [place], [address], 11/08/2019 15:34:50 11/08/19 20 11/08/2019 CMP, serum or plasm a CO2 29 mmol/ L 21-32 Not Available [facility] [address] [facility] [address], [place], [address], 11/08/2019 15:34:50 11/08/19 20 11/08/2019 CMP, serum or plasm a Ca 9.7 mg/dL 8.5-10 .1 Not Available [facility] [address] [facility] [address], [place], [address], 11/08/2019 15:34:50 11/08/19 20 11/08/2019 CMP, serum or plasm a BUN 11 mg/dL 7-18 Not Available [facility] [address] [facility] [address], [place], [address], 11/08/2019 15:34:50 11/08/19 20 11/08/2019 CMP, serum or plasm a creat 0.8 mg/dL 0.6-1. 0 Not Available [facility] [address] [facility] [address], [place], [address], 11/08/2019 15:34:50 11/08/19 20 11/08/2019 CMP, serum or plasm a GFR 91 mL/mi n/1.7 3_sqm -60 GFR - Refer ence range for estim ated GFR is >60 mL/mi n/1.7 3 squar e meter s. The GFR formu la is valid only for adult s betwe en ages 18 & 70 years of age. If patie nt is Afric an-Am gisela n, multi ply GFR resul t by 1.212 [facility] e: Natio nal Kidne y Disea se Progr am, Rati onale for use and repor ting of estim ated GFR . Not Available [facility] [address] [facility] [address], [place], [address], 11/08/2019 15:34:50 11/08/19 20 11/08/2019 CMP, serum or plasm a glucose 75 mg/dL 74-106 Not Available [facility] Out[facility] [address] [facility] [address], [place], [address], 11/08/2019 15:34:50 11/08/19 20 11/08/2019 CMP, serum or plasm a TP-S 9.3 g/dL 6.4-8. 2 high Not Available [facility] [address] [facility] [address], [place], [address], 11/08/2019 15:34:50 11/08/19 20 11/08/2019 CMP, serum or plasm a alb-S 4.7 g/dL 3.4-5. 0 Not Available [facility] [address] [facility] [address], [place], [address], 11/08/2019 15:34:50 11/08/19 20 11/08/2019 CMP, serum or plasm a bilit 0.9 mg/dL -<1.0 Not Available [facility] [address] [facility] [address], [place], [address], 11/08/2019 15:34:50 11/08/19 20 11/08/2019 CMP, serum or plasm a alkaline phosphotase 131 U/L 50-136 Not Available [facility] [address] [facility] [address], [place], [address], 11/08/2019 15:34:50 11/08/19 20 11/08/2019 CMP, serum or plasm a ALT 506 U/L 30-65 high Not Available [facility] [address] [facility] [address], [place], [address], 11/08/2019 15:34:50 11/08/19 20 11/08/2019 CMP, serum or plasm a anion gap 8.0 mmol/ L 3-13 Not Available [facility] [address] [facility] [address], [place], [address], 11/08/2019 15:34:50 11/08/19 20 11/08/2019 CMP, serum or plasm a AST 148 U/L 15-37 high Not Available [facility] [address] [facility] [address], [place], [address], 11/08/2019 15:34:50 11/08/19 20 11/08/2019 CMP, serum or plasm a B/cr ratio 13.8 Not Available [facility] Out[facility] [address] [facility] [address], [place], [address], 11/08/2019 15:34:50 11/08/19 20 11/08/2019 drug scree n, urine amphet NEGATI VE Not Available [facility] [address] [facility] [address], [place], [address], 11/08/2019 15:34:52 11/08/19 20 11/08/2019 drug scree n, urine kyle NEGATI VE Not Available [facility] [address] [facility] [address], [place], [address], 11/08/2019 15:34:52 11/08/19 20 11/08/2019 drug scree n, urine bzo NEGATI VE Not Available [facility] [address] [facility] [address], [place], [address], 11/08/2019 15:34:52 11/08/19 20 11/08/2019 drug scree n, urine jazlyn NEGATI VE Not Available [facility] [address] [facility] [address], [place], [address], 11/08/2019 15:34:52 11/08/19 20 11/08/2019 drug scree n, urine opi NEGATI VE Not Available [facility] [address] [facility] [address], [place], [address], 11/08/2019 15:34:52 11/08/19 20 11/08/2019 drug scree n, urine pcp NEGATI VE Not Available [facility] [address] [facility] [address], [place], [address], 11/08/2019 15:34:52 11/08/19 20 11/08/2019 drug scree n, urine THC POSITI VE Not Available [facility] [address] [facility] [address], [place], [address], 11/08/2019 15:34:52 11/08/19 20 11/08/2019 PT/IN R protime 11.3 secs. 9.12-1 1.68 INR Thera peuti c Range s: Proph ylaxi s 2.0-3 .0 Preve ntion of Syste tamia embol ism from atria l fibri llati on 2.0-3 .0 Myoca rdial Infar ction 2.0-3 .0 Mecha nical prost hetic heart valve s 2.5-3 .5 Recur rent syste tamia embol ism 2.5-3 .5 Not Available [facility] [address] [facility] [address], [place], [address], 11/08/2019 15:40:25 11/08/19 20 11/08/2019 PT/IN R INR 1.09 0.89-1 .09 Not Available [facility] [address] [facility] [address], [place], [address], 11/08/2019 15:40:25 11/08/19 20 11/08/2019 marly ol, blood ETOH <3.0 mg/dL -<3.[address] [facility] Outpatient Lab [address] [facility] [address], [place], [address], 11/08/2019 15:40:58 11/08/19 20 11/08/2019 CBC WBC 7.2 10*3/ uL 4.8-10 .8 Not Available [facility] [address] [facility] [address], [place], [address], 11/08/2019 15:42:20 11/08/19 20 11/08/2019 CBC RBC 5.44 10*6/ uL 4.20-5 .40 high Not Available [facility] [address], [place], [address], 11/08/2019 15:42:20 11/08/19 20 11/08/2019 CBC HGB 15.0 g/dL 12.0-1 6.0 Not Available [facility] [address], [place], [address], 11/08/2019 15:42:20 11/08/19 20 11/08/2019 CBC HCT 44.6 % 37-47 Not Available [facility] [address], [place], [address], 11/08/2019 15:42:20 11/08/19 20 11/08/2019 CBC MCV 82.0 fL 81-99 Not Available [facility] [address], [place], [address], 11/08/2019 15:42:20 11/08/19 20 11/08/2019 CBC MCH 27.6 pg 27.0-3 1.0 Not Available [facility] [address], [place], [address], 11/08/2019 15:42:20 11/08/19 20 11/08/2019 CBC MCHC 33.6 g/dL 33.0-3 7.0 Not Available [facility] [address], [place], [address], 11/08/2019 15:42:20 11/08/19 20 11/08/2019 CBC RDW 13.1 % 11.5-1 4.5 Not Available [facility] [address], [place], [address], 11/08/2019 15:42:20 11/08/19 20 11/08/2019 CBC plt 274 10*3/ uL 140-40 0 Not Available [facility] [address] [facility] [address], [place], [address], 11/08/2019 15:42:20 11/08/19 20 11/08/2019 CBC ne% 56.0 % 42.2-7 5.2 Not Available [facility] [address] [place] [address] [address], [place], [address], 11/08/2019 15:42:20 11/08/19 20 11/08/2019 CBC ly% 29.1 % 20.5-5 1.1 Not Available [facility] [address] [place] [address] [address], [place], [address], 11/08/2019 15:42:20 11/08/19 20 11/08/2019 CBC MO% 10.1 % 0.0-5 high Not Available [facility] [address] [place] [address] [address], [place], [address], 11/08/2019 15:42:20 11/08/19 20 11/08/2019 CBC eo% 2.6 % 0-3 Not Available [facility] [address] [place] [address] [address], [place], [address], 11/08/2019 15:42:20 11/08/19 20 11/08/2019 CBC ba% 0.7 % 0.1-1. 0 Not Available [facility] [address] [place] [address] [address], [place], [address], 11/08/2019 15:42:20 11/08/19 20 11/08/2019 CBC immature granulocytes % 1.5 Not Available [facility] Out[facility] Lab [address] [place] [address] [address], [place], [address], 11/08/2019 15:42:20 11/08/19 20 11/08/2019 CBC immature granulocytes # 0.1 Not Available [facility] Out[facility] Lab [address] [place] [address] [address], [place], [address], 11/08/2019 15:42:20 11/08/19 20 11/08/2019 CBC ne# 4.04 10*3/ uL 2.2-6. 5 Not Available [facility] [address] [facility] [address], [place], [address], 11/08/2019 15:42:20 11/08/19 20 11/08/2019 CBC ly# 2.10 10*3/ uL 1.2-3. 4 Not Available [facility] [address] [facility] [address], [place], [address], 11/08/2019 15:42:20 11/08/19 20 11/08/2019 CBC MO# 0.73 10*3/ uL 0.1-0. 6 high Not Available [facility] [address] [facility] [address], [place], [address], 11/08/2019 15:42:20 11/08/19 20 11/08/2019 CBC eo# 0.19 10*3/ uL 0.0-0. 2 Not Available [facility] [address] [facility] [address], [place], [address], 11/08/2019 15:42:20 11/08/19 20 11/08/2019 CBC ba# 0.05 10*3/ uL 0.0-0. 1 Not Available [facility] [address] [facility] [address], [place], [address], 11/08/2019 15:42:20 11/08/19 20 11/08/2019 beta- HCG, quant itati ve, serum or plasm a qnhcg <1 mIU/m L 0-6 WEEKS POST LMP: APPRO X. hCG RANGE (mIU/ ML) 3-4 WEEKS 9- 130 4-5 WEEKS 75- 2,600 5-6 WEEKS 850- 20,80 0 6-7 WEEKS 4,000 -100, 000 7-12 WEEKS 11,50 0-289 ,000 12-16 WEEKS 18,30 0-137 ,000 16-29 WEEKS 1,400 - 53,00 0 2ND TRIME STER 29-41 WEEKS 940- 60,00 0 3RD TRIME STER This test is not inten ded for use as a surro gate brisa bello in the diagn osis of monit ori the treat ment of jesus jerome nts. Not Available [facility] [address], [place], [address], 11/08/2019 15:50:08 11/08/19 20 11/09/2019 HIV 1+2 AB + HIV 1 p24 Ag, quali tativ e immun oassa y, serum hivabsc REPORT HIV 1/2 ANTIG EN/AN TIBOD Y,FOU RTH GENER ATION W/RFL PERFO RMING SITE ID*: IG TEST NAME FLAG RESUL T UNITS OF MEASU RE ===== ==== ==== ===== = ===== ===== ===== = HIV AG/AB , 4TH GEN NON-R EACTI VE REFER ENCE RANGE : NON-R EACTI VE RESUL T COMME NT: HIV-1 antig en and HIV-1 /HIV- 2 antib odies were not detec danny. There is no labor atory evide nce of HIV infec tion. PLEAS E NOTE: This infor matio n has been discl osed to you from recor ds whose confi denti ality may be prote cted by state law. If your state requi res such prote ction , then the state law prohi bits you from isaak g any furth er discl osure of the infor matio n witho ut the speci fic writt en conse nt of the perso n to whom it perta ins, or as other george permi tted by law. A gener al autho rizat ion for the relea se of medic al or other infor matio n is NOT suffi cient for this purpo se. For addit ional infor matio n pleas e refer to http: //[facility] catmarlee n.que stdia gnost ics.c om/fa q/FAQ 106 (This link is being provi ded for infor matio nal/ educa dmitriy l purpo ses only. ) The perfo rmanc e of this assay has not been clini ryan valid ated in patie nts less than 2 years old. * PERFO ING SITE LEGEN D FOR THIS REPOR T: IG [facility] [address] [facility]. [place] [phone] NADEEN LOPEZ MD Not Available [facility] [address] [facility] [address], [place], [address], 11/09/2019 09:50:06 11/08/19 20 11/09/2019 hepat itis A Ab, total , serum HAV REPORT HEPAT [facility]IS A AB, [facility] TEST NAME FLAG RESUL T UNITS OF MEASU RE ===== ==== ==== ===== = ===== ===== ===== = HEPAT ITIS A AB, TOTAL A REACT MARIUSZ REFER ENCE RANGE : NON-R EACTI VE RESUL T COMME NT: For addit ional infor michelle licea e refer to http: //[email or web address] [place].jory stdia gnost ics.c om/fa q/FAQ (This link is being provi ded for infor matio nal/ educa dmitriy l purpo ses only. ) * [facility] SITE LEGEN D FOR THIS REPOR T: IG [facility] [address] [place] [phone] NADEEN LOPEZ MD Not Available [facility] [address] [facility] [address], [place], [address], 11/09/2019 14:39:06 11/08/19 20 11/10/2019 hepat itis C virus RNA, quant , PCR, serum or plasm a HCV REPORT HCV RNA, QUANT ITATI VE REAL TIME PCR [facility] SITE ID*: IG TEST NAME FLAG RESUL T UNITS OF MEASU RE ===== ==== ==== ===== = ===== ===== ===== = HCV RNA, [place] [address] IU/mL REFER ENCE RANGE : NOT DETEC DANNY HCV RNA, QUANT ITATI VE REAL TIME PCR H 4.45 Log IU/mL REFER ENCE RANGE : NOT DETEC DANNY RESUL T COMME NT: This test was perfo rmed using Real- Time Polym erase Chain React ion. Repor table Range : 15 IU/mL to 100,0 00,00 0 IU/mL (1.18 Log IU/mL to 8.00 Log IU/mL ). The harry tical perfo rmanc e irwin cteri stics of this assay have been deter mined by [employer]. The modif icati ons have not been clear ed or appro maximo by the FDA. This assay has been valid ated pursu ant to the CLIA regul ation s and is used for clini joann purpo ses. For more infor raimundo barahona on this test, go to: http: //[facility] davis [place].jory stdia gnost ics.c om/fa q/FAQ 22v1 (This link is being provi ded for infor raimundo nal/ educa dmitriy l purpo ses only. ) * PERFO RMING SITE LEGEN D FOR THIS REPOR T: IG [facility] [address] [place] [phone] NADEEN LOPEZ MD Not Available [facility] Lab [address], [place], [address], 11/10/2019 14:09:28 11/08/19 20 11/08/2019 liver fibro sis - actit est shahla fibr LIVER FIBRO SIS, FIBRO TEST ACTIT EST PANEL PERFO RMING SITE ID*: EZ TEST NAME FLAG RESUL T UNITS OF MEASU RE ===== ==== ==== ===== = ===== ===== ===== = FIBRO SIS SCORE 0.51 FIBRO SIS STAGE F2 FIBRO SIS INTER PRETA TION SEE NOTE RESUL T COMME NT: moder ate fibro sis Fibro Test Score (f) Metav ir Score f>=0 and f<=0. 21 : F0 (no fibro sis) f>0.2 1 and f<=0. 27 : F0-F1 (no fibro sis) f>0.2 7 and f<=0. 31 : F1 (mini mal fibro sis) f>0.3 1 and f<=0. 46 : F1-F2 (mini mal fibro sis) f>0.4 8 and f<=0. 58 : F2 (mode rate fibro sis) f>0.5 8 and f<=0. 72 : F3 (adva nced fibro sis) f>0.7 2 and f<=0. 74 : F3-F4 (adva nced fibro sis) f>0.7 4 and f<=1. 00 : F4 (harvinder re fibro sis) NECRO INFLA MMAT ACT SCORE 0.94 NECRO INFLA MMAT ACT GRADE A3 NECRO INFLA MMAT INTER P SEE NOTE RESUL T COMME NT: sever e activ ity ActiT est Score (a) Metav ir Score a>=0 and a<=0. 17 : A0 (no activ ity) a>0.1 7 and a<=0. 29 : A0-A1 (no activ ity) a>0.2 9 and a<=0. 36 : A1 (mini mal activ ity) a>0.3 6 and a<=0. 52 : A1-A2 (mini mal activ ity) a>0.5 2 and a<=0. 60 : A2 (sign ifica nt activ ity) a>0.6 0 and a<=0. 62 : A2-A3 (sign ifica nt activ ity) a>0.6 2 and a<=1. 00 : A3 (harvinder re activ ity) ALPHA 2 MACRO GLOBU RAMAN H 390 mg/dL REFER ENCE RANGE : 106-2 79 HAPTO GLOBI N 58 mg/dL REFER ENCE RANGE : 43-21 2 APOLI POPRO TEIN A1 142 mg/dL REFER ENCE RANGE : 101-1 98 TOTAL BILIR UBIN 0.8 mg/dL REFER ENCE RANGE : 0.2-1 .2 GGT H 49 U/L REFER ENCE RANGE : 3-40 ALT H 351 U/L REFER ENCE RANGE : 6-29 [place] [id number] FOOTN OTE SEE NOTE RESUL T COMME NT: The relia bilit y of resul ts is depen dent on compl iance with the prean alyti joann and harry tical condi tions recom hieu d by Bio[employer] edict mariusz. The tests have to be defer red for: acute hemol ysis, acute hepat itis, acute infla mmati on, extra hepat ic gina stasi s. The advic e of a speci alist shoul d be sough t for inter preta tion in chron ic hemol ysis and Gilbe rt's syndr ome. The test inter preta tion is not valid ated in liver trans plant patie nts. [place] danny extre me value s of one of the compo nents shoul d lead to cauti on in inter preti ng the resul ts. In case of disco rdanc e betwe en a biops y resul t and a test, it is recom hieu d to seek the advic e of a speci alist . The cause s of these disco rdanc es could be due to a flaw of the test or to a flaw in the biops y: i.e. a liver biops y has a 33% varia bilit y rate for one fibro sis stage . Fibro Test is inter preta ble for chron ic hepat itis B and C, alcoh olic and non alcoh olic steat osis. ActiT est is inter preta ble for chron ic hepat itis B and C. The perfo rmanc e irwin cteri stics have been deter mined by [facility] Hernan bowens [facility] . It has not been clear ed or appro maximo by the U.S. Food and Drug Admin istra tion. Perfo rmanc e irwin cteri stics refer to the harry tical perfo rmanc e of the test. [facility] , [facility], the assoc iated logo, Hernan bowens and all assoc iated [facility] allen are the nichole tered trade allen of [facility]. All third democrat allen - (R) and (TM) - are the prope rty of their respe ctive central supply nurse s. (C) 1999- 2013 [facility] Inc[employer] porat ed. All right s reser maximo. * PERFO RMING SITE LEGPAVEL D FOR THIS REPOR T: [facility] [address] [address] [address] Carlito BURTON,PHD ,AWAIS Not Available [facility] [address] [facility] [address], [place], [address], 11/10/2019 23:09:48 11/08/19 20 11/13/2019 hepat itis B surfa ce Ab, quali tativ e, serum hbsab REPORT HEPAT ITIS B SURFA CE AB IMMUN ITY, QN [facility] SITE ID*: IG TEST NAME FLAG RESUL T UNITS OF MEASU RE ===== ==== ==== ===== = ===== ===== ===== = HEPAT ITIS B SURFA CE AB IMMUN ITY, QN L <5 mIU/m L REFER ENCE RANGE : > OR = 10 RESUL T COMME NT: Patie nt does not have immun ity to hepat itis B virus . For addit ional infor raimundo nmichelle e refer to http: //[facility] [place].que stdia gnost ics.c om/fa q/FAQ 105 (This link is being provi ded for infor matmarlee nal/ educa dmitriy l purpo ses only) . * [facility] LEGEN D FOR THIS REPOR T: IG [facility] [address] [place] [address] NADEEN LOPEZ MD Not Available [facility] [address] [facility] [address], [place], [address], 11/13/2019 11:14:27 11/08/19 20 11/13/2019 HBsAg (hepa titis B surfa ce Ag), serum HBsAg REPORT HEPAT ITIS B SURFA CE ANTIG EN W/REF L CONFI RM [facility] SITE ID*: IG TEST NAME FLAG RESUL T UNITS OF MEASU RE ===== ==== ==== ===== = ===== ===== ===== = HEPAT ITIS B SURFA CE ANTIG EN NON-R EACTI VE REFER ENCE RANGE : NON-R EACTI VE * [facility] SITE LEGEN D FOR THIS REPOR T: IG [facility] [address] [place] [address] NADEEN LOPEZ MD Not Available [facility] [address], [place], [address], 11/13/2019 11:14:29 11/08/19 20 11/13/2019 hepat itis C genot ype, serum or plasm a hepcdna REPORT HEPAT ITIS C VIRAL RNA GENOT YPE, LIPA( R) PERFO RMING SITE ID*: [facility] TEST NAME FLAG RESUL T UNITS OF MEASU RE ===== ==== ==== ===== = ===== ===== ===== = HEPAT ITIS C VIRAL RNA GENOT YPE, LIPA( R) 1a RESUL T COMME NT: The metho d used in this test is RT-PC R and rever se hybri dizat ion (Line Probe ) of the 5' UTR and core regio n of the HCV genom e. The harry tical perfo rmanc e irwin cteri stics of this assay have been deter mined by [facility] Infec tious Disea se. The modif icati ons have not been clear ed or appro maximo by the FDA. This assay has been valid ated pursu ant to the CLIA regul ation s and is used for clini joann purpo ses. For addit ional infor michelle licea e refer to http: //[facility] [place].Que stDia gnost ics.c om /faq/ HCVGe notyp ing (This link id being provi ded for infor matmarlee nal/ educa dmitriy l purpo ses only. ) * PERFO RMING SITE LEGEN D FOR THIS REPOR T: [facility] [address] [place] [address] Carlito GUDINO Not Available [facility] [address], [place], [address], 11/13/2019 22:19:05 11/12/19 20 11/13/2019 pap, LB + refle x to HR HPV if ASC-U TP reflex HPV ASCUS Abnorm al abnormal ----- ----- ----- ----- -SPEC IMEN PART- ----- ----- ----- --- A. 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 SPECI MEN ADEQU ACY:S atisf actor y for evalu ation . Endoc ervic al/tr ansfo rmati on zone compo nent prese nt. Not Available [facility] (Lab) [facility] , [place], [address], 11/15/2019 16:04:13 11/12/1911/13/2019 STI panel verna - swab Normal normal KELLEY DA SPECI ES: Negat mariusz This test detec ts the prese nce of Kelley da albic ans, Kelley da glabr suman, Kelley da tropi calis and Kelley da parap edirdre is. Metho d: Real- time PCR. This test was devel oped and its perfo rmanc e irwin cteri stics deter mined by [facility]. It has not been clear ed or appro maximo by the U.S. Food and Drug Admin istra tion (FDA) . The labor atory is regul ated under CLIA as quali fied to perfo rm high- compl exity testi ng. This test is used for clini joann purpo ses. It shoul d not be regar ded as inves tigat ional or for resea rch. Not Available [facility] (Lab) [address], [place], [address], 11/15/2019 16:04:14 11/12/19 20 11/13/2019 STI panel gardnerella Normal normal GARDN ERELL A VAGIN [place]: Negat mariusz Metho d: Real- time PCR. This test was devel oped and its perfo rmanc e irwin cteri stics deter mined by [facility] [email or web address]. It has not been clear ed or appro maximo by the U.S. Food and Drug Admin istra tion (FDA) . The labor atory is regul ated under CLIA as quali fied to perfo rm high- compl exity testi ng. This test is used for clini joann purpo ses. It shoul d not be regar ded as inves tigat ional or for resea rch. Not Available [facility] (Lab) [address], [place], [address], 11/15/2019 16:04:14 11/12/19 20 11/13/[address]/NG Normal normal CHLAM YDIA TRACH OMATI S: Negat mariusz NEISS ERIA GONOR RHOEA E: Negat mariusz Testi ng perfo rmed by the FDA-a pprov ed Holog ic APTIM A COMBO 2 Assay . The APTIM A COMBO 2 Assay is desig charity to detec t the prese nce of Chlam ydia and Neiss eria in the follo wing speci mens colle cted in Aptim a trans port media or Prese rvCyt Solut ion: endoc ervic al and male ureth ral speci mens, clini hollis colle cted vagin al swab speci mens, Prese rvCyt Solut ion liqui d Pap speci mens, femal e and male urine speci mens, clini hollis- colle cted throa t and recta l sampl es. Perfo rmanc e with speci mens other than those liste d has not been evalu ated and resul ts must be inter prete d with cauti on and corre lated with clini joann findi ngs. Note: The perfo rmanc e of this assay has not been evalu ated in perso ns less than 14 years of age. Not Available [facility] (Lab) [address], [place], [address], 11/15/2019 16:04:14 11/12/19 20 11/13/2019 STI panel trichomonas vaginalis addon - swab Normal normal Trich omona s vagin [place]: Negat mariusz Testi ng perfo rmed by the FDA-a pprov ed Holog ic APTIM A Trich omona s vagin [place] Assay . The APTIM A Trich omona s vagin [place] Assay is desig charity to detec t the prese nce of T. vagin [place] in the follo wing speci mens colle cted in Aptim a trans port media or Prese rvCyt Solut ion: clini hollis- colle cted endoc ervic al and vagin al swab speci mens and Prese rvCyt liqui d Pap speci mens. Perfo rmanc e with speci mens other than those liste d has not been evalu ated and resul ts must be inter prete d with cauti on and corre lated with clini joann findi ngs. The sensi tivit y of this assay may be decre ased when perfo rmed using speci mens from oral or anal sourc es. For urine speci mens, the perfo rmanc e irwin cteri stics of this test were deter mined by [email or web address] [email or web address], as requi red by CLIA '88 regul ation s. It has not be clear ed or appro maximo for speci fic uses by the US Food \T\ Drug Admin istra tion (FDA) . The FDA has deter mined that such clear ance or appro radha is not neces fang. This test is used for clini joann diagn ostic purpo se. It shoul d not be regar ded as inves tigat ional or for resea rch. Perfo rmanc e of this test with speci mens other than those liste d above has not been evalu ated and resul ts must be inter prete d with cauti on and corre lated with clini joann findi ngs. Note: The perfo rmanc e of this assay has not been evalu ated in perso ns less than 14 years of age. Not Available [facility] (Lab) [address] [place] [address] Aron Zelaya, [place], [address], 11/15/2019 16:04:14 11/12/19 20 11/13/2019 patho logy study pdfreport PROPAT H Not Available [facility] (La [facility]) [address] [place] [address] Aron Zelaya, [place], [address], 11/15/2019 16:04:15 11/12/19 20 11/12/2019 CMP, serum or plasm a glucose 77 mg/dL 68-110 Fasti ng Gluco se Refer ence Range : Predi abete s 100 - 125 mg/dL Diabe slick >/= 126 mg/dL Gesta dmitriy l diabe slick > 92 mg/dL Not Available [facility] (Lab) [address] [place] [address] Aron Zelaya, [place], [address], 11/15/2019 17:44:28 11/12/19 20 11/12/2019 CMP, serum or plasm a BUN 7 mg/dL 7-19 Not Available [facility] (L ab) [address] [place] [address] Aron Zelaya, [place], [address], 11/15/2019 17:44:28 11/12/19 20 11/12/2019 CMP, serum or plasm a creatinine 0.8 mg/dL 0.6-1. 2 Not Available [facility] (Lab) [address] [place] [address] Aron Zleaya, [place], [address], 11/15/2019 17:44:28 11/12/19 20 11/12/2019 CMP, serum or plasm a BUN/creat ratio 9 ratio 10-21 low Not Available [facility] (Lab) [address] [place] [address] Aron Zelaya, [place], [address], 11/15/2019 17:44:28 11/12/19 20 11/12/2019 CMP, serum or plasm a bilirubin, total 0.90 mg/dL 0.27-1 .23 Not Available [facility] (Lab) [address] [place] [address] Aron Zelaya, [place], [address], 11/15/2019 17:44:28 11/12/19 20 11/12/2019 CMP, serum or plasm a AST (SGOT) 39 U/L 10-34 high Not Available [facility] (Lab) [address] [place] [address] , [place], [address], 11/15/2019 17:44:28 11/12/19 20 11/12/2019 CMP, serum or plasm a ALT (SGPT) 134 U/L 7-39 high Not Available [facility] (Lab) [address] [place] [address] , [place], [address], 11/15/2019 17:44:28 11/12/19 20 11/12/2019 CMP, serum or plasm a alkaline phosphatase 88 U/L 26-104 Not Available [facility] (Lab) [address] [place] [address] Aron Zelaya, [place], [address], 11/15/2019 17:44:28 11/12/19 20 11/12/2019 CMP, serum or plasm a calcium 10.8 mg/dL 8.9-10 .3 high Not Available [facility] (Lab) [address] [place] [address] , [place], [address], 11/15/2019 17:44:28 11/12/19 20 11/12/2019 CMP, serum or plasm a sodium 139 mEq/L 136-14 5 Not Available [facility] (Lab) [address] [place] [address] Aron Zelaya, [place], [address], 11/15/2019 17:44:28 11/12/19 20 11/12/2019 CMP, serum or plasm a potassium 3.7 mEq/L 3.5-5. 1 Not Available [facility] (Lab) [address] [place] [address] Aron Zelaya, [place], [address], 11/15/2019 17:44:28 11/12/19 20 11/12/2019 CMP, serum or plasm a chloride 102 mEq/L 98-107 Not Available [facility] ( Lab) [address] [place] [address] Aron Zelaya, [place], [address], 11/15/2019 17:44:28 11/12/19 20 11/12/2019 CMP, serum or plasm a CO2 27 mmol/ L 23-33 Not Available [facility] (Lab) [address] [place] [address] Aron Zelaya, [place], [address], 11/15/2019 17:44:28 11/12/19 20 11/12/2019 CMP, serum or plasm a total protein 8.3 g/dL 6.4-7. 9 high Not Available [facility] (Lab) [address] [place] [address] Aron Zelaya, [place], [address], 11/15/2019 17:44:28 11/12/19 20 11/12/2019 CMP, serum or plasm a albumin 4.9 g/dL 3.8-4. 9 Not Available [facility] (Lab) [address] [place] [address] Aron Zelaya, [place], [address], 11/15/2019 17:44:28 11/12/19 20 11/12/2019 CMP, serum or plasm a globulin 3.4 g/dL 2.0-4. 0 Not Available [facility] (Lab) [address] [place] [address] Aron Zealya, [place], [address], 11/15/2019 17:44:28 11/12/19 20 11/12/2019 CMP, serum or plasm a eGFR 108 mL/mi n/1.7 3m2 >60 Not Available [facility] (Lab) [address] [place] [address] Aron Zelaya, [place], [address], 11/15/2019 17:44:28 11/12/19 20 11/12/2019 CMP, serum or plasm a eGFR non- 89 mL/mi n/1.7 3m2 >60 Not Available [facility] (Lab) [address] [place] [address] Aron Zelaya, [place], [address], 11/15/2019 17:44:28 11/12/19 20 11/12/2019 CMP, serum or plasm a albumin/glob ulin 1.4 ratio 1.2-2. 2 Not Available [facility] (Lab) [address] [place] [address] Aron Zelaya, [place], [address], 11/15/2019 17:44:28 11/12/19 20 11/12/2019 CMP, serum or plasm a anion gap 14 mEq/L 9-14 Not Available [facility] (Lab) [address] , [place], [address], 11/15/2019 17:44:28 11/12/19 20 11/12/2019 hepat itis C Ab, serum hepatitis C antibody Reacti ve non-re active abnormal React mariusz antib inna to hepat itis C indic ates recen t or past infec tion with hepat itis C. Confi rmati on with HCV PCR has been refle xed. Not Available [facility] (Lab) [address] [place] [address] , [place], [address], 11/15/2019 17:44:29 11/12/19 20 11/12/2019 hepat itis C RNA, quant , PCR, serum HCV RNA, PCR quant 746 IU/mL high Not Available [facility] ([facility]) [address] [place] [address] , [place], [address], 11/15/2019 17:44:29 11/12/19 20 11/12/2019 hepat itis C RNA, quant , PCR, serum HCV viral log 2.873 log_I U/mL high Not Available [facility] (Lab) [address] [place] [address] , [place], [address], 11/15/2019 17:44:29 11/12/19 20 11/12/2019 hepat itis C RNA, quant , PCR, serum HCV qualitative interp POSITI VE abnormal Range of quant itati on is 15-10 0,000 ,000 IU/mL , (1.17 6-8.0 00 log IU/mL ). Sampl es with HCV RNA detec danny below the limit of quant itati on are repor danny as <15 IU/mL . Assay metho dolog y is polym erase chain react ion (PCR) using the Leigh Ryan 8800 syste m. The expec danny resul t is NOT DETEC DANNY. UNLES S OTHER GEORGE INDIC ATED, ALL TESTI NG PERFO RMED AT [facility] [address] [place] [address] LABOR ATORY DIREC TOR: TOAN KENNEDY M.D. ROSA Rand [id number] [place] [id number] Not Available [facility] (Lab) [address], [place], [address], 11/15/2019 17:44:29 11/26/19 20 11/27/2019 hepat itis B virus core Ab igg, serum hepcoret REPORT HEPAT ITIS B CORE AB TOTAL PERFO [facility] SITE ID*: IG TEST NAME FLAG RESUL T UNITS OF MEASU RE ===== ==== ==== ===== = ===== ===== ===== = HEPAT ITIS B CORE AB TOTAL NON-R EACTI VE REFER ENCE RANGE : NON-R EACTI VE * PERFO [facility] SITE LEGEN D FOR THIS REPOR T: IG [facility] [address] [place] [address] NADEEN LOPEZ MD Not Available [facility] [address], [place], [address], 11/27/2019 09:49:10 09/19/19 20 09/19/2019 US, obste tric, bioph ysica l profi le + non-s tress test PATIEN T NAME: ZENA ELAINE ACCT ID: [id number] DD: 0 16:21: 35 REPORT ID: [id number] DATE OF : 2000 DATE OF EXAM:0 020 14:36 ORDERI NG: KYLE MARTINEZ EXAM DESCRI PTION: US BIO NONST( MFM)_ EXAM: OBSTET RICAL ULTRAS OUND: HISTOR Y:PREG NANT?- -Y DIAGNO SIS? :--O26 .619 . . TECHNI QUE: Transa bdomin al images were obtain ed. COMPAR MARQUITA: 2018 FINDIN GS: There is a single living intrau terine pregna ncy in cephal ic positi on. The placen mich locati on is fundal . There is no eviden ce of placen ta previa . The internal consultant al os is closed and the cervic al - length appear s normal . Intrac ranial anatom y previo usly seen. The stomac h is visual ized. The urinar y bladde r is visual ized. The visual ized portio n of the kidney s have a normal appear ance. The cord insert ion was previo usly seen. 3 vessel CORD previo usly seen. cardia c activi ty is identi fied with a heart rate of 141 beats/ min. Cardia c anatom y previo usly seen. spine previo usly seen. The amniot ic fluid volume appear s normal . moveme nts 2, breath ing 2, tone 2, amniot ic fluid volume 2; biophy sical profil e 8 of 8. The matern al adnexa could not be visual ized due to overly ing struct ures and bowel gas, limiti ng visual izatio n. measur ements are as follow s: Bipari etal diamet er 8.2 centim eters. Head circum ferenc e 30.7 centim eters. Abdomi nal circum ferenc e 29.3 centim eters. Femur length 6.4 centim eters. These number s result s in an estima danny gestat ional - age of 33 weeks, 3 days by ultras ound, for an estima danny date of delive ry of 2019. IMPRES JONAS: Single living intrau terine pregna ncy with an estima danny gestat ional age of 33 weeks, 3 days by ultras ound. ELECTR ONICAL Y SIGNED BY: KYLE JASSO MD 2019 16:21: 35 Report Ends [id number] [facility] [address] , [place], [address], 09/21/2019 00:25:13 09/19/19 20 09/19/2019 US, obste tric PATIEN T NAME: ZENA ELAINE ACCT ID: [id number] DD: 0 16:21: 35 REPORT ID: [id number] DATE OF : 2000 DATE OF EXAM:0 020 14:36 ORDERI NG: KYLE MARTINEZ EXAM DESCRI PTION: US PELVIS PREG(M FM)_ EXAM: OBSTET RICAL ULTRAS OUND: HISTOR Y:PREG NANT?- -Y DIAGNO SIS? :--O26 .619 . . TECHNI QUE: Transa bdomin al images were obtain ed. COMPAR MARQUITA: 2018 FINDIN GS: There is a single living intrau terine pregna ncy in cephal ic positi on. The placen mich locati on is fundal . There is no eviden ce of placen ta previa . The internal consultant al os is closed and the cervic al - length appear s normal . Intrac ranial anatom y previo usly seen. The stomac h is visual ized. The urinar y bladde r is visual ized. The visual ized portio n of the kidney s have a normal appear ance. The cord insert ion was previo usly seen. 3 vessel CORD previo usly seen. cardia c activi ty is identi fied with a heart rate of 141 beats/ min. Cardia c anatom y previo usly seen. spine previo usly seen. The amniot ic fluid volume appear s normal . moveme nts 2, breath ing 2, tone 2, amniot ic fluid volume 2; biophy sical profil e 8 of 8. The matern al adnexa could not be visual ized due to overly ing struct ures and bowel gas, limiti ng visual izatio n. measur ements are as follow s: Bipari etal diamet er 8.2 centim eters. Head circum ferenc e 30.7 centim eters. Abdomi nal circum ferenc e 29.3 centim eters. Femur length 6.4 centim eters. These number s result s in an estima danny gestat ional - age of 33 weeks, 3 days by ultras ound, for an estima danny date of delive ry of 2019. IMPRES JONAS: Single living intrau terine pregna ncy with an estima danny gestat ional age of 33 weeks, 3 days by ultras ound. ELECTR ONICAL Y SIGNED BY: KYLE JASSO MD 2019 16:21: 35 Report Ends [id number] [facility] [address], [place], [address], 09/21/2019 00:25:13 09/25/19 20 09/25/2019 US, obste tric, bioph ysica l profi le + non-s tress test PATIEN T NAME: ZENA ELAINE ACCT ID: [id number] DD: 0 09:04: 16 REPORT ID: [id number] DATE OF : 2000 DATE OF EXAM:0 020 16:09 ORDERI NG: KYLE MARTINEZ EXAM DESCRI PTION: US BIO NONST( MFM)_ EXAM: Biophy sical profil e HISTOR Y: PREGNA NT?--Y DIAGNO SIS? :--O26 .619 TECHNI QUE: Transa bdomin al transd ucers COMPAR MARQUITA: None FINDIN GS: breath ing 2, gross body moveme nts 2, tone 2, amniot ic fluid volume 2 .. JIMBO 12.7 cm Positi on is vertex IMPRES JONAS: Biophy sical profil e 8 of 8. ELECTR ONICAL Y SIGNED BY: KYLE JASSO MD 2019 09:04: 16 Report Ends [id number] [facility] [address] , [place], [address], 09/25/2019 21:34:01 09/26/19 20 09/25/2019 US, obste tric, bioph ysica l profi le No observ ation record ed. BARCODE Crandall Physician Special Projects Manager (Ultrasound) [address] [facility], [place], [address], 09/26/2019 17:29:47 09/26/19 20 09/19/2019 US, obste tric, bioph ysica l profi le No observ ation record ed. BARCODE [facility]andall Physician Special Projects Manager (Ultrasound) [address] [place], [address], 09/26/2019 18:03:39 10/24/19 20 09/25/2019 non-s tress test No observ ation record ed. BARCODE Not Available 2019 12:04:20 10/24/19 20 09/26/2019 non-s tress test No observ ation record ed. [facility] Not Available 2019 16:04:46 10/24/19 20 09/19/2019 non-s tress test No observ ation record ed. [facility] Not Available 2019 16:04:46 11/06/19 20 11/06/2019 US, abdom en PATIEN T NAME: ZENA ELAINE ACCT ID: [id number] DD: 0 15:32: 54 REPORT ID: [id number] DATE OF : 2000 DATE OF EXAM:0 020 15:22 ORDERI NG: VELASQUEZ DIETZ, SHIRAZ Echevarria EXAM DESCRI PTION: US ABDOME N COMPLE TE_ EXAM: US ABDOME N COMPLE TE HISTOR Y: R 10.11 hep c TECHNI QUE: Ultras ound survey of the comple te abdome n perfor med. COMPAR MARQUITA: None FINDIN GS: The liver demons trates a normal appear ance. Surfac e is smooth contou red. No liver lesion is seen. Portal venous flow is in the normal direct ion. The gallbl adder is free of stones and wall thicke leonora. The common duct is nondil ated. The pancre as is partia lly obscur ed, but grossl y normal . Spleen is slight ly enlarg ed measur ing 12.7 cm in length . Aorta is normal in appear ance. There is no visibl e inferi or vena cava abnorm ality. The right kidney measur es 10.2 x 3.8 x 5.5 cm. The left kidney measur es 9.3 x 5.3 x 4.3 cm. There is no hydron ephros is, stone, or solid mass seen. IMPRES JONAS: Mild spleno megaly . Otherw ise negati ve comple te abdomi nal ultras ound. ELECTR ONICAL Y SIGNED BY: JAMES TREJO MD 2019 15:32: 54 Report Ends [email or web address] [facility] [address], [place], [address], 12/10/2019 13:08:15 Result Notes None recorded. Problems Name Problem SNOMED Code Status Onset Date Resolution Date Notes Provider Name and Address Organization Details Recorded Time Dysmenorrhea [id number] Active Not Available [facility] 3 03:05:06 Menstruation finding Active Not Available [facility] 3 03:05:06 Knee pain Active Deniseparker Arita COLD STRIP ROLLER null, [facility] 3 12:55:32 [id number] Active 2018 Julia Casas CMA null, [facility] 9 10:57:14 Chlamydial infection [id number] Active KYLEPAVLE MARTINEZ null, [facility] 0 22:27:51 Viral hepatitis C 66015689 Active KYLE MARTINEZ null, [facility] 0 22:27:51 Cholestasis of 863267957 Active KYLE MARTINEZ null, [facility] 0 22:27:51 Problem Notes None recorded. Procedures Surgical History Date Name Laterality Status Provider Name and Address Organization Details Recorded Time 11/19/19 20 Control Implant Insertion completed KYLE PISANOSE [facility] 11/19/2019 22:28:18 Appendectomy completed Julia Casas CMA [facility] 04/09/2019 11:27:05 Appendectomy completed Rebel Kong [facility] 07/17/2019 12:30:29 Imaging Results Imaging Date Name Status LastModified by Organiz ation Details LastModified Time 09/19/2019 US, obstetric, biophysical profile + non-stress test completed [address] [facility] [address], [place], [address], 09/21/2019 00:25:13 09/19/2019 US, obstetric completed [address] [facility] [address], [place], [address], 09/21/2019 00:25:13 09/25/2019 US, obstetric, biophysical profile + non-stress test completed [address] [facility] [address], [place], [address], 09/25/2019 21:34:01 09/25/2019 US, obstetric, biophysical profile completed [facility] Physician Special Projects Manager (Ultrasound) [address] [place], [address], 09/26/2019 17:29:47 09/19/2019 US, obstetric, biophysical profile completed [facility] Physician Special Projects Manager (Ultrasound) [address] [place], [address], 09/26/2019 18:03:39 09/25/2019 non-stress test completed [facility] In[facility] on not available 10/24/2019 12:04:20 09/26/2019 non-stress test completed [facility] In[employer] on not available 10/24/2019 16:04:46 09/19/2019 non-stress test completed [employer] In[employer] on not available 10/24/2019 16:04:46 11/06/2019 US, abdomen completed [email or web address] [place] [address] [facility] [address] , [place], [address], 12/10/2019 13:08:15 Procedure Notes None recorded. Medical Equipment None Reported. Allergies Allergen ID Allergen Name Allergen Category Reaction Reaction Severity Criticality Documentation Date Start Date Code Code System Note Provider Name and Address Organization Details Recorded Time 870335 tetracain e medicatio n Not available Not available Not available 10/03/20122012 57883 RxNorm burni jaymie Arechiga APRN, GENETICS TEACHER-BC [address] , [place], [address], [place] [facility] 3 12:39:17 224505 Excedrin medicatio n Not available Not available Not available 12/07/2012 83215 0 RxNorm nause raisa Knox,NR HALAL BUTCHER null, [facility] 3 15:30:33 Medications Name Sig Start Date Stop Date Status Note LastModified by Organization Details LastModified Time amoxicill in 500 mg capsule 04/09 completed Not Available Not Available Not Available azithromy jeff 250 mg tablet TK 4 TS PO QD 08/14 completed Not Available Not Available Not Available ibuprofen 800 mg tablet TK 1 T PO Q 8 H PRF PAIN active Not Available Not Available No t Available hydrocodo ne 5 mg-acetam inophen 325 mg tablet TK 1 T PO Q 6 H PRN P active Not Available Not Available No t Available Zomig ZMT 5 mg disintegr ating tablet Take 1 tablet by oral route as needed. 04/09 completed Not Available Not Available Not Available metronida zole 500 mg tablet Take 1 tablet twice a day by oral route for 7 days. 08/14 completed Not Available Not Available Not Available acetamino phen 300 mg-codein e 30 mg tablet TAKE 1 TABLET BY MOUTH EVERY 6 HOURS active Not Available Not Available No t Available sulfameth oxazole 800 mg-trimet hoprim 160 mg tablet 04/09 completed Not Available Not Available Not Available Depo-Medr ol 80 mg/mL suspensio n for injection Take 1 mL by injectio n route. 2012 active Not Available Not Available Not Avai lable meloxicam 7.5 mg tablet 04/09 completed Not Available Not Available Not Available betametha sone acetate and sodium phos 6 mg/mL suspensio n for injection Take 2 mL by injectio n route. 2019 active Not Available Not Available Not Avai lable amoxicill in 875 mg tablet 02/19 completed Not Available Not Available Not Available amitripty line 25 mg tablet Take 1 tablet every day by oral route at bedtime for 30 days. 01/06 completed Not Available Not Available Not Available diphenhyd ramine 50 mg/mL injection solution administ er 0.5 ml IM 2012 active Not Available Not Available Not Avai lable DOK 100 mg capsule TK ONE C PO QD 02/19 completed Not Available Not Available Not Available nalbuphin e 10 mg/mL injection solution Take 1 mL by injectio n route. 2012 active Not Available Not Available Not Avai lable ferrous sulfate 325 mg (65 mg iron) tablet TK 1 T PO QD active Not Available Not Available No t Available clotrimaz ole-betam ethasone 1 %-0.05 % topical cream Apply to the affected and surround ing areas of skin by topical route per day morning and evening for 2 weeks 2009 active called into [facility] Not Available Not Available Not Available promethaz ine 25 mg/mL injection solution Take 1 mL by injectio n route. 04/09 completed Not Available Not Available Not Available promethaz ine 25 mg tablet TK 1 T PO Q 4 H 08/29 completed Not Available Not Available Not Available ursodiol 300 mg capsule 2019 active Not Available Not Available Not Avai lable fluoxetin e 10 mg capsule Take 1 capsule every day by oral route. active Not Available Not Available No t Available hydroxyzi ne HCl 25 mg tablet Take 1 tablet 3 times a day by oral route. active Not Available Not Available No t Available acyclovir 200 mg capsule TAKE 1 CAPSULE BY MOUTH EVERY 4 HOURS (UP TO 5 TIMES DAILY ) FOR 10 DAYS 04/09 completed Not Available Not Available Not Available ibuprofen 600 mg tablet 04/09 completed Not Available Not Available Not Available polyethyl yojana glycol 3350 17 gram/dose oral powder 04/09 completed Not Available Not Available Not Available ondansetr on 4 mg disintegr ating tablet Take 1 tablet every 6 hours by oral route. active Not Available Not Available No t Available sertralin e 50 mg tablet Take 1 tablet every day by oral route. 04/09 completed Not Available Not Available Not Available naproxen 500 mg tablet 04/09 completed Not Available Not Available Not Available amoxicill in 875 mg-potass ium clavulana te 125 mg tablet 04/09 completed Not Available Not Available Not Available Benadryl 25 mg capsule Take 1 capsule every 8 hours by oral route as needed. 2012 active Not Available Not Available Not Avai lable NuvaRing 0.12 mg-0.015 mg/24 hr vaginal Insert 1 vaginal ring every month by vaginal route as directed for 28 days. 01/02 completed Samples x 2 given to patient Not Available Not Available Not Available Ortho Tri-Cycle n LO (28) 0.18 mg/0.215 mg/0.25 mg-25 mcg tablet TAKE 1 TABLET BY MOUTH EVERY DAY 04/09 completed Not Available Not Available Not Available Sprintec (28) 0.25 mg-0.035 mg tablet TAKE 1 TABLET BY MOUTH EVERY DAY active Not Available Not Available No t Available Vitamin 08/29 completed Not Available Not Available Not Available ketorolac 30 mg/mL injection solution Inject 1 mL by intraven ous route. 2012 active Not Available Not Available Not Avai lable Nexplanon 68 mg subdermal implant active Not Available Not Available Not Available Mavyret 100 mg-40 mg tablet active Not Available Not Available No t Available Bonjesta 20 mg-20 mg tablet,im mediate and delay release 08/29 completed Not Available Not Available Not Available Vitals Date Recorded Body height Body mass index (BMI) Body weight Heart rate Systolic blood pressure Diastolic blood pressure Provider Name and Address Organization Details Last Updated DateTime 0 162.56 cm 21.3 kg/m2 15044.1 7 g 105 /min 110 mm[Hg] 82 mm[Hg] Lili Babcock LVN [facility] 0 14:32:39 Date Recorded Body height Body mass index (BMI) Body weight Systolic blood pressure Diastolic blood pressure Provider Name and Address Organization Details Last Updated DateTime 11/12/2019 162.56 cm 20.3 kg/m2 56643.89 966 g 108 mm[Hg] 70 mm[Hg] [facility] 0 16:09:09 Date Recorded Body height Body mass index (BMI) Body weight Heart rate Systolic blood pressure Diastolic blood pressure Provider Name and Address Organization Details Last Updated DateTime 0 162.56 cm 20.1 kg/m2 82465.3 1 g 79 /min 92 mm[Hg] 68 mm[Hg] Pam Mills [facility] 0 11:02:52 Date Recorded Body height Body mass index (BMI) Body weight Body temperature Heart rate Respiratory rate Systolic blood pressure Diastolic blood pressure Provider Name and Address Organization Details Last Updated DateTime 0 162.56 cm 20.1 kg/m2 94724.3 1 g 98 [degF] 778 /min 18 /min 100 mm[Hg] 63 mm[Hg] Aissatou Shaffer LPN [facility] 0 09:44:33 Date Recorded Body height Body mass index (BMI) Body weight Body temperature Heart rate Respiratory rate Systolic blood pressure Diastolic blood pressure Provider Name and Address Organization Details Last Updated DateTime 0 162.56 cm 19.1 kg/m2 04019.7 5 g 98 [degF] 100 /min 14 /min 113 mm[Hg] 73 mm[Hg] Elenita Sears LVN [facility] 0 15:09:47 Social History Question Answer Notes LastModified by Organizat ion Details LastModified Time Tobacco Smoking Status Current Every Day Smoker Julia Casas, SHASHA null, [facility] 04/09/2019 11:24:50 What Is Your Level Of Alcohol Consumption? None Information not available 09/13/2012 If You Are , What Was Your Level Of Alcohol Consumption Prior To ? None Information not available 04/09/2019 How Many Years Have You Consumed Alcohol? 0 Information not available 09/13/2012 Is Anesthesia Consult Planned? Yes Information not available 04/09/2019 Is Blood Transfusion Acceptable In An Emergency? Yes Information not available 04/09/2019 What Is Your Level Of Caffeine Consumption? Occasional 17 Information not available 07/29/2011 What Type Of Diet Are You Following? REGULAR Information not available 04/09/2019 How Many Days In The Past Year Have You Had A Heavy Drinking Consumption (4+ Female, 5+ Male)? 0 Information not available 09/13/2012 Are There Any Guns Present In Your Home? No 17 Information not available 07/29/2011 Illicit Drugs Pre- Meth,cocaine, Herroin Information not available 04/09/2019 Soda Intake 1 - 2 / Day [email or web address] [id number] Information not available 07/29/2011 Smokeless Tobacco No Information not available 09/13/2012 Smokers In Home* Yes esmer Informat ion not available 12/15/2012 Alcohol* No DBA_PATCH_ 1 17 Information not available 07/29/2011 Siblings Yes 17 Information not available 07/29/2011 Illicit Drug Use Marijuana Informat ion not available 04/09/2019 Social History Updated [email or web address] Information not available 04/09/2019 Marital Status Single [facility] Informatio n not available 04/09/2019 How Many Children Do You Have? 0 Information not available 04/09/2019 Seat Belts Used Routinely Yes Information not available 07/29/2011 Are You Sexually Active? Yes Information not available 04/09/2019 Smoke Alarm In Home Yes Information not available 07/29/2011 Are You Passively Exposed To Smoke? No Information not available 09/13/2012 How Much Tobacco Do You Smoke? 0.5 PPD Information not available 04/09/2019 Smoking Pre- 1 PPD Information not available 04/09/2019 Do You Use Sunscreen Routinely? No Information not available 09/13/2012 How Many Years Have You Smoked Tobacco? 0 Information not available 09/13/2012 Sex: Unknown Functional Status Question Answer Note LastModified by Organization D etails LastModified Time What is your exercise level? None [place] [id number] Information not available 04/09/2019 Mental Status None recorded. Family History Relationship Description Onset Age of this Age Resolved Age Notes LastModified by Organization Details LastModified Time Father Depressive disorder previo usly record ed as Depres jonas [email or web address] [id number] Not available 06/28/2013 03:01:06 Paternal Grandmother Alcoholism [email or web address] [id number] Not available 06/28/2013 03:01:06 Maternal Grandmother Alcoholism [id number] [id number] Not available 06/28/2013 03:01:06 Mother Malignant tumor of lung [email or web address] Not available 2018 12:30:27 Mother Neoplasm of brain [email or web address] Not available 2018 12:30:27 Medical History Condition Response Gout N Hyperthyroidism N Breast Cancer N Hernia N Lung Cancer N Blood Clots N Hypothyroidism N Depression N Pneumonia N Aids / HIV + N Varicose veins N Eczema / Hives - frequent Y Bleeding tendencies N OTHER N Diabetes Type 1 N Other - N ADD / ADHD N SKIN DISORDERS N Pyschiatric hospitalizations N Stroke N Liver disease N Bronchitis, frequent N MVA (serious) N Ear infections, frequent N Fibromyalgia N Prostate problems N Rheumatic fever N Anxiety N Migraines Y Ulcers - Peptic N Diabetes Type 2 N Kidney disease N Osteoporosis / Osteopenia N CHF N Headaches (not migraines) Y Back problems - chronic N High cholesterol / Hyperlipidemia N Tuberculosis N Insomnia N Heart disease N Allergies Y Lupus N Seizures N Sleep apnea N Heart attack / MO N Head Injury / Concussions N Hepatitis Y Gynecological History Statement/Question Response Previous Abnormal PAP N Flow Heavy Do you spot between periods? N Date of LMP 01/10/2019 Abortions 0 Miscarriages 0 Spontaneous Vaginal Deliveries 0 Date of last pelvic exam na Current Control Method Other Living Children 0 Twins 0 Last Mammogram (do not use - put date in to Date of Last Mammogram field) na Are you sexually active? Yes Severe Cramps? Y 1 Date Gis Consultant Hx updated 04/09/2019 Age at Menarche 10 Current Control Method None Still Births 0 Last PAP Smear na Para 0 Frequency of Cycle (Q days) Previous STD N Previous Abnormal Mammogram N Definite Obstetrics History GPAL:G 1 P 0 0 0 0 Immunizations Vaccine Type Date Status Note Provider Nam e and Address Organization Details Recorded Time HPV, quadrivalent 3 completed Not Available [facility] 09/29/2019 02:11:49 meningococcal ACWY, unspecified formulation 0 completed Not Available [facility] 09/29/2019 02:16:24 HPV, quadrivalent 0 completed Not Available [facility] 09/29/2019 02:11:49 DTaP, unspecified formulation 9 completed Not Available [facility] 07/29/2011 05:07:03 IPV 4 completed Not Available [facility] 07/29/2011 05:07:03 varicella 0 completed Not Available [facility] 07/29/2011 05:07:03 IPV 9 completed Not Available [facility] 07/29/2011 05:07:03 DTaP, unspecified formulation 4 completed Not Available [facility] 07/29/2011 05:07:03 Hep A, unspecified formulation 4 completed Not Available [facility] 07/29/2011 05:07:03 MMR 0 completed Not Available [facility] 07/29/2011 05:07:03 Hib, unspecified formulation 9 completed Not Available [facility] 07/29/2011 05:07:03 Hib, unspecified formulation 0 completed Not Available [facility] 07/29/2011 05:07:03 Hep B, unspecified formulation 9 completed Not Available [facility] 07/29/2011 05:07:03 IPV 0 completed Not Available [facility] 07/29/2011 05:07:03 Hib, unspecified formulation 9 completed Not Available [facility] 07/29/2011 05:07:03 DTaP, unspecified formulation 9 completed Not Available [facility] 07/29/2011 05:07:03 varicella 9 completed Not Available [facility] 07/29/2011 05:07:03 Hep A, unspecified formulation 9 completed Not Available [facility] 07/29/2011 05:07:03 IPV 9 completed Not Available [facility] 07/29/2011 05:07:03 DTaP, unspecified formulation 0 completed Not Available [facility] 07/29/2011 05:07:03 Hep B, unspecified formulation 9 completed Not Available [facility] 07/29/2011 05:07:03 HPV, unspecified formulation 9 completed Not Available [facility] 07/29/2011 05:07:03 Hib, unspecified formulation 9 completed Not Available [facility] 07/29/2011 05:07:03 Hep B, unspecified formulation 9 completed Not Available [facility] 07/29/2011 05:07:03 MMR 4 completed Not Available [facility] 07/29/2011 05:07:03 DTaP, unspecified formulation 9 completed Not Available [facility] 07/29/2011 05:07:03 Past Encounters Encounter ID Performer Location Encounter Start Date Encounter Closed Date Diagnosis/Indication Diagnosis SNOMED-CT Code Diagnosis ICD10 Code Diagnosis Note [id number] [facility] [address] [place] [address] 06/02/2010 09:35:23 06/02/2010 11:49:53 [id number] Uri Arechiga APRN, [facility] [address] [place] [address] 09/13/2012 10:31:25 09/13/2012 11:56:09 [id number] [facility] [address] [place] [address] 09/29/2012 12:34:10 09/29/2012 13:37:47 [id number] [facility] [address] [place] [address] 2012 10:01:15 2012 10:24:39 [id number] Uri Arechiga APRN, [facility] [address] [place] [address] 11/10/2012 09:52:04 11/10/2012 10:35:54 [id number] Silva SESAY [address] [place] [address] 12/05/2012 11:51:10 12/05/2012 13:04:02 [id number] Julia Matthew NP [facility] [address] [place] [address] 12/07/2012 14:46:40 12/07/2012 15:49:43 [id number] Julia Matthew NP [facility] [address] [place] [address] 12/08/2012 11:46:42 12/08/2012 12:42:55 [id number] Julia Matthew NP [facility] [address] [place] [address] 12/15/2012 09:53:03 12/15/2012 10:45:33 [id number] KYLE SESAY [facility] [place] [address] 04/09/2019 10:51:15 04/09/2019 12:07:57 Routine care 426830242 Z34.91 Gestation period, 12 weeks 75107546 Z3A.12 History of hepatitis C 0854610608 9101 Z86.19 Nausea and vomiting 1693 1999 R11.2 [id number] KYLE PISANOSE OBRalf [address] [place] [address] 04/17/2019 10:53:00 04/17/2019 12:12:07 Routine care 538218962 Z34.91 Gestation period, 13 weeks 85597707 Z3A.13 Viral hepatitis C 927349 07 B19.20 Hepatitis A detected 165 680862 R89.5 Nausea and vomiting 1693 1999 R11.2 [id number] PAULO Bobo [address] [place] [address] 04/17/2019 10:53:10 04/17/2019 11:35:15 with uncertain dates 170275424 Z34.01 [id number] KYLE MARTINEZ CLAUDERalf [address] [place] [address] 04/27/2019 12:21:22 04/27/2019 13:16:24 Gestation period, 13 weeks 66584407 Z3A.13 Hepatitis A detected 165 884646 R89.5 Viral hepatitis C 691120 07 B19.20 Nausea and vomiting 1693 1999 R11.2 [id number] [facility] [address] [place] [address] 05/15/2019 10:45:49 05/15/2019 11:33:53 Routine care 723577569 Z34.91 Gestation period, 16 weeks 75241529 Z3A.16 Viral hepatitis C 353295 07 B19.20 [id number] [facility] [address] [place] [address] 05/29/2019 10:53:54 05/29/2019 12:23:40 Viral hepatitis C 38900943 B19.20 Routine an tenatal care 499953155 Z34.91 Gestation period, 18 weeks 53238976 Z3A.18 [id number] KYLE PISANOSE [address] [address] 06/11/2019 09:16:42 06/11/2019 09:58:42 Viral hepatitis C 84024297 B19.20 Gestation period, 20 weeks 36885548 Z3A.20 Vaginal bl eeding complicating early 313065593 O20.9 [id number] KYLE MARTINEZ LÁZARO [facility] [place] [address] 07/02/2019 10:27:16 07/02/2019 11:16:10 Viral hepatitis C 51671841 B19.20 Gestation period, 23 weeks 36762158 Z3A.23 Routine an tenatal care 229836915 Z34.91 [id number] KYLE MICHELLE SESAY [address] [place] [address] 07/30/2019 10:18:41 07/30/2019 11:08:28 Routine care 853873472 Z34.91 Gestation period, 27 weeks 23660695 Z3A.27 Viral hepatitis C 646523 07 B19.20 Small for gestational age fetus 556715367 P05.10 [id number] KYLE PISANOSE SESAY [facility] [place] [address] 08/14/2019 17:08:37 08/14/2019 18:02:29 Viral hepatitis C 37544762 B19.20 Routine an tenatal care 598579376 Z34.91 Gestation period, 29 weeks 83679199 Z3A.29 Right uppe r quadrant pain 059793708 R10.11 [id number] PAULO Bobo [address] [place] [address] 08/14/2019 17:08:48 08/14/2019 17:24:33 Poor growth affecting management 239813763 O36.5931 [id number] SHYAM WORTHY [id number] [facility] [address] [facility] [address] [place] [address] 08/29/2019 09:56:59 08/29/2019 11:28:46 Chronic active hepatitis C 152272586 B18.2 chronic viral active hepatitis C diagnosed about a year ago. Initially looking back her viral load is very low in April and is marginally higher but still relatively low as of last check in July. We discussed the virus and how defects liver and can lead to potential scarring of the liver additional ly discussed transmissi on and the need for any of her sexual partners to get tested though the risk of sexual transmissi on is relatively low. There is a risk of transmissi on to her unborn child but again the risk is fairly low. Patient would benefit from antiviral therapy. We will get her set up for lab workup and serum fibrosis markers to be done a couple weeks after she delivers. We discussed the fact that she would need advanced fibrosis to get medication coverage from Medicaid. If for any reason she loses her medical insurance however, we can move forward with applying for free medication through the patient assistance program. We will get all need to signatures for all of the above to see which way we end up going. Will get the lab workup in mid October and see her back in early November for follow-up 41329825 Z33.1 Currently 31 weeks . After she delivers will get the full lab workup and test and move forward with ordering antiviral medication s I discussed with her the importance of following up after delivery because even if she loses her insurance we have a window of opportunit y to get her antiviral treatment at that time Right uppe r quadrant pain 975605141 R10.11 some mild right upper quadrant abdominal pain. Liver is palpable and slightly enlarged which is certainly normal for . She is experienci ng some discomfort and paresthesi as. Will get a dedicated liver ultrasound just for screening purposes at this time. [id number] KYLE SESAY [address] [place] [address] 08/29/2019 15:51:01 08/29/2019 17:00:49 Routine care 988875830 Z34.91 Gestation period, 31 weeks 25694190 Z3A.31 Viral hepatitis C 902233 07 B19.20 [id number] KYLE SESAY [address] [place] [address] 09/14/2019 09:50:46 09/14/2019 10:39:23 Routine care 275831766 Z34.91 Gestation period, 33 weeks 22141134 Z3A.33 Viral hepatitis C 345509 07 B19.20 Pruritic disorder 644515 002 L29.9 [id number] KYLE SESAY [address] [place] [address] 09/19/2019 15:59:38 09/19/2019 17:37:57 Viral hepatitis C 70039552 B19.20 Gestation period, 34 weeks 83300553 Z3A.34 Cholestasi s of 212248355 O26.619 High risk 4720 0007 O09.93 [id number] KYLE MARTINEZ OBHANANE [address] [place] [address] 09/25/2019 08:53:44 09/25/2019 10:24:26 High risk 43039887 O09.93 Viral hepatitis C 785145 07 B19.20 Gestation period, 35 weeks 92667040 Z3A.35 Cholestasi s of 313155495 O26.306 [id number] KYLE SESAY [address] [place] [id number] 3 09/26/2019 14:25:50 09/26/2019 15:20:13 Cholestasis of 934796926 O26.619 Viral hepatitis C 902581 07 B19.20 High risk 4720 0007 O09.93 Gestation period, 35 weeks 70404125 Z3A.35 [id number] PAULO Bobo [address] [place] [address] [id number] 3 09/25/2019 08:53:39 09/25/2019 11:40:32 Cholestasis of 853995072 O26.880 [id number] KYLE SESAY [address] [place] [address] [id number] 3 10/08/2019 14:16:06 10/08/2019 14:50:08 state 27175025 Z39.2 Viral hepatitis C 494485 07 B19.20 Contraception care 58595 5005 Z30.40 [id number] KYLE SESAY [address] [place] [address] [id number] 3 11/12/2019 15:05:41 11/12/2019 17:06:27 state [id number] Z39.2 Chronic hepatitis C 1283 19754 B18.2 [id number] KYLE SESAY [address] [place] [address], [place] [phone] 3 11/19/2019 10:36:22 11/19/2019 11:28:15 Insertion of subcutaneous contraceptive 847486131 Z30.9 Depressive disorder 3548 9007 F32.9 [id number] SHYAM WORTHY [id number] [address] [place] [address] [phone] 9 11/26/2019 09:25:23 11/26/2019 10:21:16 Chronic active hepatitis C 285343472 B18.2 Low viral load, genotype 1A, treatment naive. She actually had a viral load drawn at the end of October and again in early November. Her viral load dropped from 01/05 1000 down to just over 700. I am wondering if she might even be able to clear it on her own as one in five people are able to do so. Her transamina ses were quite elevated, particular ly her ALT. This was likely related to . This seems to be significan tly down trending now and her pruritus has resolved indicating this is probably a induced hepatitis. Fibrosis markers indicate significan t inflammati on and F2 fibrosis. The hep B core antibody was missed. We will send her down to get this drawn today and submit to medicate for approval for antiviral therapy. As a backup plan we need to get an appropriat e financial statement from her and try to get her in touch with our social service manager to discuss getting on the indigent program in [place] she loses her Medicaid which she expects to. We discussed her findings as well as the plan moving forward. [id number] Z33.1 She has since delivered her baby. Her transamini tis is slowly improving Right uppe r quadrant pain [id number] R10.11 Liver ultrasound was performed and was completely normal and negative. 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 Low viral load no evidence of fibrosis. She was denied Medicaid. I discussed with the patient entering the legal action against the state of [place] she's willing to do so. I gave her the number to [employer] law [email or web address]. We discussed potential transmissi on of hepatitis C Through sexual transmissi on and blood. The patient has just had a baby she's five months old I explain to the patient that the baby will test positive for the first year and recommende d not testing the baby for hepatitis C until after one year. 95% of the children will clear hepatitis C. Her low viral load also will play a factor in decreasing likelihood of transmissi on of hepatitis C to her new baby. Health Concerns Section Related Observation LastModified by Organization Detai ls LastModified Time None Recorded Concern Status LastModified by Organization Details LastModified Time None Recorded Advance Directives Directive None Recorded Payers Encounter Date Sequence Insurance Name Policy Number Policy Thomas Covered Member ID Thomas Member ID Guarantor Name 10/08/2019 1 [facility] (MEDICAID HMO) GUICHO Elaine [id number] Bakari Lawson 11/12/2019 1 [facility] (MEDICAID HMO) GUICHO Elaine [id number] Bakari Lawson 11/19/2019 1 [facility] (MEDICAID HMO) GUICHO Elaine [id number] Bakari Lwason 11/26/2019 1 [facility] (MEDICAID HMO) GUICHO Elaine [id number] Bakari Lawson 02/20/2020 1 [facility] (MEDICAID HMO) GUICHO Elaine [id number] Bakari Lawson Notes Date Note Type Note Provider Name and Address Organization Details Recorded Time 10/08/2019 text/html Patient presents for follow-up status post delivery on 09/27/2019. complicated by hepatitis C and development of intrahepatic cholestasis of . Today she is doing well. Reports normal lochia. She does report episodes of crying for no reason, denies homicidal or suicidal ideation. She has good support at home. She desires Nexplanon for contraception. She has follow-up arranged with Gastroenterology for treatment of her hepatitis-C. She does report itching had improved however last couple of days she has noticed a little more itching. KYLE lujan, [place] - [facility] 10/08/2019 15:00:11 11/12/2019 text/html VisitReported bypatient.Onset/Timing :date of delivery: (09/27/19) Quality: (Pre term labor resulting in delivery) Context:complications of : (Chronic hepatitis C, interhepatic cholestasis in ); complications of labor: ; feeding choice: bottle; good support from partner/family Associated Symptoms:no abnormal bleeding; no pelvic pain; laceration well healed; no constipation; no fecal incontinence; no dysuria; no urinary incontinence; no fever; no problems; no mastitis Pap Smear In PregnancyPap performed today Contraceptive PlanImplant KYLE MARTINEZ le [facility] 11/12/2019 22:36:21 11/19/2019 text/html Patient presents for Nexplanon placement. She is also reporting depression, would like to restart her Prozac. Denies homicidal or suicidal ideation. Has good family support. KYLE MARTINEZ le [facility] 11/19/2019 22:29:41 11/26/2019 text/html Ms Elaine is a 19-year-old female who presents today for follow-up with regard to history of chronic hepatitis-C. As previously mentioned it was diagnosed about a year ago from IV drug use. She was initially seen well 31 weeks . She is interested in pursuing antiviral therapy. She delivered her baby in September of 2019. She is not currently breast-feeding. She does appear to have had a bit of -induced hepatitis and pruritus. Transaminases were elevated better now down trending SHYAM WORTHY [address] , [place], [phone], [facility] 11/26/2019 10:54:11 OBGyn Episode Ob Episode Information Episode Created Date Number of Fetuses Patient Bloodtype Patient rh Status Prepregnancy Weight lbs Domestic Partner Domestic Partner Phone Father Name Flask Carrier Status 04/09/20 19 1 O Positive 115 Maria Del Carmenin Edmundo OPEN Fetus Data First Name Last Name Admitted to NICU Weight (g) Sex Living Outcome Pediatric Complications Fetus ID Race Codes Race Delivery Type Ty barahona Caudl e [phone] 05 F true Prematur e [id number] Vaginal Problems Problem Notes Problem Name Start Date End Date Resolution [place] [address] 8006 Chlamydial infection [id number] Viral hepatitis C 62573014 Sebastian Calculation Initial Sebastian Date Initial Exam Date Initial Exam Provider Initial Ultrasound Date Last Menstrual Period Date Ultra Sound Weeks Gestation 10/17/2019 04/09/2019 01/10/2019 0 Eighteen To Twenty Week Sebastian Update Ultra Sound Date Fundal Height At Umbil Quickening Date Ultra Sound Latest Weeks Gestation Final Sebastian Confirmed By Final Sebastian Confirmed Date Final Sebastian Date Ultra Sound Latest Days Gestation 04/17/20 19 12 [email or web address] 04/17/2019 10/29/19 20 1 Pre-dee dee Flowsheet Flowsheet Date 04/09/2019 Joseph Score Blood Edema Fundus Height Fundus Units Glucose Ketones Leukocytes Nitrite Labor Signs Protein Cervic Dilation Cervic Effacement Cervic Station 1+ none none negative trace Type Weight in lbs Pre/Post Dialysis Refused Weight 115.855458785625 BP Diastolic BP Location Tested BP Systolic BP Type 70 L arm 116 sitting Fetus Heart Rate Present A 160 Present Fetus Movement A No Comments Patient is a 18-year-old G1 at 12 weeks 5 days by uncertain LMP presents for new OB visit. At today's visit she is reporting nausea vomiting. Medications provided. Patient reports that 6 months ago she was diagnosed with hepatitis-C. She has had no formal workup for other evaluation. Reports to history of IV drug use however has been clean for over a year. Abdominal ultrasound performed confirming single intrauterine with positive cardiac activity measuring 10 weeks. Dating ultrasound ordered. New OB labs with hepatitis panel ordered. We did discuss hepatitis-C in and the risks and complications associated. Will provide patient with gastroenterology referral once diagnosis has been confirmed. Flowsheet Date 04/17/2019 Joseph Score Blood Edema Fundus Height Fundus Units Glucose Ketones Leukocytes Nitrite Labor Signs Protein Cervic Dilation Cervic Effacement Cervic Station Type Weight in lbs Pre/Post Dialysis Refused BP Diastolic BP Location Tested BP Systolic BP Type Fetus Heart Rate Present Fetus Movement Comments Flowsheet Date 04/17/2019 Joseph Score Blood Edema Fundus Height Fundus Units Glucose Ketones Leukocytes Nitrite Labor Signs Protein Cervic Dilation Cervic Effacement Cervic Station neg none none negative trace Type Weight in lbs Pre/Post Dialysis Refused Weight 117.486616632917 BP Diastolic BP Location Tested BP Systolic BP Type 78 L arm 112 sitting Fetus Heart Rate Present A 167 Present Fetus Movement A No Comments Continues to struggle nausea vomiting, did well with Bonjesta, refill sent to pharmacy. Dating ultrasound performed, inconsistent with LMP. Will order additional lab testing for her hepatitis A and C. Also reviewed that cultures were chlamydia positive, both she and her partner will be treated. Flowsheet Date 04/27/2019 Joseph Score Blood Edema Fundus Height Fundus Units Glucose Ketones Leukocytes Nitrite Labor Signs Protein Cervic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
[2024-12-07] MEDS: predniSONE 20 MG TABLET 40 MG PO (14:00)
[2024-12-07 14:02] VITALS: BP 114/75; PULSE 94; RESP 16; TEMP 36.6; O2SAT 100
== END 2024-12-07 14:08 | disposition home or self-care (01) ==
PROVIDERS: Emergency Provider Emergency Medicine; PCP Family Medicine
DX: L71.0 Perioral dermatitis (principal); F17.290 Nicotine dependence, other tobacco product, uncomplicated
CPT/HCPCS: 99283; J7512

== ENCOUNTER 2025-01-07 21:40 | Emergency (ER) | payer BC, SELFPAY ==
--- OUTSIDE RECORDS SUMMARY | 2025-01-07 21:42 | XMS_ITS | Data Portability ---
Author Organization [facility] MEHRANYosef Fonscea Address [address] [place] [address] Assessment No assessment recorded. Plan of Treatment [...] Details Recorded Time Appendectomy completed EVELIA Raymundo [facility] 03/20/2024 14:03:32 Imaging Results None recorded. Procedure [...] Updated DateTime 03/20/2024 165.1 cm 21.1 kg/m2 75618.23 g 141 mm[Hg] 84 mm[Hg] EVELIA Trevizo [facility] 13:59:16 Social History Question Answer Notes LastModified [...] Medical History Condition Response Anxiety Disorder Y Anemia Y Hepatitis Y Gynecological History Statement/Question Response [...] SNOMED-CT Code Diagnosis ICD10 Code Diagnosis Note [id number] TREVON Oliva 14 OB [address] [facility] [place] [address] 03/20/2024 13:50:13 03/21/2024 09:28:36 Contraception care management [id number] Z30.9 Patient here for control discussion . [...] Thomas Member ID Guarantor Name 03/20/2024 1 [facility] (MEDICAID REPLACEMENT - HMO) [id number] Annie Marcella [id number] Annie Naranjo Notes Date Note Type [...] to have mirena- states normal pap in [place] done last year, will obtain records- no other complaints or concerns MARIANNA Oliva- Attn: Accounting,[address] [facility], [place], [address], [facility] 03/20/2024 15:05:20 OBGyn Episode Ob Episode Information Episode Created Date Number of Fetuses Patient Bloodtype Patient rh Status Prepregnancy Weight lbs Domestic Partner Domestic Partner Phone Father Name Rn Case Manager Hospice Status 03/20/20 24 1 CLOSED Fetus Data First Name Last Name Admitted to NICU Weight (g) Sex Living Outcome Pediatric Complications Fetus ID Race Codes Race Delivery Type 5.88 8704 F Prematur e [id number] Vaginal Sebastian Calculation Initial Sebastian Date Initial [...] Tubal Sterilization Discharge Date Comments 0 36 [place] Discharge Information Feeding Method Contraceptive Method Maternal HG B and HCT Levels
[2025-01-07 21:43] VITALS: BP 132/85; PULSE 117; RESP 18; TEMP 36.8; O2SAT 100
[2025-01-07 21:57] LABS: Add Urine Microscopic? YES; Appearance Urine Clear (Clear); Bilirubin Urine Negative (Negative); Blood Urine Negative (Negative); Color Urine Yellow (Yellow); Glucose Urine UA Negative (Negative); Ketones Urine Negative (Negative); Leukocyte Esterase Ur Negative LEU/UL (Negative); Nitrate Urine Negative (Negative); Protein Urine Trace (Negative); Specific Grav Ur 1.015 (1.010-1.020); pH Urine 7.5 (5.0-8.0)
[2025-01-07 21:59] LABS: Pregnancy On Board Control Positive; Urine Pregnancy Test Negative
[2025-01-07 22:02] LABS: Bacteria Urine None seen /hpf; Mucus Urine Rare /lpf; RBC Urine 0-2 /hpf (0-2); Squamous Epithelial Cell Urine Few /hpf (Few); WBC Urine 0-3 /hpf (0-3)
[2025-01-07] MEDS: LORazepam INJ (*CRX) 2 MG/ML VIAL 1 MG IV PUSH ×2 (22:02→23:46)
[2025-01-07] MEDS: SODIUM CHLORIDE 0.9% IV 1,000 ML 999 ML IV CONT ×2 (22:05→23:12)
[2025-01-07 22:12] LABS: Basophils Absolute Auto 0.06 K/mm3 (0.00-0.10); Basophils Percent Auto 0.6 % (0.0-1.0); Eosinophils Absolute Auto 0.06 K/mm3 (0.02-0.50); Eosinophils Percent Auto 0.6 % (1.0-6.0); Hematocrit 40.9 % (35.0-49.0); Hemoglobin 14.3 g/dL (12.0-15.0); Immature Granulocyte Absolute 0.03 K/mm3 (0.00-0.00); Immature Granulocyte Percent A 0.3 % (0.0-0.0); Lymphocytes Percent Auto 21.6 % (18.0-42.0); Mean Corpuscular Hemoglobin 29.5 pg (27.0-31.0); Mean Corpuscular Volume 84.3 fL (78.0-102.0); Monocytes Absolute Auto 0.74 K/mm3 (0.10-0.90); Monocytes Percent Auto 7.6 % (2.0-11.0); Neutrophils Absolute Auto 6.75 K/mm3 (1.70-7.20); Neutrophils Percent Auto 69.3 % (50.0-70.0); Platelet Count Result 303 K/mm3 (150-420); Red Blood Count 4.85 M/mm3 (4.20-5.40); White Blood Count 9.7 K/mm3 (4.8-10.8)
[2025-01-07 22:24] LABS: Alanine Aminotransferase 25 U/L (14-59); Albumin Level 4.1 g/dL (3.4-5.0); Alkaline Phosphatase 94 U/L (46-116); Anion Gap 11 mmol/L (4-12); Aspartate Amino Transferase 21 U/L (15-37); Bilirubin,Total 1.6 mg/dL (0.00-1.00); Blood Urea Nitrogen 8 mg/dL (7-18); Calcium 9.2 mg/dL (8.5-10.1); Carbon Dioxide 26 mmol/L (21-32); Chloride 100 mmol/L (98-108); Estimated CRCL calculation 64 ml/min; Estimated Glomerular Filt Rate > 60; Glucose 101 mg/dL (70-99); Magnesium 1.3 mg/dL (1.8-2.4); Osmolality Calculated 282 mOsm/kg (285-295); Potassium 2.8 mmol/L (3.5-5.1); Sodium 137 mmol/L (136-145); Total Protein 8.4 g/dL (6.4-8.2)
[2025-01-07 22:48] VITALS: BP 123/97; PULSE 98; RESP 20; O2SAT 100
[2025-01-07] MEDS: POTASSIUM CHLORIDE 20 MEQ ER TABLET 40 MEQ PO (23:14)
[2025-01-07] MEDS: MAGNESIUM OXIDE 400 MG TABLET PO (23:14)
--- NOTE | 2025-01-07 23:17 | ED_ITS ---
HPI - Alcohol General Chief Complaint: Alcohol Stated Complaint: alcohol withdraw Time Seen by Provider: 01/07/25 21:50 Source: patient Mode of arrival: ambulatory Limitations: no limitations History of Present Illness HPI narrative: patient is a 24-year-old female with a significant past medical history that presents today for alcohol withdrawal. Patient has alcohol withdrawal she has the shakes she has a CIWA score about an 8. She has some nausea and has not vomited yet but feels like she could. She is also very dehydrated and has not had 1 her couple days her last drink was at 1:00 a.m. last night. She is to take 10 20 shots per day which he has done that for the past 5 years. But now she has quit cold turkey and is having severe withdrawal because this. complaint: alcohol withdrawal Last drink: hours (ago) Chronic alcohol use: Yes Previous visits for alcohol intoxication: No Recent trauma: No Associated symptoms: nausea, tremors and abdominal pain Related Data Allergies Allergy/AdvReac Type Severity Reaction Status Date / Time No Known Allergies Allergy Verified 09/08/24 16:30 Review of Systems 2 Review of Systems: All systems reviewed & are unremarkable except as noted in HPI and below Constitutional: Constitutional: Reports as per HPI Eyes: Eyes: Reports no additional eye complaints ENT: Reports system reviewed and no additional complaints, except as documented Cardiovascular: Cardiovascular: Reports no additional cardiovascular complaints Respiratory: Respiratory: Reports no additional respiratory complaints Gastrointestinal: Gastrointestinal: Reports as per HPI, Reports abdominal pain and Reports nausea Genitourinary: Genitourinary: Reports no additional female genitourinary complaints Musculoskeletal: Comments: Tremors Integumentary/Breasts: Skin/Breast: Reports system reviewed and no additional complaints, except as docu Neurologic: Reports as per HPI and Reports weakness Psychiatric: Psychiatric: Reports as per HPI and Reports anxiety Endocrine: Endocrine: Reports fatigue and Reports polydipsia Hematologic/Lymphatic: Hematologic/Lymphatic: Reports no additional hematologic/lymphatic complaints Allergic/Immunologic: Allergic/Immunologic: Reports no additional allergic/immunologic complaints [facility] Past Medical History Medical History Hepatitis C Surgical History Surgical History History of appendectomy Social History Social History Smoking status: Current every day smoker Tobacco type: e-cigarettes/vaping Alcohol intake: current Alcohol use details: occasional Substance use type: marijuana Exam 2 Const: General: healthy appearing Nutritional Appearance: well nourished Orientation/consciousness: patient oriented x3 Limitations: no limitations HENMT: Head: normal to inspection Ears: external ears normal F shelli/Nose/Sinus: Normal external nose present Face and sinus: normal facial exam Mouth: Yes Normal oral and palatal mucosa present Eyes: Conjunctivae: conjunctivae normal Pupils: Equal, round and reactive pupils present EOM: EOMs intact bilaterally Neck: Neck: normal visual inspection Chest: Chest palpation & inspection: normal inspection of the chest Resp: Effort & Inspection: normal respiratory effort Auscultation: clear to auscultation bilaterally Cardio: Rate: regular rate Rhythm: regular rhythm GI: GI Palp: Yes Soft to palpation and Yes Tenderness to palpation present (GI) Back/Spine/Pelvis: Back: no CVA tenderness Skin: General skin exam: normal color Rashes: no rashes Wounds: no wounds Neuro: General: patient oriented x3 Cranial nerves: Yes Nystagmus not present Speech: normal speech Extrem: General: normal to inspection Psych: Mental Status: mental status grossly normal Affect: Anxious affect present Attitude: cooperative Course Vital Signs Vital signs: Vital Signs Temperature 98.2 F 01/07/25 21:43 Pulse Rate 117 H 01/07/25 21:43 Respiratory Rate 18 01/07/25 21:43 Blood Pressure 132/85 01/07/25 21:43 Pulse Oximetry 100 01/07/25 21:43 Oxygen Delivery Room Air 01/07/25 21:43 Temperature 98.2 F 01/07/25 21:43 Pulse Rate 98 01/07/25 22:48 Respiratory Rate 20 01/07/25 22:48 Blood Pressure 123/97 H 01/07/25 22:48 Pulse Oximetry 100 01/07/25 22:48 Oxygen Delivery Room Air 01/07/25 22:48 MDM - Alcohol MDM Narrative Medical decision making narrative: patient clearly has alcohol withdrawal syndrome she has a CIWA of the non 8. She is tremors she is nauseated she has she is not feeling well her last drink was at 1:00 a.m. last night. Will give her 2 L of fluid already gave her 1 mg of Ativan IV 2 hours after that will give her 1 more mg Ativan. Discussed with her about possibly sending her home with a Librium taper just depending how she does here. Differential Diagnosis Differential diagnosis: Likely alcohol withdrawal syndrome Medical Records Attestation: I reviewed the patient's medical records. Lab Data Attestation: I reviewed the patient's lab results. 01/07/25 22:04 01/07/25 22:04 Labs: Lab Results 01/07/25 01/07/25 Range/Units 21:54 22:04 WBC 9.7 (4.8-10.8) K/mm3 RBC 4.85 (4.20-5.40) M/mm3 Hgb 14.3 (12.0-15.0) g/dL Hct 40.9 (35.0-49.0) % MCV 84.3 (78.0-102.0) fL MCH 29.5 (27.0-31.0) pg MCHC 35.0 (32-36) g/dL RDW 12.0 (11.6-14.4) % Plt Count 303 (150-420) K/mm3 MPV 10.0 (9.2-11.8) fl Immature Gran % (Auto) 0.3 H (0.0-0.0) % Neut % (Auto) 69.3 (50.0-70.0) % Lymph % (Auto) 21.6 (18.0-42.0) % [place] % (Auto) 7.6 (2.0-11.0) % Eos % (Auto) 0.6 L (1.0-6.0) % Baso % (Auto) 0.6 (0.0-1.0) % Lymph # (Auto) 2.10 (1.10-4.50) K/mm3 [place] # (Auto) 0.74 (0.10-0.90) K/mm3 Eos # (Auto) 0.06 (0.02-0.50) K/mm3 Baso # (Auto) 0.06 (0.00-0.10) K/mm3 Abs Immat Gran (auto) 0.03 H (0.00-0.00) K/mm3 Absolute Neuts (auto) 6.75 (1.70-7.20) K/mm3 Absolute Nucleated RBC 0.00 (0.00-0.00) K/mm3 Nucleated RBC % 0.0 (0-0.0) % Sodium 137 (136-145) mmol/L Potassium 2.8 L (3.5-5.1) mmol/L Chloride 100 (98-108) mmol/L Carbon Dioxide 26 (21-32) mmol/L Anion Gap 11 (4-12) mmol/L BUN 8 (7-18) mg/dL Creatinine 1.07 H (0.55-1.02) mg/dL Estim Creat Clear Calc 64 ml/min Estimated GFR > 60 (59 - ) Glucose 101 H (70-99) mg/dL Calculated Osmolality 282 L (285-295) mOsm/kg Calcium 9.2 (8.5-10.1) mg/dL Magnesium 1.3 L (1.8-2.4) mg/dL Total Bilirubin 1.6 H (0.00-1.00) mg/dL AST 21 (15-37) U/L ALT 25 (14-59) U/L Alkaline Phosphatase 94 (46-116) U/L Total Protein 8.4 H (6.4-8.2) g/dL Albumin 4.1 (3.4-5.0) g/dL Urine Color Yellow (Yellow) Urine Appearance Clear (Clear) Urine pH 7.5 (5.0-8.0) Ur Specific [place] 1.015 (1.010-1.020) Urine Protein Trace H (Negative) Urine Glucose (UA) Negative (Negative) Urine Ketones Negative (Negative) Ur Blood (Man) Negative (Negative) Urine Nitrate Negative (Negative) Urine Bilirubin Negative (Negative) Urine Urobilinogen 1.0 (0.2-1.0) mg/dL Leukocyte Esterase Rfl Negative (Negative) MOHIT/UL Urine RBC 0-2 (0-2) /hpf Urine WBC 0-3 (0-3) /hpf Ur Squamous Epith Cells Few (Few) /hpf Urine Bacteria None seen (None) /hpf Urine Mucus Rare /lpf Urine Test Negative Discharge Plan Discharge Clinical Impression: Alcohol withdrawal syndrome Patient Disposition: Home Condition: Stable Instructions: Alcohol Withdrawal (ED) Additional Instructions: Taper off of librium. DO NOT DRINK ANY MORE ALCOHOL. If feeling like the urge to drink follow up immediately with PCP. Patient Language: Bulgarian Prescriptions: New chlordiazepoxide HCl 10 mg capsule 10 mg PO DAILY Qty: 7 0RF Rx Instructions: Take one capsule daily x 5 days then take the last two capsules every other day. No Action desonide 0.05 % cream 1 applic topical BID PRN (Reason: skin irritation) Qty: 15 0RF cephalexin 500 mg capsule 500 mg PO BID 7 Days Qty: 14 0RF Follow-up/Referrals: Jamaal Hodges MD [Primary Care Provider] - Time of Disposition: 23:38
--- NOTE | 2025-01-08 00:16 | PC.NURSE ---
Pt reports feeling better and was given instructions on Librium use by Dr Stein. Pt given [facility] rehab info to get into a program for detox and AA.
[2025-01-08 00:22] VITALS: BP 140/85; PULSE 85; RESP 20; TEMP 36.6; O2SAT 99
== END 2025-01-08 00:23 | disposition home or self-care (01) ==
PROVIDERS: Emergency Provider Family Medicine; PCP Family Medicine
DX: F10.239 Alcohol dependence with withdrawal, unspecified (principal); F17.290 Nicotine dependence, other tobacco product, uncomplicated; Y90.9 Presence of alcohol in blood, level not specified
CPT/HCPCS: 36415; 80053; 81001; 81025; 83735; 85025; 96361; 96374; 96376; 99284; A9270; J2060; J7030